=== PATIENT | female | born 1990 | race Caucasian/White ===

== ENCOUNTER 2017-05-28 08:52 | Emergency (ER) | payer MEDICAID, OTHER ==
[2017-05-28] MEDS ORDERED: LORazepam INJ* 2 MG/ML 1 ML VIAL IV PUSH ONE (09:09)
--- NOTE | 2017-05-28 09:42 | RAD ---
HISTORY: Chest discomfort COMPARISONS: None VIEWS:1: Single frontal portable view of the chest at 9:20 AM FINDINGS: LINES AND TUBES: None. CARDIOMEDIASTINAL SILHOUETTE: The cardiomediastinal silhouette is normal for portable technique. PLEURA: The costophrenic angles are sharp. No pleural abnormalities are noted. LUNG PARENCHYMA: The lungs are clear. ABDOMEN: The upper abdomen is clear. There is no subphrenic gas. BONES AND SOFT TISSUES: No bone or soft tissue abnormalities are noted. IMPRESSION: NO ACTIVE CARDIOPULMONARY DISEASE.
[2017-05-28 09:53] LABS: Hematocrit 43 % (35-47); Hemoglobin 14.4 g/dl (12.0-16.0); Mean Corpuscular HGB Conc 34 g/dl (31-36); Mean Corpuscular Hemoglobin 34 pg (27-31); Mean Corpuscular Volume 101 fL (80-97); Mean Platelet Volume 8 um3 (7.4-10.4); Red Blood Count 4.23 10^6/ul (4.0-5.4); Red Cell Distribution Width 12 % (10.5-15); White Blood Count 7.7 10^3/ul (3.5-10.8)
[2017-05-28 10:06] LABS: Albumin 4.3 g/dL (3.2-5.2); BUN/Creatinine Ratio 16.5 (8-20); Calcium 8.9 mg/dL (8.6-10.3); EGFR Non-African American 89.4 (>60); Globulin 2.6 g/dL (2-4); Potassium 3.5 mmol/L (3.5-5.0); Total Bilirubin 0.5 mg/dL (0.2-1.0); Total Protein 6.9 g/dL (6.4-8.9)
[2017-05-28 10:24] LABS: T4 3.98 mcg/mL (6.09-12.23)
[2017-05-28 10:25] LABS: TSH (Thyroid Stimulating Horm) 1.68 mcIU/mL (0.34-5.60)
[2017-05-28 10:34] VITALS: BP 124/71
[2017-05-28 11:10] LABS: Magnesium 1.7 mg/dL (1.9-2.7)
--- NOTE | 2017-05-28 11:20 | ED ---
HPI Chest Pain - HPI Summary HPI Summary: Patient presents to ED with CC of chest burning feeling related to some anxiety. She states she has a hx of anxiety for which she takes buspirone daily. Lately, she has been feeling increased anxiety despite the medication, and has felt a burning sensation x 2 days with some SOB. Denies any chest pain , radiation of pain, diaphoresis, difficulty swallowing, abdominal pain or recent illness. Denies any significant personal medical hx or family history specific to cardiac disease. She is otherwise healthy. She has been under increase stress x2 weeks, and feels it may be d/t her anxiety. She has no medication at home for any breakthrough anxiety. PCP is Dl Guerra. VS stable. Denies recent travel, OCP or smoking hx. - History of Current Complaint Chief Complaint: EDGeneral Time Seen by Provider: 05/28/17 09:01 Hx Obtained From: Patient Hx Last Menstrual Period: 06/11/16 Onset/Duration: Started Days Ago Timing: Intermittent Initial Severity: Mild Current Severity: Mild Pain Intensity: 0 Pain Scale Used: 0-10 Numeric Chest Pain Location: Mid Sternal Chest Pain Radiates: No Character: Burning Aggravating Factor(s): Nothing Alleviating Factor(s): Nothing Associated Signs and Symptoms: Positive: Shortness of Breath - Risk Factors Pulmonary Embolism Risk Factors: Negative - Allergy/Home Medications Allergies/Adverse Reactions: Allergies Allergy/AdvReac Type Severity Reaction Status Date / Time No Known Allergies Allergy Verified 05/28/17 09:12 PMH/Surg Hx/FS Hx/Imm Hx Previously Healthy: Yes Endocrine/Hematology History: Denies: Hx Diabetes, Hx Thyroid Disease Cardiovascular History: Denies: Hx Hypertension, Hx Pacemaker/ICD Respiratory History: Denies: Hx Asthma, Hx Chronic Obstructive Pulmonary Disease (COPD) GI History: Denies: Hx Ulcer History: Denies: Hx Renal Disease Sensory History: Denies: Hx Hearing Aid Psychiatric History: Denies: Hx Panic Disorder Infectious Disease History: No Infectious Disease History: Denies: Hx Hepatitis, Hx Human Immunodeficiency Virus (HIV), History Other Infectious Disease, Traveled Outside the [place] in Last 30 Days - Family History Known Family History: Positive: None - Social History Alcohol Use: Occasionally Substance Use Type: Reports: None Hx Tobacco Use: Yes Smoking Status (MU): Current Every Day Smoker Type: Cigarettes Amount Used/How Often: 1/2 PPD Review of Systems Constitutional: Negative Eyes: Negative Positive: Chest Pain Positive: Shortness Of Breath Gastrointestinal: Negative Positive: no symptoms reported, see HPI Musculoskeletal: Negative Neurological: Negative Positive: Anxious All Other Systems Reviewed And Are Negative: Yes Physical Exam Triage Information Reviewed: Yes Vital Signs On Initial Exam: Initial Vitals Temp Pulse Resp BP Pulse Ox 98.1 F 115 19 143/91 100 05/28/17 08:54 05/28/17 08:54 05/28/17 08:54 05/28/17 08:54 05/28/17 08:54 Vital Signs Reviewed: Yes Appearance: Positive: Well-Appearing, Well-Nourished Skin: Positive: Warm, Skin Color Reflects Adequate Perfusion Head/Face: Positive: Normal Head/Face Inspection Eyes: Positive: EOMI, RAJINDER, Conjunctiva Clear Neck: Positive: Supple, No Lymphadenopathy Respiratory/Lung Sounds: Positive: Clear to Auscultation, Breath Sounds Present Cardiovascular: Positive: Normal, RRR, Pulses are Symmetrical in both Upper and Lower Extremities Abdomen Description: Positive: Nontender Musculoskeletal: Positive: Normal, Strength/ROM Intact Neurological: Positive: Sensory/Motor Intact, Alert, Oriented to Person Place, Time Psychiatric: Positive: Anxious - Lisa Coma Scale Coma Scale Total: 15 Diagnostics - Vital Signs Vital Signs Temp Pulse Resp BP Pulse Ox 05/28/17 10:30 92 124/71 99 05/28/17 10:27 20 05/28/17 10:00 83 127/71 100 05/28/17 09:28 125/87 05/28/17 09:10 98.1 F 102 16 130/82 100 05/28/17 09:04 106 100 05/28/17 09:03 130/82 05/28/17 08:54 98.1 F 115 19 143/91 100 - Laboratory Lab Results: Lab Results 05/28/17 05/28/17 Range/Units 09:30 09:30 WBC 7.7 (3.5-10.8) 10^3/ul RBC 4.23 (4.0-5.4) 10^6/ul Hgb 14.4 (12.0-16.0) g/dl Hct 43 (35-47) % MCV 101 H (80-97) fL MCH 34 H (27-31) pg MCHC 34 (31-36) g/dl RDW 12 (10.5-15) % Plt Count 233 (150-450) 10^3/ul MPV 8 (7.4-10.4) um3 Neut % (Auto) 79.4 (38-83) % Lymph % (Auto) 10.6 L (25-47) % [place] % (Auto) 8.1 (1-9) % Eos % (Auto) 0.7 (0-6) % Baso % (Auto) 1.2 (0-2) % Absolute Neuts (auto) 6.1 (1.5-7.7) 10^3/ul Absolute Lymphs (auto) 0.8 L (1.0-4.8) 10^3/ul Absolute Monos (auto) 0.6 (0-0.8) 10^3/ul Absolute Eos (auto) 0.1 (0-0.6) 10^3/ul Absolute Basos (auto) 0.1 (0-0.2) 10^3/ul Absolute Nucleated RBC 0 10^3/ul Nucleated RBC % 0 Sodium 139 (133-145) mmol/L Potassium 3.5 (3.5-5.0) mmol/L Chloride 107 (101-111) mmol/L Carbon Dioxide 26 (22-32) mmol/L Anion Gap 6 (2-11) mmol/L BUN 13 (6-24) mg/dL Creatinine 0.79 (0.51-0.95) mg/dL Est GFR ( Amer) 115.0 (>60) Est GFR (Non-Af Amer) 89.4 (>60) BUN/Creatinine Ratio 16.5 (8-20) Glucose 110 H (70-100) mg/dL Calcium 8.9 (8.6-10.3) mg/dL Magnesium 1.7 L (1.9-2.7) mg/dL Total Bilirubin 0.50 (0.2-1.0) mg/dL AST 17 (13-39) U/L ALT 14 (7-52) U/L Alkaline Phosphatase 71 (34-104) U/L Total Creatine Kinase 45 (10-223) U/L CK-MB (CK-2) 1.1 (0.6-6.3) ng/mL Myoglobin 11.8 L (14.3-65.8) ng/mL Troponin I 0.00 (<0.04) ng/mL Total Protein 6.9 (6.4-8.9) g/dL Albumin 4.3 (3.2-5.2) g/dL Globulin 2.6 (2-4) g/dL Albumin/Globulin Ratio 1.7 (1-3) TSH 1.68 (0.34-5.60) mcIU/mL Thyroxine (T4) 3.98 L (6.09-12.23) mcg/mL Result Diagrams: 05/28/17 09:30 05/28/17 09:30 Lab Statement: Any lab studies that have been ordered have been reviewed, and results considered in the medical decision making process. Chest Pain Course/Dx - Course Course Of Treatment: Patient given cardiac workup. Trop, xray, ekg all WNL. Labs OK. HR decreased upon arrival to WNL. Ativan 1mg given for anxiety symptoms and symptoms improved. Patient is given anxiety PO rx for breakthrough anxiety. Discussed with patient who agrees she feels this is what has been causing her symptoms. Denies family history or personal hx of cardiac problems. Very low suspician for cardiac relation. She will follow up with PCP next week and determine medication changes at that time. return to ED for worsening symptoms. Return precautions given. Patient understands and agrees with plan. Ok for discharge. - Chest Pain Differential Diagnosis/HQI/PQRI: Angina, Chest Wall, Other: - anxiety - Diagnoses Provider Diagnoses: Acute anxiety Discharge - Discharge Plan Condition: Stable Disposition: HOME Prescriptions: Lorazepam [Ativan 1 MG TAB] 1 mg PO TID #15 tab MDD 3 Patient Education Materials: Lorazepam (By mouth), Anxiety (ED) Referrals: Justin Real MD [Primary Care Provider] - Additional Instructions: Take 1 tab up to three times daily only for breakthrough anxiety not well controlled by your daily medication. Follow up with Dl Guerra either this week or next week if possible. If any symptoms become worse, return to the ED.
== END 2017-05-28 10:53 | disposition home or self-care (01) ==
LOC: ED 08:52
DX: R06.02 Shortness of breath (principal); F17.210 Nicotine dependence, cigarettes, uncomplicated; R07.9 Chest pain, unspecified; F41.9 Anxiety disorder, unspecified
CPT/HCPCS: 36415; 71010; 80053; 82550; 82553; 83735; 83874; 84436; 84443; 84484; 85025; 93005; 96374; 99282; J2060

== ENCOUNTER 2017-11-05 08:54 | Emergency (ER) | payer OTHER ==
[2017-11-05 09:20] VITALS: BP 114/63
--- NOTE | 2017-11-08 01:03 | UC ---
Complaint Female HPI - HPI Summary HPI Summary: Pleasant 27 yo female present with c/o "bump" progressively worse over the last several days. Tried squeezing it to no avail, increased pain and swelling. Thinks she may have seen a "hole" at the bump. Denies other issues. On BCP. No fever /chills. No rash (except "bump"). No GI issues. No hx similar. Does shave, not recently. - History Of Current Complaint Chief Complaint: UCGU Stated Complaint: PERSONAL Time Seen by Provider: 11/05/17 09:58 Hx Obtained From: Patient, Family/Combat Systems Officer Hx Last Menstrual Period: 10/09/17 Pain Intensity: 0 Pain Scale Used: 0-10 Numeric - Allergies/Home Medications Allergies/Adverse Reactions: Allergies Allergy/AdvReac Type Severity Reaction Status Date / Time No Known Allergies Allergy Verified 11/05/17 09:20 Home Medications: Home Medications Omeprazole [Prilosec] 20 mg PO DAILY 11/05/17 [History Confirmed 11/05/17] busPIRone TAB* [Buspar TAB*] 10 mg PO DAILY 11/05/17 [History Confirmed 11/05/17 ] PMH/Surg Hx/FS Hx/Imm Hx Previously Healthy: Yes - Surgical History Surgical History: None - Family History Known Family History: Positive: None - Social History Alcohol Use: Weekly Substance Use Type: None Smoking Status (MU): Current Every Day Smoker Type: Cigarettes Amount Used/How Often: 1/2 PPD Household Exposure Type: Cigarettes - Immunization History Most Recent Influenza Vaccination: NOT UTD Review of Systems Constitutional: Negative Skin: Other - see hpi Eyes: Negative ENT: Negative Respiratory: Negative Cardiovascular: Negative Gastrointestinal: Negative Genitourinary: Other - see hpi Motor: Negative Neurovascular: Negative Musculoskeletal: Negative Neurological: Negative Psychological: Negative Is Patient Immunocompromised?: No All Other Systems Reviewed And Are Negative: Yes Physical Exam Triage Information Reviewed: Yes Appearance: Well-Appearing - conversing easily and appropriately. NAD. Nontoxic appearance., Well-Nourished Vital Signs: Initial Vital Signs Temp 97.7 F 11/05/17 09:11 Pulse 102 11/05/17 09:11 Resp 16 11/05/17 09:11 BP 114/63 11/05/17 09:11 Pulse Ox 100 11/05/17 09:11 Vital Signs Reviewed: Yes Eye Exam: Normal - grossly normal ENT Exam: Normal - grossly normal. No sores reported post oroph. Neck exam: Normal Neck: Positive: Supple Respiratory Exam: Normal - no tachypnea, no dyspnea Cardiovascular Exam: Normal Abdominal Exam: Normal Abdomen Description: Positive: Nontender, Soft Musculoskeletal Exam: Normal - gait steady moves x 4 exts Neurological Exam: Normal - grossly intact Psychological Exam: Normal Skin Exam: Other - L labial region with approx 4cm x 3.5cm x 3 cm redness, swelling. Tender. There is approx 0.75 cm diam opening with yellowish purulence expressed. Complaint Female Dx - Course Course Of Treatment: L labia, likely Bartholin's cyst with spontaneous drainage. Given drainage to exterior, at this point I/D is not indicated. However, if worse or new issues, despite good wound care and po abx, then I/D could be reconsidered. D/w pt exam findings, coa / tx plan, including recommendation for close f/u with pcp (RENALDO ok too). Questions as posed answered to the best of my ability. - Differential Dx/Diagnosis Provider Diagnoses: L labial abscss Discharge - Discharge Plan Condition: Stable Disposition: HOME Prescriptions: Amoxicillin/Clavulanate TAB* [Augmentin TAB 875*] 875 mg PO BID #20 tab Patient Education Materials: Abscess (ED) Forms: *Work Release Referrals: Dl Guerra SPORTS PHYSIOLOGIST [Primary Care Provider] - Additional Instructions: Please follow up with your doctor this week (Saturday) as scheduled. Seek medical attention for worse or new problems in the meantime. Avoid taking antibiotic within 2 hours of omeprazole.
== END 2017-11-05 10:33 | disposition home or self-care (01) ==
LOC: UCEAST 08:54
DX: N76.4 Abscess of vulva (principal); B95.0 Streptococcus, group A, as the cause of diseases classified elsewhere; F17.210 Nicotine dependence, cigarettes, uncomplicated
CPT/HCPCS: 87070; 87077; 99212; G0463

== ENCOUNTER 2017-11-07 22:53 | Emergency (ER) | payer OTHER ==
[2017-11-08] MEDS ORDERED: Ibuprofen TAB* 600 MG PO ONE (00:02)
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
[2017-11-08 01:09] VITALS: BP 124/85
== END 2017-11-08 01:08 | disposition home or self-care (01) ==
LOC: ED 22:53
DX: S00.93XA Contusion of unspecified part of head, initial encounter (principal); Y09 Assault by unspecified means; Y92.9 Unspecified place or not applicable; F17.210 Nicotine dependence, cigarettes, uncomplicated
CPT/HCPCS: 99282; A9270-GY

== ENCOUNTER 2017-12-10 11:58 | Emergency (ER) | payer OTHER ==
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
[2017-12-10 14:33] VITALS: BP 126/69
--- NOTE | 2017-12-10 14:43 | RAD ---
HISTORY: Pelvic pain, bloating COMPARISONS: CT dated December 17, 2003 TECHNIQUE: Multiple transverse and longitudinal ultrasound images were obtained of the pelvis using grayscale, color Doppler, and spectral Doppler imaging using the endovaginal transducer. FINDINGS: UTERUS: The uterus measures 7.4 x 3.3 x 4.3 cm. The uterus is normal in shape, size, contour, and echotexture. ENDOMETRIUM: The endometrial stripe is smooth. The endometrium measures 0.4 cm in thickness. An IUD is noted centrally within the endometrial cavity towards the fundus. CUL-DE-SAC: There is a small amount of simple fluid within the cul-de-sac. This may be physiologic in a reproductive age female. RIGHT OVARY: The right ovary measures 2.8 x 1.7 x 1.6 cm. Normal arterial and venous waveforms are identifiable within the ovary on spectral Doppler imaging. LEFT OVARY: The left ovary measures 3 x 1.7 x 2.5 cm. Normal arterial and venous waveforms are identifiable within the ovary on spectral Doppler imaging. BLADDER: The bladder is not well visualized. OTHER: None IMPRESSION: 1. AN IUD IS NOTED CENTRALLY WITHIN THE ENDOMETRIAL CAVITY TOWARDS THE FUNDUS. 2. THERE IS A SMALL AMOUNT OF SIMPLE FLUID WITHIN THE CUL-DE-SAC. THIS MAY BE PHYSIOLOGIC IN A REPRODUCTIVE AGE FEMALE..
[2017-12-10 19:36] LABS: ABS Basophils 0.2 10^3/ul (0-0.2); ABS Eosinophils 0.2 10^3/ul (0-0.6); ABS Lymphocytes 2.5 10^3/ul (1.0-4.8); ABS Nucleated RBC 0 10^3/ul; Eosinophil % 1.5 % (0-6); Hematocrit 43 % (35-47); Hemoglobin 14.5 g/dl (12.0-16.0); Lymphocyte % 22.9 % (25-47); Mean Corpuscular HGB Conc 34 g/dl (31-36); Mean Corpuscular Hemoglobin 34 pg (27-31); Mean Corpuscular Volume 101 fL (80-97); Mean Platelet Volume 8 um3 (7.4-10.4); Nucleated Red Blood Cells % 0; Platelet Count 284 10^3/ul (150-450); Red Blood Count 4.26 10^6/ul (4.0-5.4); Red Cell Distribution Width 12 % (10.5-15); White Blood Count 10.8 10^3/ul (3.5-10.8)
[2017-12-10 19:50] LABS: EGFR Non-African American 79.3 (>60)
--- NOTE | 2017-12-11 10:55 | UC ---
- Progress Note Progress Note: CBC, CMP reviewed no change to plan [facility] 12/11/2017
== END 2017-12-10 15:18 | disposition home or self-care (01) ==
LOC: UCEAST 11:58
DX: R10.84 Generalized abdominal pain (principal); R10.2 Pelvic and perineal pain; Z97.5 Presence of (intrauterine) contraceptive device; Z32.02 Encounter for pregnancy test, result negative; F17.210 Nicotine dependence, cigarettes, uncomplicated
CPT/HCPCS: 36415; 76830; 80053; 81003; 84702; 85025; 87086; 99211; G0463

== ENCOUNTER 2018-09-18 18:32 | Emergency (ER) | payer SELFPAY ==
[2018-09-18 18:39] VITALS: BP 148/93
--- NOTE | 2018-09-18 18:53 | UC ---
Elbow Pain - HPI Summary HPI Summary: 28 yo female presents with RIGHT elbow pain. She tells me that yesterday she was putting up bharat decorations and slipped on the ice. Came down on her right elbow. Has had pain since that time. Has been applying ice. Has some "shocks" of pain from elbow down ulnar aspect of forearm. - History of Current Complaint Chief Complaint: UCUpperExtremity Stated Complaint: ARM INJURY Time Seen by Provider: 09/18/18 18:41 Hx Obtained From: Patient Hx Last Menstrual Period: August 2018, has IUD Severity Initially: Moderate Severity Currently: Moderate Pain Intensity: 5 Pain Scale Used: 0-10 Numeric - Allergies/Home Medications Allergies/Adverse Reactions: Allergies Allergy/AdvReac Type Severity Reaction Status Date / Time No Known Allergies Allergy Verified 09/18/18 18:39 PMH/Surg Hx/FS Hx/Imm Hx Neurological History: Migraine Psychological History: Anxiety - Surgical History Surgical History: None - Family History Known Family History: Positive: Hypertension - Social History Occupation: Employed Full-time Lives: With Family Alcohol Use: Occasionally Substance Use Type: None Smoking Status (MU): Current Every Day Smoker Type: Cigarettes Amount Used/How Often: 1/2 PPD Household Exposure Type: Cigarettes - Immunization History Most Recent Influenza Vaccination: NOT UTD Review of Systems All Other Systems Reviewed And Are Negative: Yes Constitutional: Positive: Negative Skin: Positive: Negative Neurovascular: Positive: Negative Musculoskeletal: Positive: Other: - Right elbow pain Neurological: Positive: Negative Psychological: Positive: Negative Physical Exam - Summary Physical Exam Summary: GENERAL: NAD. WDWN. No pain distress. SKIN: No rashes, sores, lesions, or open wounds. CHEST: No accessory muscle use. Breathing comfortably and in no distress. CV: Pulses intact radial and ulnar. Cap refill <2seconds MSK: Moderate TTP at cubital tunnel. NTTP supratrochlear or radial head. FROM, but extension is painful. Farm Assistant strength intact. Mild edema. NEURO: Alert. Sensations intact hand and all fingers. PSYCH: Age appropriate behavior. Triage Information Reviewed: Yes Vital Signs: Initial Vital Signs Temp 98.9 F 09/18/18 18:36 Pulse 72 09/18/18 18:36 Resp 12 09/18/18 18:36 BP 148/93 09/18/18 18:36 Pulse Ox 100 09/18/18 18:36 Vital Signs Reviewed: Yes Elbow Pain Course/Dx - Course Course Of Treatment: XR: No radiologist reading after 1800, therefore wet read by myself is negative for fracture. Pt was placed in a sling and advised to RICE and take tylenol/ibuprofen for discomfort. F/u if symptoms persist. - Differential Dx/Diagnosis Provider Diagnosis: Elbow contusion Discharge - Sign-Out/Discharge Documenting (check all that apply): Patient Departure All imaging exams completed and their final reports reviewed: No - Discharge Plan Condition: Stable Disposition: HOME Patient Education Materials: Contusion in Adults (ED) Forms: *Work Release Referrals: Dl Guerra NP [Primary Care Provider] - Additional Instructions: If you develop a fever, shortness of breath, chest pain, new or worsening symptoms - please call your PCP or go to the ED. Your blood pressure was high at todays visit. Please see your primary provider within 4 weeks for recheck and re-evaluation. 1) Rest, Ice, and elevate your elbow/arm as much as possible 2) Use the sling for added support and pain relief 3) If your symptoms worsen - please be rechecked - Billing Disposition and Condition Condition: STABLE Disposition: Home
--- NOTE | 2018-09-19 10:37 | UC ---
- Progress Note Progress Note: XR: IMPRESSION: NO EVIDENCE FOR FRACTURE. No change in plan of care Course/Dx - Diagnoses Provider Diagnoses: Elbow contusion Discharge - Sign-Out/Discharge Documenting (check all that apply): Post-Discharge Follow Up All imaging exams completed and their final reports reviewed: Yes - Discharge Plan Condition: Stable Disposition: HOME Patient Education Materials: Contusion in Adults (ED) Forms: *Work Release Referrals: Dl Guerra NP [Primary Care Provider] - Additional Instructions: If you develop a fever, shortness of breath, chest pain, new or worsening symptoms - please call your PCP or go to the ED. Your blood pressure was high at todays visit. Please see your primary provider within 4 weeks for recheck and re-evaluation. 1) Rest, Ice, and elevate your elbow/arm as much as possible 2) Use the sling for added support and pain relief 3) If your symptoms worsen - please be rechecked - Billing Disposition and Condition Condition: STABLE Disposition: Home
== END 2018-09-18 19:10 | disposition home or self-care (01) ==
LOC: UCEAST 18:32
DX: S50.01XA Contusion of right elbow, initial encounter (principal); W00.0XXA Fall on same level due to ice and snow, initial encounter; Y92.9 Unspecified place or not applicable; F17.210 Nicotine dependence, cigarettes, uncomplicated
CPT/HCPCS: 99211; G0463

== ENCOUNTER 2019-07-16 08:12 | Emergency (ER) | payer OTHER ==
[2019-07-16 08:54] LABS: ABS Lymphocytes 0.4 10^3/ul (1.0-4.8); ABS Monocytes 0.8 10^3/ul (0-0.8); Eosinophil % 0.3 %; Hematocrit 44 % (35-47); Hemoglobin 15.1 g/dL (12.0-16.0); Lymphocyte % 6.8 %; Mean Corpuscular HGB Conc 34 g/dL (31-36); Mean Corpuscular Hemoglobin 36 pg (27-31); Mean Corpuscular Volume 104 fL (80-97); Mean Platelet Volume 7.5 fL (7.4-10.4); Platelet Count 257 10^3/uL (150-450); Red Blood Count 4.24 10^6 /uL (3.70-4.87); Red Cell Distribution Width 12 % (10-15); White Blood Count 6.3 10^3/uL (3.5-10.8)
--- OUTSIDE RECORDS SUMMARY | 2019-07-16 08:54 | XMS REPORT | Continuity of Care Document ---
:1990 External Reference #:[id number] Author Name Dl Guerra NP (transmitted by agent of provider Tiffany Feliciano) Address [address], [place] [address] Care Team Providers Name Role Phone Remberto Stout MD - Internal Care Team Information Criminal [employer]igator [employer] Medicine Ira Barrientos MD - Internal Care Team Information Criminal [employer]igator [employer] [phone] Medicine Problems Active Problems Provider Date Anxiety Dl Guerra NP Onset: 10/11/2016 Gastroesophageal reflux disease Dl Guerra NP Onset: 10/11/2016 Social History Type Date Description Comments Sex Unknown Tobacco Use Start: Unknown Light tobacco smoker (10 1/2ppd x 8 years or fewer cigarettes/day) Smoking Status Reviewed: 06/01/19 Light tobacco smoker (10 1/2ppd x 8 years or fewer cigarettes/day) ETOH Use Occasionally consumes alcohol Tobacco Use Start: Unknown Patient is a current smoker, smokes every day Recreational Drug Use Denies Drug Use Exercise Type/Frequency Exercises sporadically Allergies, Adverse Reactions, Alerts Description No Known Drug Allergies Medications Active Medications SIG Qnty Indications Ordering Date Provider Escitalopram Oxalate 1/2 tab once 30tabs F32.89 Dl Guerra NP 06/01/2019 10mg daily for 1 week Tablets then increase to 1 tab daily. Buspirone HCL take 2 & 1/2 150tabs F41.9 Dl Guerra NP 01/22/2017 10mg tablets by mouth Tablets two times a day Butalbital/Acetaminoph take one tablet 30tabs Dl Guerra NP 10/04/2016 en/Caffeine by mouth twice a 50-325-40mg day as needed Tablets for headache Calcium Magnesium 750 daily Unknown 300-300mg Tablets Acetaminophen Extra 1-2 tabs daily Unknown Strength as needed for 500mg Tablets pain Medications Administered in Office Medication SIG Qnty Indications Ordering Provider Date PPD Injection Dl Guerra NP 06/01/2019 Immunizations Description No Information Available Vital Signs Date Vital Result Comment 06/01/2019 1:19pm Height 62.75 inches 5'2.75" Weight 108.00 lb Heart Rate 129 /min BP Systolic 141 mmHg BP Diastolic 83 mmHg Body Temperature 98.6 F O2 % BldC Oximetry 95 % BMI (Body Mass Index) 19.3 kg/m2 11/07/2018 11:00am Weight 116.50 lb Heart Rate 101 /min BP Systolic 150 mmHg BP Diastolic 90 mmHg Body Temperature 97.6 F O2 % BldC Oximetry 93 % Results Description No Information Available Procedures Description No Information Available Medical Devices Description No Information Available Encounters Description No Information Available Assessments Date Code Description Provider 06/01/2019 Z00.00 Encounter for general adult medical examination Dl Guerra NP without abnormal findings 06/01/2019 F41.9 Anxiety disorder, unspecified Dl Guerra NP 06/01/2019 Z11.1 Encounter for screening for respiratory tuberculosis Dl Guerra NP 06/01/2019 F32.89 Other specified depressive episodes Dl Guerra NP Plan of Treatment Future Appointment(s):06/29/2019 4:20 pm - Dl Guerra NP at [facility]06/01/2019 - Dl Guerra NPZ00.00 Encounter for general adult medical examination without abnormal findingsComments:VACCINES:Flu shot every year in the fall.You indicated that your last tetanus vaccine was in 2010. You will need a booster in 2020 unless you sustain a significant injury at this time. SCREENING:Cholesterol and fasting blood glucose every few years.HIV/STI testing offered yearly.Monthly self breast exams recommended.Pap: I recommend scheduling for a pap at [facility].F41.9 Anxiety disorder, unspecifiedComments:Continue on current dose of buspirone.Z11.1 Encounter for screening for respiratory zyezovbxetzlD23.89 Other specified depressive episodesNew Medication:Escitalopram Oxalate 10 mg - 1/2 tab once daily for 1 week then increase to 1 tab daily.Follow up:4 weeks. Functional Status Description No Information Available Mental Status Description No Information Available Referrals Description No Information Available
[2019-07-16 09:24] LABS: Acetaminophen < 15 mcg/mL; Alcohol < 10 mg/dL (<10); Salicylate < 2.50 mg/dL (<30)
[2019-07-16 09:34] LABS: ALT 34 U/L (7-52); AST 47 U/L (13-39); Albumin 4.7 g/dL (3.2-5.2); Albumin/Globulin Ratio 1.7 (1-3); Alkaline Phosphatase 116 U/L (34-104); Anion Gap 13 mmol/L (2-11); Blood Urea Nitrogen 9 mg/dL (6-24); CO2 Carbon Dioxide 27 mmol/L (22-32); Calcium 9.8 mg/dL (8.6-10.3); Chloride 99 mmol/L (101-111); EGFR African American 112.2 (>60); EGFR Non-African American 92.7 (>60); Globulin 2.8 g/dL (2-4); Glucose 123 mg/dL (70-100); Potassium 3.8 mmol/L (3.5-5.0); Sodium 139 mmol/L (135-145); Total Protein 7.5 g/dL (6.4-8.9)
[2019-07-16 09:37] LABS: TSH (Thyroid Stimulating Horm) 2.68 mcIU/mL (0.34-5.60)
[2019-07-16] MEDS ORDERED: Lidocaine 2% VISCOUS* 15 ML UDC PO ONE (10:06)
[2019-07-16] MEDS ORDERED: Al Hydrox/Mg Hydrox/Simet LIQ* 30 ML UDC PO ONE (10:06)
--- NOTE | 2019-07-16 10:29 | ED ---
Psychiatric Complaint - HPI Summary HPI Summary: Pt is a 29 y/o F presenting to the ED for a psychiatric compliant. Pt is present with her mother. Pt reports that on 07/15/19 at approximately 21:00 she began to feel a non-radiating burning sensation in the midsternal chest area and the left side of the face. Pt feels as if she was having a panic attack and slept with an ice pack on her head. Pt states she has chest pressure as if an elephant is on her chest. Pt admits rhinorrhea, SOB, cough, chills, and fever at home. Pt reports similar symptoms in past, but pt states the burning sensation in the chest is new. Pt typically takes anxiety medication when she feels similar symptoms. Pt reports recent stress after changing jobs. Pt reports low appetite the last few days. Pt denies any erythema of eyes, sore throat, abdominal pain, N/V, dysuria, hematuria, edema, rash, or dizziness. Pt admits she drank 3 beers before this episode of CP and drinks alcohol daily. Pt has anxiety after drinking alcohol and states she feels shaky and in withdrawal when she does not drink alcohol. Pt has sought help for alcohol use in the past. Pt was previously seen at [facility], but stopped going. Pt has seen mental therapist and has a diagnosis of depression. Pt states she has taken Zoloft which has not helped. Pt admits a Hx of self-harm and SI, but does not have plan. Pt previously attempted alcohol OD and ibuprofen OD. Pt denies a PMHx of DM or HTN. Pt admits a FMHx of blood clots. Pt has no LNMP because she has an IUD. - History Of Current Complaint Chief Complaint: EDGeneral Time Seen by Provider: 07/16/19 08:25 Hx Obtained From: Patient Hx Last Menstrual Period: August 2018, has IUD Onset/Duration: Lasting Hours, Still Present Timing: Hours Severity Initially: Moderate Severity Currently: Moderate Aggravating Factor(s): Recent Stress, Alcohol Use Alleviating Factor(s): Nothing Associated Signs And Symptoms: Positive: Appetite Change - Low Related History: Positive For: Prior Psychiatric Issues Has Suicidal: Reports: Thoughts. Denies: With A Plan - Allergies/Home Medications Allergies/Adverse Reactions: Allergies Allergy/AdvReac Type Severity Reaction Status Date / Time No Known Allergies Allergy Verified 07/16/19 08:32 PMH/Surg Hx/FS Hx/Imm Hx Previously Healthy: Yes Endocrine/Hematology History: Denies: Hx Diabetes, Hx Thyroid Disease Cardiovascular History: Denies: Hx Hypertension, Hx Pacemaker/ICD Respiratory History: Denies: Hx Asthma, Hx Chronic Obstructive Pulmonary Disease (COPD) GI History: Denies: Hx Ulcer History: Denies: Hx Renal Disease Sensory History: Denies: Hx Hearing Aid Psychiatric History: Denies: Hx Panic Disorder Infectious Disease History: No Infectious Disease History: Denies: Hx Hepatitis, Hx Human Immunodeficiency Virus (HIV), History Other Infectious Disease, Traveled Outside the [place] in Last 30 Days - Family History Known Family History: Positive: Hypertension - Social History Alcohol Use: Occasionally Hx Substance Use: No Substance Use Type: Reports: None Hx Tobacco Use: Yes Smoking Status (MU): Current Every Day Smoker Type: Cigarettes Amount Used/How Often: 1/2 PPD Review of Systems Positive: Fever, Chills, Other - Positive low appetite Negative: Erythema Positive: Other - Positive rhinorrhea. Negative: Sore Throat Positive: Chest Pain Positive: Shortness Of Breath, Cough Negative: Abdominal Pain, Vomiting, Nausea Negative: dysuria, hematuria Positive: Myalgia - Left side of face. Negative: Edema Negative: Rash Neurological: Other - Negative dizziness Positive: Other - SI and self-harm, resolved All Other Systems Reviewed And Are Negative: Yes Physical Exam - Summary Physical Exam Summary: Constitutional: Well-developed, Well-nourished, Alert. (-) Distressed Skin: Warm, Dry HENT: Normocephalic; Atraumatic Eyes: Conjunctiva normal Neck: Musculoskeletal ROM normal neck. (-) JVD, (-) Stridor, (-) Tracheal deviation Cardio: Rhythm regular, rate normal, Heart sounds normal; Intact distal pulses; The pedal pulses are 2+ and symmetric. Radial pulses are 2+ and symmetric. (-) Murmur. No reproducible pain on exam. Pulmonary/Chest wall: Effort normal. (-) Respiratory distress, (-) Wheezes, (-) Rales Abd: Soft, (-) tenderness, (-) Distension, (-) Guarding, (-) Rebound Musculoskeletal: (-) Edema Lymph: (-) Cervical adenopathy Neuro: Alert, Oriented x3 Psych: Mood and affect Normal. Tearful. Triage Information Reviewed: Yes Vital Signs On Initial Exam: Initial Vitals Temp Pulse Resp BP Pulse Ox 98.5 F 88 16 146/81 100 07/16/19 08:22 07/16/19 08:22 07/16/19 08:22 07/16/19 08:22 07/16/19 08:22 Vital Signs Reviewed: Yes Procedures - Sedation Patient Received Moderate/Deep Sedation with Procedure: No Diagnostics - Vital Signs Vital Signs Temp Pulse Resp BP Pulse Ox 07/16/19 08:22 98.5 F 88 16 146/81 100 - Laboratory Lab Results: Lab Results 07/16/19 07/16/19 07/16/19 Range/Units 08:32 08:32 08:34 WBC 6.3 (3.5-10.8) 10^3/uL RBC 4.24 (3.70-4.87) 10^6 /uL Hgb 15.1 (12.0-16.0) g/dL Hct 44 (35-47) % MCV 104 H (80-97) fL MCH 36 H (27-31) pg MCHC 34 (31-36) g/dL RDW 12 (10-15) % Plt Count 257 (150-450) 10^3/uL MPV 7.5 (7.4-10.4) fL Neut % (Auto) 79.7 % Lymph % (Auto) 6.8 % Sawyer % (Auto) 12.7 % Eos % (Auto) 0.3 % Baso % (Auto) 0.5 % Absolute Neuts (auto) 5.0 (1.5-7.7) 10^3/ul Absolute Lymphs (auto) 0.4 L (1.0-4.8) 10^3/ul Absolute Monos (auto) 0.8 (0-0.8) 10^3/ul Absolute Eos (auto) 0.0 (0-0.6) 10^3/ul Absolute Basos (auto) 0.0 (0-0.2) 10^3/ul Absolute Nucleated RBC 0.0 10^3/ul Nucleated RBC % 0.0 D-Dimer, Quantitative < 200 (Less Than 230) ng/mL Sodium 139 (135-145) mmol/L Potassium 3.8 (3.5-5.0) mmol/L Chloride 99 L (101-111) mmol/L Carbon Dioxide 27 (22-32) mmol/L Anion Gap 13 H (2-11) mmol/L BUN 9 (6-24) mg/dL Creatinine 0.75 (0.51-0.95) mg/dL Est GFR ( Amer) 112.2 (>60) Est GFR (Non-Af Amer) 92.7 (>60) BUN/Creatinine Ratio 12.0 (8-20) Glucose 123 H (70-100) mg/dL Calcium 9.8 (8.6-10.3) mg/dL Total Bilirubin 0.80 (0.2-1.0) mg/dL AST 47 H (13-39) U/L ALT 34 (7-52) U/L Alkaline Phosphatase 116 H (34-104) U/L Troponin I 0.00 (<0.04) ng/mL Total Protein 7.5 (6.4-8.9) g/dL Albumin 4.7 (3.2-5.2) g/dL Globulin 2.8 (2-4) g/dL Albumin/Globulin Ratio 1.7 (1-3) TSH 2.68 (0.34-5.60) mcIU/mL Salicylates < 2.50 (<30) mg/dL Acetaminophen < 15 mcg/mL Serum Alcohol < 10 (<10) mg/dL Result Diagrams: 19 08:32 07/16/19 08:32 Lab Statement: Any lab studies that have been ordered have been reviewed, and results considered in the medical decision making process. - Radiology Chest x-ray Radiology Interpretation Completed By: Radiologist Summary of Radiographic Findings: Chest x-ray IMPRESSION: NO ACTIVE CARDIOPULMONARY DISEASE. Reviewed by ED physician. - EKG 08:16 Cardiac Rate: NL - 85 BPM EKG Rhythm: Sinus Rhythm ST Segment: Normal Ectopy: None Summary of EKG Findings: EKG at 08:16 shows 85 BPM with normal sinus rhythm, no STEMI. Reviewed and interpreted by ED physician. Course/Dx - Course Course Of Treatment: Pt is a 29 y/o F presenting to the ED for a psychiatric compliant. Pt is present with her mother. Pt reports that on 07/15/19 at approximately 21:00 she began to feel a non-radiating burning sensation in the midsternal chest area and the left side of the face. Pt feels as if she was having a panic attack and slept with an ice pack on her head. Pt states she has chest pressure as if an elephant is on her chest. Pt admits rhinorrhea, SOB, cough, chills, and fever at home. Pt reports similar symptoms in past, but pt states the burning sensation in the chest is new. Pt typically takes anxiety medication when she feels similar symptoms. Pt reports recent stress after changing jobs. Pt reports low appetite the last few days. Pt denies any erythema of eyes, sore throat, abdominal pain, N/V, dysuria, hematuria, edema, rash, or dizziness. Pt admits she drank 3 beers before this episode of CP and drinks alcohol daily. Pt has anxiety after drinking alcohol and states she feels shaky and in withdrawal when she does not drink alcohol. Pt has sought help for alcohol use in the past. Pt was previously seen at [facility], but stopped going. Pt has seen mental therapist and has a diagnosis of depression. Pt states she has taken Zoloft which has not helped. Pt admits a Hx of self-harm and SI, but does not have plan. Pt previously attempted alcohol OD and ibuprofen OD. Pt denies a PMHx of DM or HTN. Pt admits a FMHx of blood clots. Pt has no LNMP because she has an IUD. On exam, pt was tearful with no reproducible pain. Chest x-ray IMPRESSION: NO ACTIVE CARDIOPULMONARY DISEASE. EKG at 08:16 shows 85 BPM with normal sinus rhythm, no STEMI. Laboratory abnormal findings: MCV 104, MCH 36, absolute lymphs 0.4, chloride 99, anion gap 13, glucose 123, AST 47, and alkaline phosphatase 116. In the ED course, pt was given al hydrox/Mg simethicone 30 ml PO, lidocaine 2% 15 ml PO, and lorazepam 1 mg PO. At 14:08, ged teacher reports that pts case was reviewed by Dr. Sorensen. Pt will be discharged home with a diagnosis of substance induced mood disorder. - Differential Dx/Clinical Impression Provider Diagnosis: Substance induced mood disorder - Physician Notifications Discussed Care Of Patient With: Ronald Sorensen Time Discussed With Above Provider: 14:08 - At 14:08, MH ged teacher reports that pts case was reviewed by Dr. Sorensen. Pt will be discharged home with a diagnosis of substance induced mood disorder. Discharge ED - Sign-Out/Discharge Documenting (check all that apply): Patient Departure - Discharge - Discharge Plan Condition: Stable Disposition: HOME Prescriptions: hydrOXYzine HCL TAB* [Atarax TAB 50 MG *] 50 mg PO TID PRN #30 tab PRN Reason: Agitation/Anxiety Omeprazole 20 mg PO DAILY #14 tab Patient Education Materials: Mood Disorders (ED), Depression (ED), Abuse of Alcohol (ED), Anxiety (ED), Suicide Prevention (ED) Forms: *Work Release Referrals: EBONY Villalobos [Other] (please follow up as soon as possible) [facility] [Outside] (Please follow up with [facility] and AA meetings as soon as possible) Dl Guerra, JANIS [Primary Care Provider] - Additional Instructions: Return to the ED for any new or worsening symptoms. Follow up with PCP in 2-3 days. - Attestation Statements Document Initiated by Scribe: Yes Documenting Scribe: Barbara Gaxiola Provider For Whom Scribe is Documenting (Include Credential): Elder Brandt MD Scribe Attestation: Barbara Hernandez, scribed for Elder Brandt MD on 08/03/19 at 1023. Status of Scribe Document: Ready
[2019-07-16] MEDS ORDERED: LORazepam TAB(*) 1 MG PO ONE (14:15)
[2019-07-16 14:41] VITALS: BP 142/96
== END 2019-07-16 14:35 | disposition home or self-care (01) ==
LOC: ED 08:12
DX: F19.94 Other psychoactive substance use, unspecified with psychoactive substance-induced mood disorder (principal); F17.210 Nicotine dependence, cigarettes, uncomplicated; F32.9 Major depressive disorder, single episode, unspecified; Z79.899 Other long term (current) drug therapy
CPT/HCPCS: 36415; 71045; 80053; 80320; 80329; 84443; 84484; 85025; 85379; 93005; 99285; A9270-GY; G0480

== ENCOUNTER 2019-08-17 21:06 | Observation (INO) | payer OTHER ==
--- OUTSIDE RECORDS SUMMARY | 2019-08-17 21:29 | XMS REPORT | Continuity of Care Document ---
:1990 External Reference #:[id number] Author Name Dl Guerra NP (transmitted by agent of provider Gita Pinon) Address [address], [place] [address] Care Team Providers Name Role Phone Remberto Stout MD - Internal Care Team Information [employer] [phone] Medicine Ira Barrientos MD - Internal Care Team Information [employer] [facility] Medicine Problems Active Problems Provider Date Anxiety Dl Guerra NP Onset: 10/11/2016 Gastroesophageal reflux disease Dl Guerra NP Onset: 10/11/2016 Social History Type Date Description Comments Sex Unknown Tobacco Use Start: Unknown Light tobacco smoker (10 1/2ppd x 8 years or fewer cigarettes/day) Smoking Status Reviewed: 07/17/19 Light tobacco smoker (10 1/2ppd x 8 years or fewer cigarettes/day) ETOH Use Occasionally consumes alcohol Tobacco Use Start: Unknown Patient is a current smoker, smokes every day Recreational Drug Use Denies Drug Use Exercise Type/Frequency Exercises sporadically Allergies, Adverse Reactions, Alerts Description No Known Drug Allergies Medications Active Medications SIG Qnty Indications Ordering Date Provider Blood Pressure Monitor check bp twice 1units R03.0 Dl Guerra NP 2018 Auto Inflate weekly at home Misc Escitalopram Oxalate 1 tab daily. 30tabs F32.89 Dl Guerra NP 06/01/2019 10mg Tablets Buspirone HCL take 2 & 1/2 150tabs F41.9 Dl Guerra NP 01/22/2017 10mg tablets by mouth Tablets two times a day Butalbital/Acetaminoph take one tablet 30tabs Dl Guerra NP 10/04/2016 en/Caffeine by mouth twice a 50-325-40mg day as needed Tablets for headache Calcium Magnesium 750 daily Unknown 300-300mg Tablets Acetaminophen Extra 1-2 tabs daily Unknown Strength as needed for 500mg Tablets pain Omeprazole 1 by mouth once K21.9 Unknown 20mg Capsules a day DR Figueroazijean HCL 1 tab by mouth Unknown 50mg at bedtime as Tablets needed insomnia and anxiety Medications Administered in Office Medication SIG Qnty Indications Ordering Provider Date PPD Injection Dl Guerra NP 06/01/2019 Immunizations Description No Information Available Vital Signs Date Vital Result Comment 07/17/2019 4:30pm Height 62.75 inches 5'2.75" Weight 114.38 lb Heart Rate 94 /min BP Systolic 147 mmHg BP Diastolic 97 mmHg BP Systolic Recheck 134 mmHg BP Diastolic Recheck 94 mmHg Body Temperature 98.8 F O2 % BldC Oximetry 97 % BMI (Body Mass Index) 20.4 kg/m2 06/01/2019 1:19pm Height 62.75 inches 5'2.75" Weight 108.00 lb Heart Rate 129 /min BP Systolic 141 mmHg BP Diastolic 83 mmHg Body Temperature 98.6 F O2 % BldC Oximetry 95 % BMI (Body Mass Index) 19.3 kg/m2 Results Test Date Facility Test Result H/L Range Note Laboratory test [facility] D Dimer < 200 Normal Less Than 1 finding [address] Quantitative ng/mL [address] [place] [address] [phone] CBC Auto Diff [facility] White Blood Count 6.3 Normal 3.5-10.[address] 10^3/[place] [address] [phone] Red Blood Count 4.24 10^6/uL Normal 3.70-4.87 Hemoglobin 15.1 g/dL Normal 12.0-16.0 Hematocrit 44 % Normal 35-47 Mean Corpuscular Volume 104 fL High 80-97 Mean Corpuscular Hemoglobin 36 pg High 27-31 Mean Corpuscular HGB Conc 34 g/dL Normal 31-36 Red Cell Distribution Width 12 % Normal 10-15 Platelet Count 257 10^3/uL Normal 150-450 Mean Platelet Volume 7.5 fL Normal 7.4-10.4 Abs Neutrophils 5.0 10^3/uL Normal 1.5-7.7 Abs Lymphocytes 0.4 10^3/uL Low 1.0-4.8 Abs Monocytes 0.8 10^3/uL Normal 0-0.8 Abs Eosinophils 0.0 10^3/uL Normal 0-0.6 Abs Basophils 0.0 10^3/uL Normal 0-0.2 Abs Nucleated RBC 0.0 10^3/uL Granulocyte % 79.7 % Lymphocyte % 6.8 % Monocyte % 12.7 % Eosinophil % 0.3 % Basophil % 0.5 % Nucleated Red Blood Cells % 0.0 Laboratory test 07/16/2019 [facility] Troponin-I (TnI) 0.00 ng/ mL <0.04 2 finding [address] [place] [address] [phone] Acetaminophen < 15 g/mL 3 Alcohol < 10 mg/dL Normal <10 Salicylate < 2.50 mg/dL <30 Comp Metabolic 07/16/2019 [facility] Sodium 139 mmol/L Normal 135-145 Panel [address] [place] [address] [phone] Potassium 3.8 mmol/L Normal 3.5-5.0 Chloride 99 mmol/L Low 101-111 Co2 Carbon Dioxide 27 mmol/L Normal 22-32 Anion Gap 13 mmol/L High 2-11 Glucose 123 mg/dL High 70-100 Blood Urea Nitrogen 9 mg/dL Normal 6-24 Creatinine 0.75 mg/dL Normal 0.51-0.95 BUN/Creatinine Ratio 12.0 Normal 8-20 Calcium 9.8 mg/dL Normal 8.6-10.3 Total Protein 7.5 g/dL Normal 6.4-8.9 Albumin 4.7 g/dL Normal 3.2-5.2 Globulin 2.8 g/dL Normal 2-4 Albumin/Globulin Ratio 1.7 Normal 1-3 Total Bilirubin 0.80 mg/dL Normal 0.2-1.0 Alkaline Phosphatase 116 U/L High 34-104 Alt 34 U/L Normal 7-52 Ast 47 U/L High 13-39 Egfr Non- 92.7 >60 Egfr 112.2 >60 4 Laboratory 07/16/2019 [facility] TSH (Thyroid 2.68 Normal 0.34 -5.[address] Horm) mcIU/[place] [address] [phone] 1 Please note: The following may produce a false positive D Dimer test: - Rheumatoid factor greater than 60 IU/ml - Plasma hemoglobin greater than 0.05 gm/dl - Bilirubin greater than 50 mg/dl - Lipids greater than 1000 mg/dl - FDP greater than 20 ug/ml 2 Troponin-I testing on Plasma Separator Tubes (PST) has a known false positive rate of 0.20-0.40%. All positive troponins reflex immediately to secondary confirmatory testing. Using the [employer] Access Immunoassay systems, the 99th percentile upper reference limit was demonstrated to be < 0.03 ng/mL. 3 Therapeutic concentration: <50 ug/mL Toxic concentration: >120 ug/mL 4 Because ethnic data is not always readily available, this report includes an eGFR for both -Americans and non- Americans. The National Kidney Disease Education Program (NKDEP) does not endorse the use of the MDRD equation for patients that are not between the ages of 18 and 70, are , have extremes of body size, muscle mass, or nutritional status, or are non- or non-. According to the National Kidney Foundation, irrespective of diagnosis, the stage of the disease is based on the level of kidney function: Stage Description GFR(mL/min/1.73 m(2)) 1 Kidney damage with normal or decreased GFR 90 2 Kidney damage with mild decrease in GFR 60-89 3 Moderate decrease in GFR 30-59 4 Severe decrease in GFR 15-29 5 Kidney failure <15 (or dialysis) Procedures Description No Information Available Medical Devices Description No Information Available Encounters Type Date Location Provider Dx Diagnosis Office Visit 06/01/2019 [facility] Dl Guerra NP Z00.00 Encntr for general 1:00p Medicine - [facility] adult medical exam w/o abnormal findings F41.9 Anxiety disorder, unspecified Z11.1 Encounter for screening for respiratory tuberculosis F32.89 Other specified depressive episodes Assessments Date Code Description Provider 07/17/2019 F41.9 Anxiety disorder, unspecified Dl Guerra NP 07/17/2019 R03.0 Elevated blood-pressure reading, without diagnosis Dl Guerra NP of hypertension 06/03/2019 Z11.1 Encounter for screening for respiratory tuberculosis Nurse Visit A 06/01/2019 Z00.00 Encounter for general adult medical examination Dl Guerra NP without abnormal findings 06/01/2019 F41.9 Anxiety disorder, unspecified Dl Guerra NP 06/01/2019 Z11.1 Encounter for screening for respiratory tuberculosis Dl Guerra NP 06/01/2019 F32.89 Other specified depressive episodes Dl Guerra NP Plan of Treatment Future Appointment(s):08/24/2019 4:00 pm - Dl Guerra NP at [facility]07/17/2019 - Dl Guerra NPF41.9 Anxiety disorder, unspecifiedComments:Continue on current dose of Lexapro. If you feel that needs to increase you can start taking 15mg.R03.0 Elevated blood-pressure reading, without diagnosis of hypertensionNew Medication:Blood Pressure Monitor Auto Inflate - check bp twice weekly at homeComments:Your blood pressure is elevated today. I recommend that you try to reduce sodium and caffeine intake, and try to increase exercise. Check your blood pressure twice weekly for the next couple of weeks and record to bring to your next visit. If this remains elevated it may become necessary to start you on a medication.Follow up:4 weeks Functional Status Description No Information Available Mental Status Description No Information Available Referrals Description No Information Available
[2019-08-17 22:22] LABS: ABS Basophils 0.1 10^3/ul (0-0.2); ABS Eosinophils 0.2 10^3/ul (0-0.6); ABS Lymphocytes 1.8 10^3/ul (1.0-4.8); ABS Monocytes 0.8 10^3/ul (0-0.8); ABS Neutrophils 3.1 10^3/ul (1.5-7.7); Eosinophil % 2.6 %; Hematocrit 43 % (35-47); Hemoglobin 14.6 g/dL (12.0-16.0); Lymphocyte % 30.6 %; Mean Corpuscular HGB Conc 34 g/dL (31-36); Mean Corpuscular Hemoglobin 35 pg (27-31); Mean Corpuscular Volume 103 fL (80-97); Mean Platelet Volume 7.3 fL (7.4-10.4); Nucleated Red Blood Cells % 0.1; Platelet Count 210 10^3/uL (150-450); Red Blood Count 4.17 10^6 /uL (3.70-4.87); Red Cell Distribution Width 12 % (10-15)
[2019-08-17 22:38] LABS: ALT 51 U/L (7-52); AST 66 U/L (13-39); Albumin 4.7 g/dL (3.2-5.2); Albumin/Globulin Ratio 1.6 (1-3); Alkaline Phosphatase 102 U/L (34-104); Anion Gap 11 mmol/L (2-11); BUN/Creatinine Ratio 9.6 (8-20); Blood Urea Nitrogen 7 mg/dL (6-24); CO2 Carbon Dioxide 29 mmol/L (22-32); Calcium 9.5 mg/dL (8.6-10.3); Chloride 101 mmol/L (101-111); EGFR African American 115.7 (>60); EGFR Non-African American 95.6 (>60); Glucose 90 mg/dL (70-100); Potassium 3.5 mmol/L (3.5-5.0); Sodium 141 mmol/L (135-145); Total Protein 7.7 g/dL (6.4-8.9)
[2019-08-17 22:43] LABS: Acetaminophen < 15 mcg/mL; Salicylate < 2.50 mg/dL (<30)
[2019-08-17 22:45] LABS: HCG Pregnancy < 0.60 mIU/mL
[2019-08-17 22:51] LABS: Alcohol 451 mg/dL (<10)
[2019-08-17 22:59] LABS: TSH (Thyroid Stimulating Horm) 0.96 mcIU/mL (0.34-5.60)
[2019-08-17] MEDS ORDERED: NS 0.9% 1000 ML** 1,000 ML IV ONE (22:59)
[2019-08-17] MEDS ORDERED: Ondansetron INJ* 2 MG/ML VIAL IV ONE (22:59)
[2019-08-17] MEDS ORDERED: Pantoprazole IV* 40 MG IV ONE (22:59)
--- NOTE | 2019-08-17 23:17 | ED ---
Substance Abuse/Use - HPI Summary HPI Summary: The patient is a 29 y/o F presenting to [facility] accompanied by her grandmother with a chief complaint of alcohol intoxication since she starting drinking at 1130 today. She reports that she has recently been depressed and stressed about her relationship with her fianc, so she had four beers and a fifth of vodka ( 750ml) today before arriving to "take away the pain on the inside." She states that she drinks daily, usually about 6 beers. She is not in any pain now. LNMP: now. PMHx: anxiety, migraines, ovarian cyst removal. Current every day smoker, daily EtOH, no substance use. Medications reviewed. Allergies noted. - History Of Current Complaint Chief Complaint: EDSubstanceAbuse Stated Complaint: ETOH PER GRANDMOTHER Time Seen by Provider: 08/17/19 22:59 Hx Obtained From: Patient Hx Last Menstrual Period: August 2019 Onset/Duration of Drug/ETOH Abuse: Hours Ingestion History: Type/Name Of Drug - beer, vodka, Amount Ingested - 6 beers, 750ml vodka, Approximate Time Of Ingestion - onset at 1130 today Overdose Characteristics: Oral Timing Of Abuse: Daily Severity Initially: Mild Severity Currently: Moderate Character: Depressed, Other - stressed Aggravating Factor(s): Recent Stress Alleviating Factor(s): Nothing Associated Signs And Symptoms: Intentional Ingestion, Other: - Negative: vomiting - Allergies/Home Medications Allergies/Adverse Reactions: Allergies Allergy/AdvReac Type Severity Reaction Status Date / Time No Known Allergies Allergy Verified 08/17/19 21:08 Home Medications: Home Medications Escitalopram * [Lexapro 10 mg (NF)] 1 tab PO DAILY 08/17/19 [History Confirmed 08/17/19] PMH/Surg Hx/FS Hx/Imm Hx Endocrine/Hematology History: Denies: Hx Diabetes, Hx Thyroid Disease Cardiovascular History: Denies: Hx Hypertension, Hx Pacemaker/ICD Respiratory History: Denies: Hx Asthma, Hx Chronic Obstructive Pulmonary Disease (COPD) GI History: Denies: Hx Ulcer History: Denies: Hx Renal Disease Sensory History: Denies: Hx Hearing Aid Psychiatric History: Reports: Hx Anxiety Denies: Hx Eating Disorder, Hx Panic Disorder - Surgical History Surgical History: Yes Surgery Procedure, Year, and Place: ovarian cyst removal Infectious Disease History: No Infectious Disease History: Denies: Hx Hepatitis, Hx Human Immunodeficiency Virus (HIV), History Other Infectious Disease, Traveled Outside the [place] in Last 30 Days - Family History Known Family History: Positive: Hypertension, Other - anxiety, depression, alcohol abuse - Social History Alcohol Use: Daily Alcohol Amount: 6 beers Hx Substance Use: No Substance Use Type: Reports: None Hx Tobacco Use: Yes Smoking Status (MU): Current Every Day Smoker Type: Cigarettes Amount Used/How Often: 1/2 PPD Review of Systems - ROS Summary Review of Systems Summary: Home Medications Medication Instructions Recorded Confirmed Type Butalb/Acetamin/Caff TAB* 1 tab PO Q6HR PRN 06/26/16 07/16/19 History [Fioricet TAB*] busPIRone TAB* [Buspar TAB*] 10 mg PO DAILY 11/05/17 07/16/19 History Omeprazole 20 mg PO DAILY #14 tab 07/16/19 Rx hydrOXYzine HCL TAB* [Atarax TAB 50 mg PO TID PRN #30 tab 07/16/19 Rx 50 MG *] Escitalopram * [Lexapro 10 mg (NF)] 1 tab PO DAILY 08/17/19 08/17/19 History Negative: Vomiting Positive: Depressed, Other - stressed, alcohol intoxication All Other Systems Reviewed And Are Negative: Yes Physical Exam - Summary Physical Exam Summary: General: Well-developed, Well-nourished female. No acute distress. Obviously intoxicated, slurring words, slow to respond. HEENT: Normocephalic, Atraumatic. Eyes: Conjuctiva normal, PERRL. Ears: TMs within normal limits. Nares: (-) discharge, (-) erythema. Oropharynx: Clear, mucous membranes moist, (-) exudates. Neck: Soft, FROM, (-) lymphadenopathy, (-) thyromegaly, (-) JVD. Cardiovascular: Normal sinus rhythm, (-) murmur. Lungs: Clear to auscultation bilaterally (-) wheezes, (-) rales, (-) rhonchi. Abdomen: Soft, non-tender, non-distended, (-) organomegaly, normal bowel sounds. Back: (-) CVA tenderness Extremities: No edema. Skin: Warm, dry, (-) rash. Neuro: Alert and oriented x3, no focal deficits. Psychiatric: Mood normal, flat affect. Triage Information Reviewed: Yes Vital Signs On Initial Exam: Initial Vitals Temp Pulse Resp BP Pulse Ox 98.5 F 102 16 152/99 99 08/17/19 21:07 08/17/19 21:07 08/17/19 21:07 08/17/19 21:07 08/17/19 21:07 Vital Signs Reviewed: Yes Procedures - Sedation Patient Received Moderate/Deep Sedation with Procedure: No Diagnostics - Vital Signs Vital Signs Temp Pulse Resp BP Pulse Ox 08/17/19 21:07 98.5 F 102 16 152/99 99 - Laboratory Lab Results: Lab Results 08/17/19 08/17/19 08/17/19 Range/Units 22:12 22:12 22:12 WBC 6.0 (3.5-10.8) 10^3/uL RBC 4.17 (3.70-4.87) 10^6 /uL Hgb 14.6 (12.0-16.0) g/dL Hct 43 (35-47) % MCV 103 H (80-97) fL MCH 35 H (27-31) pg MCHC 34 (31-36) g/dL RDW 12 (10-15) % Plt Count 210 (150-450) 10^3/uL MPV 7.3 L (7.4-10.4) fL Neut % (Auto) 51.5 % Lymph % (Auto) 30.6 % [place] % (Auto) 13.1 % Eos % (Auto) 2.6 % Baso % (Auto) 2.2 % Absolute Neuts (auto) 3.1 (1.5-7.7) 10^3/ul Absolute Lymphs (auto) 1.8 (1.0-4.8) 10^3/ul Absolute Monos (auto) 0.8 (0-0.8) 10^3/ul Absolute Eos (auto) 0.2 (0-0.6) 10^3/ul Absolute Basos (auto) 0.1 (0-0.2) 10^3/ul Absolute Nucleated RBC 0.0 10^3/ul Nucleated RBC % 0.1 Sodium 141 (135-145) mmol/L Potassium 3.5 (3.5-5.0) mmol/L Chloride 101 (101-111) mmol/L Carbon Dioxide 29 (22-32) mmol/L Anion Gap 11 (2-11) mmol/L BUN 7 (6-24) mg/dL Creatinine 0.73 (0.51-0.95) mg/dL Est GFR ( Amer) 115.7 (>60) Est GFR (Non-Af Amer) 95.6 (>60) BUN/Creatinine Ratio 9.6 (8-20) Glucose 90 (70-100) mg/dL Lactic Acid 1.5 (0.5-2.0) mmol/L Calcium 9.5 (8.6-10.3) mg/dL Total Bilirubin 0.30 (0.2-1.0) mg/dL AST 66 H (13-39) U/L ALT 51 (7-52) U/L Alkaline Phosphatase 102 (34-104) U/L Total Protein 7.7 (6.4-8.9) g/dL Albumin 4.7 (3.2-5.2) g/dL Globulin 3.0 (2-4) g/dL Albumin/Globulin Ratio 1.6 (1-3) TSH 0.96 (0.34-5.60) mcIU/mL Beta HCG, Quant < 0.60 mIU/mL Salicylates < 2.50 (<30) mg/dL Acetaminophen < 15 mcg/mL Serum Alcohol 451 H* (<10) mg/dL Result Diagrams: 08/17/19 22:12 08/17/19 22:12 Lab Statement: Any lab studies that have been ordered have been reviewed, and results considered in the medical decision making process. - EKG 2153 Cardiac Rate: Tachycardia - 101 BPM EKG Rhythm: Sinus Tachycardia Summary of EKG Findings: EKG at 2153 reveals sinus tachycardia with a rate of 101 BPM. Prolonged QTc interval of 481. This EKG was reviewed and interpreted by Dr. Segal. 0042 Cardiac Rate: NL - 74 BPM EKG Rhythm: Sinus Rhythm Summary of EKG Findings: EKG at 0042 reveals normal sinus rhythm with rate of 74 BPM, no acute changes, no ischemic changes. This EKG was reviewed and interpreted by Dr. Segal. 0425 Cardiac Rate: NL - 71 BPM EKG Rhythm: Sinus Rhythm Summary of EKG Findings: EKG at 0425 reveals normal sinus rhythm with rate of 71 BPM, no acute changes, no ischemic changes. This EKG was reviewed and interpreted by Dr. Segal. Re-Evaluation - Re-Evaluation First Eval Re-Evaluation Time: 00:00 Change: Unchanged Comment: Pt states she has taken more of her SSRI medications than prescribed today. Poison control will be contacted. Course/Dx - Course Course Of Treatment: 29-year-old female with lethargy brought in by family. Patient admits to significant alcohol ingestion today. She initially denies taking any extra medication. However later in the visit she does admit to taking more of her SSRIs than she is supposed to. She states she had stopped taking them previously and took a bunch today. Unknown quantity. Please control contacted repeat EKG done. Patient with significant alcohol intoxication. Referred to hospitalist for 24-hour observation. - Diagnoses Provider Diagnoses: Tobacco use, Alcohol abuse - Physician Notifications Discussed Care Of Patient With: Poison Control Time Discussed With Above Provider: 12:40 Instructed by Provider To: Other - Poison Control states that the patient requires 24-hour observation and a repeat EKG to look for prolonged QTc. They also recommend an ABG. At 0045, Dr. Marcial, hospitalist, accepts the patient for admission to ICU. Discharge ED - Sign-Out/Discharge Documenting (check all that apply): Patient Departure - Patient accepted to ICU by Dr. Marcial. - Discharge Plan Condition: Stable Disposition: ADMITTED TO [facility] Referrals: Dl Guerra PRICING ASSOCIATE [Primary Care Provider] - - Billing Disposition and Condition Condition: STABLE Disposition: Admitted to [facility] - Attestation Statements Document Initiated by Milvia: Yes Documenting Scribe: Francheska Fu Provider For Whom Milvia is Documenting (Include Credential): Dr. Loida Segal MD Scribe Attestation: Francheska Hernandez scribed for Dr. Loida Segal MD on 08/18/19 at 0531. Scribe Documentation Reviewed: Yes Provider Attestation: The documentation as recorded by the Francheska sotelo accurately reflects the service I personally performed and the decisions made by me, Dr. Loida Segal MD Status of Scribe Document: Viewed
[2019-08-18] MEDS ORDERED: NS 0.9% 1000 ML** 1,000 ML IV ONE (00:04)
[2019-08-18 05:22] LABS: Urine Appearance Cloudy; Urine Bacteria 1+ (Absent); Urine Bilirubin Negative (Negative); Urine Blood 1+ (Negative); Urine Color Yellow; Urine Glucose Negative (Negative); Urine Ketones Negative (Negative); Urine Nitrite Negative (Negative); Urine Protein Negative (Negative); Urine Red Blood Cell Trace(0-2/hpf) (Absent); Urine Squamous Epithelial Cell Present (Absent); Urine Urobilinogen Negative (Negative); Urine White Blood Cell Trace(0-5/hpf) (Absent)
[2019-08-18 05:34] LABS: Urine Benzodiazepine Screen Presumptive Positive (None Detect); Urine Opiates Screen None Detected (None Detect)
[2019-08-18] MEDS ORDERED: Thiamine INJ* 100 MG/ML 2 ML VIAL IM ONE (05:37)
[2019-08-18] MEDS ORDERED: Butalb/Acetamin/Caff TAB* 1 TAB PO PRN (05:48)
[2019-08-18] MEDS ORDERED: LORazepam TAB(*) 1 MG PO SCH (06:00)
[2019-08-18] MEDS: hydrOXYzine HCL TAB* 50 MG PO PRN ×2 (06:50→16:37)
[2019-08-18] MEDS: Multivitamins/Minerals TAB PO SCH (08:56)
[2019-08-18] MEDS: Pantoprazole TAB * 40 MG TAB PO SCH (08:56)
[2019-08-18] MEDS: Folic Acid TAB* 1 MG PO SCH (08:56)
[2019-08-18] MEDS: Thiamine TAB* 100 MG TAB PO SCH (08:56)
[2019-08-18] MEDS: Ibuprofen TAB* 600 MG PO PRN ×2 (08:56→23:04)
[2019-08-18] MEDS: Lactated Ringers 1000 ML Bag* 1,000 ML IV SCH ×2 (08:58→16:37)
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
[2019-08-18 10:16] LABS: ABS Eosinophils 0.1 10^3/ul (0-0.6); ABS Lymphocytes 1.2 10^3/ul (1.0-4.8); ABS Monocytes 0.6 10^3/ul (0-0.8); ABS Neutrophils 5.1 10^3/ul (1.5-7.7); Eosinophil % 1.2 %; Hematocrit 35 % (35-47); Hemoglobin 11.7 g/dL (12.0-16.0); Lymphocyte % 16.6 %; Mean Corpuscular HGB Conc 34 g/dL (31-36); Mean Corpuscular Hemoglobin 35 pg (27-31); Mean Corpuscular Volume 103 fL (80-97); Mean Platelet Volume 7.3 fL (7.4-10.4); Platelet Count 165 10^3/uL (150-450); Red Blood Count 3.35 10^6 /uL (3.70-4.87); Red Cell Distribution Width 12 % (10-15)
[2019-08-18 10:33] LABS: BUN/Creatinine Ratio 9.6 (8-20); Calcium 7.7 mg/dL (8.6-10.3); EGFR African American 115.7 (>60); EGFR Non-African American 95.6 (>60); Potassium 3.6 mmol/L (3.5-5.0)
[2019-08-18 13:52] LABS: Magnesium 1.5 mg/dL (1.9-2.7)
[2019-08-18] MEDS ORDERED: Magnesium Sulfate 2 GM IV* 2 GM/50 ML BAG IVPB ONE ×2 (14:15→19:09)
[2019-08-18] MEDS ORDERED: Potassium Chlor TAB* 20 MEQ TAB.ER PO ONE (14:20)
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
[2019-08-18] MEDS: diazePAM INJ* 5 MG/ML 2ML SYRINGE IV PRN ×2 (18:29→22:50)
[2019-08-19] MEDS: Lactated Ringers 1000 ML Bag* 1,000 ML IV SCH ×2 (00:53→08:13)
--- NOTE | 2019-08-19 06:48 | PN ---
Subjective Date of Service: 08/19/19 Interval History: HD 3 on 08/19 No acute overnight events- got 2 doses of diazepam 2.5 mg yesterday; last in 22: 50 VS stable QTc <450 complains of tremor and palpitation has nausea but no vomiting or abdominal pain not scoring enough in WAM Objective Active Medications: Acetaminophen/Butalbital/Caffeine (Fioricet Tab*) 1 tab PO Q6HR PRN PRN Reason: HEADACHE Diazepam (Valium Syringe*) 0 mg IV Q4H PRN; Protocol PRN Reason: ANXIETY Last Admin: 08/18/19 22:50 Dose: 2.5 mg Folic Acid (Folvite Tab*) 1 mg PO DAILY [facility] Last Admin: 08/18/19 08:56 Dose: 1 mg Hydroxyzine HCl (Atarax Tab*) 50 mg PO TID PRN PRN Reason: AGITATION/ANXIETY Last Admin: 08/18/19 16:37 Dose: 50 mg Lactated Ringer's (Lactated Ringers 1000 Ml Bag*) 1,000 mls @ 150 mls/hr IV PER RATE [facility] Last Admin: 08/19/19 00:53 Dose: 150 mls/hr Ibuprofen (Motrin Tab*) 600 mg PO Q6H PRN PRN Reason: PAIN - MILD Last Admin: 08/18/19 23:04 Dose: 600 mg Multivitamins/Minerals (Theragran/Minerals Tab*) 1 tab PO DAILY [facility] Last Admin: 08/18/19 08:56 Dose: 1 tab Pantoprazole Sodium (Protonix Tab*) 40 mg PO DAILY [facility] Last Admin: 08/18/19 08:56 Dose: 40 mg Thiamine HCl (Vitamin B-1 Tab*) 100 mg PO DAILY [facility] Last Admin: 08/18/19 08:56 Dose: 100 mg Vital Signs - 8 hr 08/18/19 08/18/19 08/19/19 22:50 23:07 00:30 Temperature 97.4 F Pulse Rate 66 Respiratory 20 18 18 Rate Blood Pressure (mmHg) O2 Sat by Pulse 97 Oximetry 08/19/19 08/19/19 08/19/19 00:40 02:08 02:09 Temperature Pulse Rate Respiratory Rate Blood Pressure 143/86 114/78 123/75 (mmHg) O2 Sat by Pulse Oximetry 08/19/19 08/19/19 08/19/19 02:22 02:40 04:29 Temperature 97.9 F Pulse Rate 61 Respiratory 18 Rate Blood Pressure 128/72 131/61 (mmHg) O2 Sat by Pulse 98 Oximetry Oxygen Devices in Use Now: None Exam: Patient lying on a bed with no acute distress HEENT: Normocephalic and atraumatic Lungs: clear Heart: S1/S2 heard with no murmur ABdomen: Soft, nodistended and nontender Extremities: fine trmor on both hands Neuro: alert, conscious and oriented Result Diagrams: 08/19/19 06:46 08/19/19 06:46 Additional Lab and Data: Lab Results 08/17/19 08/17/19 08/17/19 Range/Units 22:12 22:12 22:12 WBC 6.0 (3.5-10.8) 10^3/uL RBC 4.17 (3.70-4.87) 10^6 /uL Hgb 14.6 (12.0-16.0) g/dL Hct 43 (35-47) % MCV 103 H (80-97) fL MCH 35 H (27-31) pg MCHC 34 (31-36) g/dL RDW 12 (10-15) % Plt Count 210 (150-450) 10^3/uL MPV 7.3 L (7.4-10.4) fL Neut % (Auto) 51.5 % Lymph % (Auto) 30.6 % [place] % (Auto) 13.1 % Eos % (Auto) 2.6 % Baso % (Auto) 2.2 % Absolute Neuts (auto) 3.1 (1.5-7.7) 10^3/ul Absolute Lymphs (auto) 1.8 (1.0-4.8) 10^3/ul Absolute Monos (auto) 0.8 (0-0.8) 10^3/ul Absolute Eos (auto) 0.2 (0-0.6) 10^3/ul Absolute Basos (auto) 0.1 (0-0.2) 10^3/ul Absolute Nucleated RBC 0.0 10^3/ul Nucleated RBC % 0.1 Sodium 141 (135-145) mmol/L Potassium 3.5 (3.5-5.0) mmol/L Chloride 101 (101-111) mmol/L Carbon Dioxide 29 (22-32) mmol/L Anion Gap 11 (2-11) mmol/L BUN 7 (6-24) mg/dL Creatinine 0.73 (0.51-0.95) mg/dL Est GFR ( Amer) 115.7 (>60) Est GFR (Non-Af Amer) 95.6 (>60) BUN/Creatinine Ratio 9.6 (8-20) Glucose 90 (70-100) mg/dL Lactic Acid 1.5 (0.5-2.0) mmol/L Calcium 9.5 (8.6-10.3) mg/dL Total Bilirubin 0.30 (0.2-1.0) mg/dL AST 66 H (13-39) U/L ALT 51 (7-52) U/L Alkaline Phosphatase 102 (34-104) U/L Total Protein 7.7 (6.4-8.9) g/dL Albumin 4.7 (3.2-5.2) g/dL Globulin 3.0 (2-4) g/dL Albumin/Globulin Ratio 1.6 (1-3) TSH 0.96 (0.34-5.60) mcIU/mL Beta HCG, Quant < 0.60 mIU/mL Salicylates < 2.50 (<30) mg/dL Acetaminophen < 15 mcg/mL Serum Alcohol 451 H* (<10) mg/dL Assess/Plan/Problems-Billing Assessment: 29 y/o F with h/o depression and anxiety presented with intentional ingestion of lexapro and alcohol intoxication. Urine positive for cocaine and benzo. - Patient Problems (1) Suicidal behavior Current Visit: Yes Status: Acute Code(s): R46.89 - OTHER SYMPTOMS AND SIGNS INVOLVING APPEARANCE AND BEHAVIOR SNOMED Code(s): 759599706 Comment: -ingested around 15 pills of lexapro -was recently having issues with her fiance and recently moved to dad's house -because of stress was drinking 4-6 beers/day -no active suicidal ideation at present -QT improving -mag normal (2) Alcohol intoxication Current Visit: Yes Status: Acute Comment: -usually drinks 2-3 beers/day but for 1 month has been drinking 4-6 beers/day -her blood alcohol level was found to have 451 -admits drinking half fifth of vodka -currently having palpitation and tremor but no agitation, nausea, abd pain or hallucination -will keep her on wam protocol- got 2 doses of diazepam yesterday -not scoring enough today to get meds -can be dc home with outpatient rehab appt (3) Substance use disorder Current Visit: Yes Status: Acute Code(s): F19.90 - OTHER PSYCHOACTIVE SUBSTANCE USE, UNSPECIFIED, UNCOMPLICATED SNOMED Code(s): 121827911 Comment: -urine positive for cocaine and benzo -open for outpatient substance abuse rehabilitation (4) Depression Current Visit: Yes Status: Acute Code(s): F32.9 - MAJOR DEPRESSIVE DISORDER , SINGLE EPISODE, UNSPECIFIED SNOMED Code(s): 49078633 Comment: -has history of depression and anxiety -on lexapro and buspar at home -psych consultation doen -recommends holdng meds- stopped lexapro and buspar -had recently started counselling in [facility] -after dc pt has to f/u in [facility] (5) DVT prophylaxis Current Visit: Yes Status: Acute Code(s): Z29.9 - ENCOUNTER FOR PROPHYLACTIC MEASURES, UNSPECIFIED SNOMED Code(s): 756355430 Comment: low risk emcourage ambulation (6) Full code status Current Visit: Yes Status: Acute Code(s): Z78.9 - OTHER SPECIFIED HEALTH STATUS SNOMED Code(s): 663439382 Status and Disposition: Inpatient; psych following Attending: Remberto Stout Attestation Documenting Resident: Elsie Gonzalez Supervising Physician: Remberto Stout Attestation: This service has been performed in part by a resident under the direction of a teaching physician.I, Remberto Stout, performed the service, or was physically present during the critical, or fisher portions of the service, furnished by the resident. I participated in the management of the patient.
[2019-08-19 07:16] LABS: ABS Basophils 0.1 10^3/ul (0-0.2); ABS Eosinophils 0.1 10^3/ul (0-0.6); ABS Lymphocytes 1.3 10^3/ul (1.0-4.8); ABS Monocytes 0.9 10^3/ul (0-0.8); ABS Neutrophils 3.3 10^3/ul (1.5-7.7); Eosinophil % 1.7 %; Hematocrit 36 % (35-47); Hemoglobin 12.1 g/dL (12.0-16.0); Lymphocyte % 22.9 %; Mean Corpuscular HGB Conc 34 g/dL (31-36); Mean Corpuscular Hemoglobin 35 pg (27-31); Mean Corpuscular Volume 103 fL (80-97); Mean Platelet Volume 7.6 fL (7.4-10.4); Nucleated Red Blood Cells % 0.1; Platelet Count 179 10^3/uL (150-450); Red Blood Count 3.45 10^6 /uL (3.70-4.87); Red Cell Distribution Width 12 % (10-15); White Blood Count 5.7 10^3/uL (3.5-10.8)
[2019-08-19 07:35] LABS: Albumin 3.7 g/dL (3.2-5.2); Albumin/Globulin Ratio 1.7 (1-3); BUN/Creatinine Ratio 12.7 (8-20); EGFR African American 137.2 (>60); EGFR Non-African American 113.4 (>60); Globulin 2.2 g/dL (2-4); Potassium 4.1 mmol/L (3.5-5.0); Total Bilirubin 0.7 mg/dL (0.2-1.0); Total Protein 5.9 g/dL (6.4-8.9)
[2019-08-19] MEDS: Ibuprofen TAB* 600 MG PO PRN (08:13)
[2019-08-19] MEDS: Folic Acid TAB* 1 MG PO SCH (08:13)
[2019-08-19] MEDS: Multivitamins/Minerals TAB PO SCH (08:13)
[2019-08-19] MEDS: Pantoprazole TAB * 40 MG TAB PO SCH (08:13)
[2019-08-19] MEDS: Thiamine TAB* 100 MG TAB PO SCH (08:13)
[2019-08-19] MEDS ORDERED: chlordiazePOXIDE CAP* 25 MG PO ONE (13:23)
[2019-08-19 14:37] VITALS: BP 129/84
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
== END 2019-08-19 15:00 | disposition home or self-care (01) ==
LOC: ED 21:06 → MEDTELE 08-18 05:30 → INTOOBSV 08-18 05:30
PROVIDERS: ADMIT Internal Medicine; ATTEND Internal Medicine
DX: T43.222A Poisoning by selective serotonin reuptake inhibitors, intentional self-harm, initial encounter (principal); Y92.9 Unspecified place or not applicable; F10.129 Alcohol abuse with intoxication, unspecified; F19.10 Other psychoactive substance abuse, uncomplicated; Z79.899 Other long term (current) drug therapy; F41.9 Anxiety disorder, unspecified; F17.210 Nicotine dependence, cigarettes, uncomplicated; R46.89 Other symptoms and signs involving appearance and behavior; F32.9 Major depressive disorder, single episode, unspecified; R94.31 Abnormal electrocardiogram [ECG] [EKG]
CPT/HCPCS: 36415; 80048; 80053; 80307; 80320; 80329; 81003; 81015; 83605; 83735; 84443; 84702; 85025; 87086; 87088; 93005; 96361; 96372; 96374; 96375; 96376; 99284; A9270-GY; G0378; G0480; J2405; J3360; J3411; J3475

== ENCOUNTER 2019-11-02 21:36 | Emergency (ER) | payer MEDICAID, OTHER ==
[2019-11-02] MEDS: Naloxone Nasal Spray* 4 MG/0.1 ML NASAL.SPR INTRANASAL ONE ×2 (21:38→21:41)
[2019-11-02] MEDS ORDERED: Naloxone* 0.4 MG/ML 1 ML VIAL IV PUSH ONE (21:47)
--- NOTE | 2019-11-02 21:54 | ED ---
Substance Abuse/Use - HPI Summary HPI Summary: Pt is a 29 y/o F presenting to the ED unresponsive from an overdose. LEVEL 5 CAVEAT: Pts full hx and physical is unobtainable d/t unresponsiveness. She was being brought in by her boyfriend and friend when she was found in the waiting room in a wheelchair apnic and cyanotic. Pt received nasal narcan at 2138 and IV narcan at 2141. Awake at 2143. After waking up, pt states she does not usually use recreational drugs and that she has never done IV drugs. She snorted something a friend gave to her tonight , which she presumes had fentanyl in it. - History Of Current Complaint Chief Complaint: EDOverdose Stated Complaint: OVERDOSE PER PTS BOYFRIEND Time Seen by Provider: 11/02/19 21:36 Hx Obtained From: Patient Hx Last Menstrual Period: August 2019 Onset/Duration of Drug/ETOH Abuse: Hours Overdose Characteristics: Inhalation - nasal Severity Initially: Severe Severity Currently: Severe Character: Other - asleep, not breathing Aggravating Factor(s): Nothing Alleviating Factor(s): Nothing Associated Signs And Symptoms: Shortness Of Breath - Allergies/Home Medications Allergies/Adverse Reactions: Allergies Allergy/AdvReac Type Severity Reaction Status Date / Time No Known Allergies Allergy Verified 08/17/19 21:08 Home Medications: Home Medications Butalbital/Aspirin/Caffeine [Tdgbhd-Fmdfcir-Ugrxg 50-325-40] 1 tab PO Q6HR PRN 11/02/19 [History Confirmed 11/02/19] Omeprazole CAP (NF) [Prilosec CAP* 20 MG] 20 mg PO DAILY 11/02/19 [History Confirmed 11/02/19] busPIRone TAB* [Buspar TAB*] 25 mg PO BID 11/02/19 [History Confirmed 11/02/19] PMH/Surg Hx/FS Hx/Imm Hx Previously Healthy: No Endocrine/Hematology History: Denies: Hx Diabetes, Hx Thyroid Disease Cardiovascular History: Denies: Hx Hypertension, Hx Pacemaker/ICD Respiratory History: Denies: Hx Asthma, Hx Chronic Obstructive Pulmonary Disease (COPD) GI History: Denies: Hx Ulcer History: Denies: Hx Renal Disease Sensory History: Reports: Hx Contacts or Glasses Denies: Hx Hearing Aid Opthamlomology History: Reports: Hx Contacts or Glasses Psychiatric History: Reports: Hx Anxiety, Hx Post Traumatic Stress Disorder, Hx Community Mental Health Tx, Hx Suicide Attempt, Hx Substance Abuse Denies: Hx Attention Deficit Hyperactivity Disorder, Hx Eating Disorder, Hx Panic Disorder, Hx Inpatient Treatment, Hx Schizophrenia, Hx Bipolar Disorder, Hx of Violent Episodes Against Others, Other Psychiatric Issues/Disorders - Surgical History Surgery Procedure, Year, and Place: ovarian cyst removal Infectious Disease History: Unable to Obtain/Confirm Infectious Disease History: Denies: Hx Hepatitis, Hx Human Immunodeficiency Virus (HIV), History Other Infectious Disease, Traveled Outside the [place] in Last 30 Days - Family History Known Family History: Positive: Hypertension, Other - anxiety, depression, alcohol abuse - Social History Alcohol Use: Daily Alcohol Amount: 6 beers Hx Substance Use: No Substance Use Type: Reports: None Hx Tobacco Use: Yes Smoking Status (MU): Current Every Day Smoker Type: Cigarettes Amount Used/How Often: 1/2 PPD Review of Systems - ROS Summary Review of Systems Summary: LEVEL 5 CAVEAT: Pts full hx and physical is unobtainable d/t unresponsiveness. Positive: Shortness Of Breath All Other Systems Reviewed And Are Negative: No Physical Exam - Summary Physical Exam Summary: Exam done after pt regained consciousness/received IV narcan. Appearance: Well-appearing, Well-nourished, lying in bed comfortably Skin: Warm, dry, no obvious rash Eyes: sclera anicteric, no conjunctival pallor ENT: mucous membranes moist, pharynx appears normal Neck: Supple, nontender Respiratory: Clear to auscultation, no signs of respiratory distress Cardiovascular: Normal S1, S2. No murmurs. Normal distal pulses in tibial and radial bilaterally. Abdomen: Soft, nontender, normal active bowel sounds present Musculoskeletal: Normal, Strength/ROM Intact Neurological: A&Ox3, awake and alert, mentation is normal, speech is fluent and appropriate Psychiatric: affect is normal, does not appear anxious or depressed Triage Information Reviewed: Yes Vital Signs On Initial Exam: Initial Vitals Temp Pulse Resp BP Pulse Ox 0 F 0 0 0/0 0 11/02/19 21:40 11/02/19 21:40 11/02/19 21:40 11/02/19 21:40 11/02/19 21:40 Vital Signs Reviewed: Yes Completion Of Physical Exam Limited Due To: Level 5 Procedures - Sedation Patient Received Moderate/Deep Sedation with Procedure: No Diagnostics - Vital Signs Vital Signs Temp Pulse Resp BP Pulse Ox 11/02/19 21:40 0 F 0 0 0/0 0 - Laboratory Lab Statement: Any lab studies that have been ordered have been reviewed, and results considered in the medical decision making process. Course/Dx - Course Course Of Treatment: 29 y/o F found by me in waiting room in a wheelchair brought in by her boyfriend apnic and cyanotic. I immediately wheeled her to the resuscitation room in the ED. LEVEL 5 CAVEAT: Full hx unobtainable d/t overdose. Pt received nasal narcan at 2137 and IV narcan at 2140. Awake at 2142. After waking up, pt states she does not usually use recreational drugs and that she has never done IV drugs. She snorted something a friend gave to her tonight, which she presumes had fentanyl in it. Pt's physical exam after waking up from being given Narcan is nml. Pt monitored while in the ED. She is stable for d/c. D/c dx opioid overdose. - Diagnoses Provider Diagnoses: Opioid overdose Discharge ED - Sign-Out/Discharge Documenting (check all that apply): Patient Departure - Discharge Plan Condition: Improved Disposition: HOME Prescriptions: Naloxone HCl [Evzio] 2 mg IM ONCE PRN #2 auto.injct PRN Reason: overdose of opioid Patient Education Materials: Opioid Safety (ED) Referrals: [facility] [Outside] Dl Guerra NP [Primary Care Provider] - Additional Instructions: Opioids are very dangerous, and addiction is a very complicated issue. What is not complicated, though, is safety if you choose to use opioids. Make sure to use with others who are not using, and have narcan available if you accidentally do overdose. It can be lifesaving! - Billing Disposition and Condition Condition: IMPROVED Disposition: Home - Attestation Statements Document Initiated by Scribe: Yes Documenting Scribe: Diana Lawson Provider For Whom Milvia is Documenting (Include Credential): Beck Zapata MD. Scribe Attestation: Diana Hernandez scribed for Beck Zapata MD. on 11/04/19 at 0533. Scribe Documentation Reviewed: Yes Provider Attestation: The documentation as recorded by the scribeDiana accurately reflects the service I personally performed and the decisions made by me, Beck Zapata MD. Status of Scribe Document: Viewed
[2019-11-03 00:28] VITALS: BP 126/86
== END 2019-11-03 00:29 | disposition home or self-care (01) ==
LOC: ED 21:36
DX: T40.2X1A Poisoning by other opioids, accidental (unintentional), initial encounter (principal); R06.02 Shortness of breath; Y92.9 Unspecified place or not applicable; F17.210 Nicotine dependence, cigarettes, uncomplicated; Z79.899 Other long term (current) drug therapy; F41.9 Anxiety disorder, unspecified; F43.10 Post-traumatic stress disorder, unspecified
CPT/HCPCS: 96374; 99285

== ENCOUNTER 2019-12-08 22:09 | Observation (INO) | payer OTHER ==
[2019-12-08] MEDS ORDERED: NS 0.9% 1000 ML** 1,000 ML IV ONE (22:35)
--- NOTE | 2019-12-08 22:36 | ED ---
Substance Abuse/Use - HPI Summary HPI Summary: Patient brought by her stepmother for chronic EtOH abuse, possible crack cocaine use, erratic behavior, aggression towards parents. Patient herself complains of palpitations, epigastric pain, persistent nausea and vomiting with by mouth intake 4 days. No pain in between meals. History of ulcers. Patient does admit to persistent EtOH consumption "a couple of beers a day" over the past week, but admits to drinking a quarter bottle of vodka today. Occasional fentanyl and heroin IV drug use. Patient denies crack cocaine use. Patient denies SI, HI, fever, cough, sore throat, CP, SOB, diarrhea, change in urine, change in BM, vaginal symptoms. Medical history is anxiety, depression, HTN. Prior history of ulcers. Positive smoker. - History Of Current Complaint Chief Complaint: EDSubstanceAbuse Stated Complaint: ETOH Time Seen by Provider: 12/08/19 22:24 Hx Obtained From: Patient Hx Last Menstrual Period: August 2019 Onset/Duration of Drug/ETOH Abuse: Days Overdose Characteristics: Oral, IV Timing Of Abuse: Daily Severity Initially: Moderate Severity Currently: Moderate Aggravating Factor(s): Nothing Alleviating Factor(s): Nothing Associated Signs And Symptoms: Palpitations, Nausea, Vomiting - Allergies/Home Medications Allergies/Adverse Reactions: Allergies Allergy/AdvReac Type Severity Reaction Status Date / Time No Known Allergies Allergy Verified 08/17/19 21:08 Home Medications: Home Medications Butalbital/Aspirin/Caffeine [Mizoob-Oxjfjtf-Datfh 50-325-40] 1 tab PO Q6HR PRN 11/02/19 [History Confirmed 11/02/19] Naloxone HCl [Evzio] 2 mg IM ONCE PRN #2 auto.injct 11/02/19 [Rx] Omeprazole CAP (NF) [Prilosec CAP* 20 MG] 20 mg PO DAILY 11/02/19 [History Confirmed 11/02/19] busPIRone TAB* [Buspar TAB*] 25 mg PO BID 11/02/19 [History Confirmed 11/02/19] PMH/Surg Hx/FS Hx/Imm Hx Endocrine/Hematology History: Denies: Hx Diabetes, Hx Thyroid Disease Cardiovascular History: Denies: Hx Hypertension, Hx Pacemaker/ICD Respiratory History: Denies: Hx Asthma, Hx Chronic Obstructive Pulmonary Disease (COPD) GI History: Denies: Hx Ulcer History: Denies: Hx Renal Disease Sensory History: Reports: Hx Contacts or Glasses Denies: Hx Hearing Aid Opthamlomology History: Reports: Hx Contacts or Glasses EENT History: Denies: Hx Deafness Psychiatric History: Reports: Hx Anxiety, Hx Post Traumatic Stress Disorder, Hx Community Mental Health Tx, Hx Suicide Attempt, Hx Substance Abuse Denies: Hx Attention Deficit Hyperactivity Disorder, Hx Eating Disorder, Hx Panic Disorder, Hx Inpatient Treatment, Hx Schizophrenia, Hx Bipolar Disorder, Hx of Violent Episodes Against Others, Other Psychiatric Issues/Disorders - Surgical History Surgery Procedure, Year, and Place: ovarian cyst removal Infectious Disease History: No Infectious Disease History: Denies: Hx Hepatitis, Hx Human Immunodeficiency Virus (HIV), History Other Infectious Disease, Traveled Outside the [place] in Last 30 Days - Family History Known Family History: Positive: Hypertension, Other - anxiety, depression, alcohol abuse - Social History Alcohol Use: Daily Alcohol Amount: 6 beers Hx Substance Use: No Substance Use Type: Reports: None, Heroin, Synthetic Drugs Substance Use Comment - Amount & Last Used: Fentanyl Hx Tobacco Use: Yes Smoking Status (MU): Current Every Day Smoker Type: Cigarettes Amount Used/How Often: 1/2 PPD Review of Systems Constitutional: Negative Eyes: Negative ENT: Negative Cardiovascular: Negative Respiratory: Negative Positive: Abdominal Pain, Vomiting, Nausea Genitourinary: Negative Musculoskeletal: Negative Skin: Negative Neurological/Mental Status: Negative Psychological: Normal All Other Systems Reviewed And Are Negative: Yes Physical Exam - Summary Physical Exam Summary: Abdomen mildly tender diffusely. No evidence of tremors, diaphoresis, agitation , hallucinations. Triage Information Reviewed: Yes Vital Signs On Initial Exam: Initial Vitals Temp Pulse Resp BP Pulse Ox 96.9 F 112 16 124/94 100 12/08/19 22:12 12/08/19 22:12 12/08/19 22:12 12/08/19 22:12 12/08/19 22:12 Vital Signs Reviewed: Yes Appearance: Positive: Well-Appearing Skin: Positive: Warm Head/Face: Positive: Normal Head/Face Inspection Eyes: Positive: Normal Neck: Positive: Supple Respiratory/Lung Sounds: Positive: Clear to Auscultation Cardiovascular: Positive: Normal Abdomen Description: Positive: Other: Musculoskeletal: Positive: Normal Neurological: Positive: Normal Psychiatric: Positive: Normal AVPU Assessment: Alert - Lisa Coma Scale Best Eye Response: 4 - Spontaneous Best Motor Response: 6 - Obeys Commands Best Verbal Response: 5 - Oriented Coma Scale Total: 15 Procedures - Sedation Patient Received Moderate/Deep Sedation with Procedure: No Diagnostics - Vital Signs Vital Signs Temp Pulse Resp BP Pulse Ox 12/08/19 22:12 96.9 F 112 16 124/94 100 - Laboratory Result Diagrams: 12/09/19 03:17 12/09/19 17:06 Lab Statement: Any lab studies that have been ordered have been reviewed, and results considered in the medical decision making process. Course/Dx - Course Course Of Treatment: Patient brought by her stepmother for chronic EtOH abuse, possible crack cocaine use, erratic behavior, aggression towards parents. Patient herself complains of palpitations, epigastric pain, persistent nausea and vomiting with by mouth intake 4 days. No pain in between meals. History of ulcers. Patient does admit to persistent EtOH consumption "a couple of beers a day" over the past week, but admits to drinking a quarter bottle of vodka today. Occasional fentanyl and heroin IV drug use. Patient denies crack cocaine use. Patient denies SI, HI, fever, cough, sore throat, CP, SOB, diarrhea, change in urine, change in BM, vaginal symptoms. Medical history is anxiety, depression, HTN. Prior history of ulcers. Positive smoker. Vital signs within normal limits. WBC 15.8. Potassium 2.3. Lactic 3.5. CO2 45. Bili 1.1. AST 64. ALT 55. Alkaline phosphatase 136. Labs otherwise within normal limits. GI symptoms improved with GI cocktail. Admitted to hospitalist. - Diagnoses Provider Diagnoses: ETOH abuse, Alcoholic gastritis, Alcoholic ketoacidosis Discharge ED - Sign-Out/Discharge Documenting (check all that apply): Patient Departure - Discharge Plan Condition: Stable Disposition: ADMITTED TO [facility] - Billing Disposition and Condition Condition: STABLE Disposition: Admitted to [facility]
[2019-12-08] MEDS ORDERED: Lidocaine 2% VISCOUS* 15 ML UDC PO ONE (23:10)
[2019-12-08] MEDS ORDERED: Ondansetron INJ* 2 MG/ML VIAL IV ONE (23:10)
[2019-12-08] MEDS ORDERED: Al Hydrox/Mg Hydrox/Simet LIQ* 30 ML UDC PO ONE (23:11)
[2019-12-08 23:53] LABS: ALT 55 U/L (7-52); AST 64 U/L (13-39); Albumin 4.6 g/dL (3.2-5.2); Albumin/Globulin Ratio 1.4 (1-3); Alkaline Phosphatase 136 U/L (34-104); BUN/Creatinine Ratio 8.5 (8-20); Blood Urea Nitrogen 7 mg/dL (6-24); Calcium 10.1 mg/dL (8.6-10.3); Chloride 62 mmol/L (101-111); EGFR African American 101.2 (>60); EGFR Non-African American 83.6 (>60); Globulin 3.2 g/dL (2-4); Glucose 91 mg/dL (70-100); Potassium 2.8 mmol/L (3.5-5.0); Sodium 123 mmol/L (135-145); Total Protein 7.8 g/dL (6.4-8.9)
[2019-12-08] MEDS ORDERED: Potassium Chlor TAB* 20 MEQ TAB.ER PO ONE (23:54)
[2019-12-09 00:05] LABS: ABS Lymphocytes 1.4 10^3/ul (1.0-4.8); ABS Monocytes 1.2 10^3/ul (0-0.8); ABS Neutrophils 13.2 10^3/ul (1.5-7.7); Hematocrit 47 % (35-47); Hemoglobin 16.6 g/dL (12.0-16.0); Lymphocyte % 8.6 %; Mean Corpuscular HGB Conc 36 g/dL (31-36); Mean Corpuscular Hemoglobin 36 pg (27-31); Mean Corpuscular Volume 100 fL (80-97); Mean Platelet Volume 8.1 fL (7.4-10.4); Nucleated Red Blood Cells % 0.1; Platelet Count 252 10^3/uL (150-450); Red Blood Count 4.65 10^6 /uL (3.70-4.87); Red Cell Distribution Width 12 % (10-15); White Blood Count 15.8 10^3/uL (3.5-10.8)
[2019-12-09] MEDS ORDERED: NS 0.9% 1000 ML** 1,000 ML IV ONE ×2 (00:11→07:25)
[2019-12-09 00:22] LABS: CO2 Carbon Dioxide 46 mmol/L (22-32)
[2019-12-09 00:33] LABS: Amylase 11 U/L (29-103)
[2019-12-09 00:48] LABS: Alcohol 305 mg/dL (<10)
[2019-12-09 01:02] LABS: TSH (Thyroid Stimulating Horm) 0.56 mcIU/mL (0.34-5.60)
[2019-12-09 01:27] LABS: Urine Appearance Cloudy; Urine Bilirubin Negative (Negative); Urine Blood Negative (Negative); Urine Color Yellow; Urine Glucose Negative (Negative); Urine Ketones Negative (Negative); Urine Nitrite Negative (Negative); Urine Protein Negative (Negative); Urine Specific Gravity 1.002 (1.010-1.030); Urine Urobilinogen Negative (Negative)
[2019-12-09 01:31] LABS: Urine Bacteria Absent (Absent); Urine Red Blood Cell Absent (Absent); Urine Squamous Epithelial Cell Present (Absent); Urine White Blood Cell Absent (Absent)
[2019-12-09 01:46] LABS: Urine Benzodiazepine Screen None Detected (None Detect); Urine Opiates Screen Presumptive Positive (None Detect)
[2019-12-09] MEDS ORDERED: Pantoprazole IV* 40 MG IV ONE (02:01)
[2019-12-09] MEDS ORDERED: NS 0.9% 1000 ML** 1,500 ML IV ONE (02:29)
[2019-12-09] MEDS ORDERED: Vancomycin(*) 1,000 MG in NS 0.9% 250 ML* 250 ML IVPB ONE ×2 (02:29→02:50)
[2019-12-09] MEDS ORDERED: NS 0.9% 250 ML* 250 ML ONE (02:42)
[2019-12-09] MEDS ORDERED: Acetaminophen TAB* 325 MG PO PRN (02:48)
[2019-12-09] MEDS ORDERED: Thiamine INJ* 100 MG/ML 2 ML VIAL IM ONE (02:48)
[2019-12-09] MEDS ORDERED: PROCHLORPERAZINE INJ 5 MG/ML 2 ML VIAL IV PRN (02:49)
[2019-12-09 03:27] LABS: ABS Lymphocytes 1.1 10^3/ul (1.0-4.8); ABS Monocytes 0.9 10^3/ul (0-0.8); ABS Neutrophils 10.2 10^3/ul (1.5-7.7); Eosinophil % 0.1 %; Hematocrit 44 % (35-47); Hemoglobin 15.5 g/dL (12.0-16.0); Lymphocyte % 9.1 %; Mean Corpuscular HGB Conc 35 g/dL (31-36); Mean Corpuscular Hemoglobin 35 pg (27-31); Mean Corpuscular Volume 100 fL (80-97); Platelet Count 221 10^3/uL (150-450); Red Blood Count 4.39 10^6 /uL (3.70-4.87); Red Cell Distribution Width 13 % (10-15); White Blood Count 12.3 10^3/uL (3.5-10.8)
[2019-12-09 03:43] LABS: Albumin 4.2 g/dL (3.2-5.2); Albumin/Globulin Ratio 1.3 (1-3); BUN/Creatinine Ratio 6.3 (8-20); Calcium 8.8 mg/dL (8.6-10.3); EGFR African American 104.1 (>60); Globulin 3.2 g/dL (2-4); Total Protein 7.4 g/dL (6.4-8.9)
[2019-12-09 03:52] LABS: Potassium 2.3 mmol/L (3.5-5.0)
[2019-12-09] MEDS ORDERED: Cefepime 1 GM in Dextrose(*) 1 GM/50 ML BAG IV SCH (04:00)
--- NOTE | 2019-12-09 04:08 | PN ---
Sepsis Event Evaluation Date of Evaluation: 12/09/19 Time of Evaluation: 03:57 Current Stage of Sepsis: Severe Sepsis Vital Signs - Last 12 Hours: Vital Signs - 12 hr Temp Pulse Resp BP Pulse Ox 12/09/19 03:32 90 21 104/66 98 12/09/19 03:00 85 13 99 12/09/19 02:32 99 23 109/65 95 12/09/19 02:02 21 122/70 12/09/19 02:00 96 48 96 12/09/19 01:33 100 18 121/64 94 12/09/19 01:02 90 17 136/81 93 12/09/19 01:00 98 23 90 12/09/19 00:32 95 17 126/72 96 12/09/19 00:02 89 20 119/73 90 12/09/19 00:00 30 12/08/19 23:33 96 14 120/72 96 12/08/19 23:18 91 12 96 12/08/19 23:03 102 16 126/73 99 12/08/19 23:00 105 24 100 12/08/19 22:33 93 141/84 98 12/08/19 22:32 90 96 12/08/19 22:12 96.9 F 112 16 124/94 100 Lactic Acid: 12/08/19 12/09/19 23:25 03:17 Lactic Acid 3.5 H* 2.0 - Cardiopulmonary Exam Capillary Refill: Immediate Respiratory: Symmetrical Chest Expansion and Respiratory Effort, Clear to Auscultation Cardiovascular: NL Sounds; No Murmurs; No JVD, RRR - Peripheral Pulse Exam Radial Pulses: Bilateral Normal - Skin Exam Skin Exam: Normal Turgor - [place] Coma Scale Best Eye Response: 4 - Spontaneous Best Motor Response: 6 - Obeys Commands Best Verbal Response: 5 - Oriented Coma Scale Total: 15 Assess/Plan/Problems-Billing Assessment: Ms Crain is a 29yo F with PMH of PSA, presented with epigastric pain, N/V, likely secondary to alcoholic gastritis. No obvious source of infection at this time. Suspect her metabolic alkalosis is secondary to her recurrent vomiting. Will continue to monitor.
[2019-12-09] MEDS: Ibuprofen TAB* 600 MG PO PRN ×2 (04:58→15:08)
[2019-12-09] MEDS ORDERED: hydrOXYzine HCL TAB* 25 MG PO ONE ×2 (05:09→20:31)
[2019-12-09] MEDS: LORazepam TAB(*) 1 MG PO SCH ×4 (05:23→21:15)
[2019-12-09] MEDS: KCL 10 MEQ/50 ML IVPREMIX* 10 MEQ/50 ML BAG IV SCH ×4 (05:24→16:11)
--- NOTE | 2019-12-09 05:30 | HP ---
CC: Dl Guerra NP HISTORY AND PHYSICAL: DATE OF ADMISSION: 12/09/19 TIME OF EVALUATION: 2:20 a.m. PRIMARY CARE PROVIDER: Dl Guerra NP CHIEF COMPLAINT: "My belly hurts." HISTORY OF PRESENT ILLNESS: Ms. Crain is a 29-year-old female with a past medical history of polysu bstance abuse, anxiety, migraines, admission to [facility] in August 2019 for intentional Lexapro overdose who presented to the emergency room with complaints of abdominal pain, nausea, vomiting, and palpita tions. The patient states that last week she thought she had a "GI bug." She states her boyfriend was barby bray abdominal pain, nausea, and vomiting and she developed the same symptoms. She thinks she had a fev er, although not measured associated with some chills and loose stools. Over the weekend, she though t she was "getting over it" but today, she started to have the same symptoms of epigastric pain assoc iated with nausea and recurrent vomiting to the point that she could not "keep anything down," reason why she presented to the emergency room for further evaluation. She denies chest pain, but states that she could "feel her heart beat strong," although it was not fa st. In the emergency room, the patient was still symptomatic and for that reason, the hospitalist service was consulted for admission. The patient denies urinary complaints, diarrhea. She thinks that her last drink was on 12/08/19. Sh glendy also injected heroin on that same day. She states that she used a site on her left arm and denied injecting in any other places. She did not notice any edema, erythema, abscess, or other lesions on her skin. PAST MEDICAL HISTORY: 1. Polysubstance abuse. 2. Anxiety. 3. Migraines. 4. Admission to [facility] in August 2019 for an intentional Lexapro overdose. MEDICATION LIST: The patient states that she was taking BuSpar as outpatient, but she has not seen h er primary care provider after her discharge from [facility], so we will need to confirm her medication list in the morning. ALLERGIES: No known drug allergies. FAMILY HISTORY: Father is 51, has a history of depression. Mother is 68, has history of depression and high blood pressure. SOCIAL HISTORY: The patient is a smoker a pack a day for 10 years. She states that she drinks daily , but it may vary. She states that yesterday she had 3 beers, couple shots of vodka and 2 Twisted Te as. She states that she usually drinks less than that, but drinks daily. She also described smoking marijuana as well as cocaine and heroin. She states that in the past she injected fentanyl and the day prior to admission, she injected heroin. She states that she may use drugs every week, but episo mary of IV injection are usually once a month. The patient works at [employer]. Surrogate decision maker is Hudson Jaime, phone number [phone]. REVIEW OF SYSTEMS: A 14-point review of systems was performed and all the pertinent negatives and po sitive findings are in the HPI. PHYSICAL EXAMINATION GENERAL: The patient is a young lady with disheveled appearance, lying on the ED stretcher, in no ac josh distress. VITAL SIGNS: Temperature 96.9, heart rate is 88, respiratory rate is 21, oxygen saturation 96% on ro om air, blood pressure is 122/70. HEENT: Pupils are equal. Moist mucous membranes. CHEST: Breath sounds bilaterally with no added sounds. CVS: Normal S1, S2. Regular rate and rhythm. ABDOMEN: Soft with mild epigastric tenderness. No guarding. No rebound. Bowel sounds are present. EXTREMITIES: The patient has many puncture mahajan on her left antecubital fossa, but some of those we re done in the hospital. I do not see any signs of phlebitis or purulence. NEURO: She is alert and oriented x3. Able to move all 4 extremities. Face is symmetric. Speech is clear. SKIN: There are multiple tattoos, but no rash. DIAGNOSTIC STUDIES/LAB DATA: The patient had a CBC that showed WBC of 15.8, hemoglobin 16.6, hemato crit of 47, MCV 100, MCH 36, platelets of 252 with 83% neutrophils. Chemistry showed a sodium 123, p otassium was 2.8, chloride of 62, bicarb of 46, BUN of 7, creatinine of 0.82, glucose of 91. Lactic acid is 3.5. Calcium is 10.1. Magnesium is 2. LFTs showed total bilirubin of 1.1, AST of 64, ALT of 55, alk phos of 136. Amylase is 11, lipase is 10. TSH 0.56. CRP is 6.6. Urinalysis showed trace LE. U-tox was positive for opiates and serum alcohol level was 305. EKG done on 12/08/19 at 10:18 p.m. showed sinus rhythm at 93 beats per minute with no acute ischemic changes when compared to her prior EKG from August 2019 other than she continues to have QT prolong ation with a QTc of 590. ASSESSMENT AND PLAN: Ms. Crain is a 29-year-old female with a past medical history of polysubstance abuse, anxiety, migraines who presented to the emergency room with complaints of epigastric pain, na usea, vomiting, found to be dehydrated. 1. Systemic inflammatory response syndrome. The patient meets SIRS criteria with tachycardia and ilan kocytosis. It has been clear to me if this is just a stress reaction or if this is associated with a ny infection. She did have GI symptoms last week, but her symptoms this time appear to be more relat ed to alcoholic gastritis associated with her excessive alcohol intake. She does endorse IV drug use, but I do not see any signs of soft tissue infection and with her CRP of 6.6, it is unlikely that she has an infection. In any case, as the patient has a lactic acid of 3.5, this could represent severe sepsis of an undeclared source, so for now, the patient will have blood cultures, serial lactic acid levels, and I will start empirically on vancomycin with cefepime. If her cultures are negative, the antibiotics can be discontinued shortly. 2. Alcoholic gastritis/dehydration. I believe her major issue is her excessive alcohol intake causin g recurrent nausea and vomiting and severe dehydration with electrolyte imbalances. We will continue IV hydration. Repeat electrolytes as necessary. The patient will receive PPI and symptomatic treatme nt. 3. Alcohol abuse. The patient's alcohol level is 305 and she will be started on WA protocol. 4. Polysubstance abuse. The patient states that her opiate use is sporadic. In any case, we will co ntinue to monitor and she may benefit if interested in going to outpatient rehab on discharge. 5. QT prolongation. The patient is not sure what medication she is taking at this time. She did hav e complaints of palpitations and she does have electrolyte imbalances. She will be monitored on tele metry. We will repeat her electrolytes and repeat serial EKGs to monitor her QT interval. 6. Tobacco use. The patient received education about tobacco cessation and she will have nicotine pa tch available. 7. DVT prophylaxis: The patient has a score of 0 on the DVT Prophylaxis Assessment Guide and she wi ll have SCDs while in bed. 8. Code status is full. TIME SPENT: Approximately 60 minutes was spent with the patient interview, medical records review, p hysical examination to complete this admission, more than half of this time was spent [id number] wi th the patient and coordination of care. [id number]/[facility] #: [id number]
[2019-12-09] MEDS: Thiamine TAB* 100 MG TAB PO SCH (08:02)
[2019-12-09] MEDS: Multivitamins/Minerals TAB PO SCH (08:02)
[2019-12-09] MEDS: Pantoprazole TAB * 40 MG TAB PO SCH (08:02)
[2019-12-09] MEDS: Folic Acid TAB* 1 MG PO SCH (08:02)
[2019-12-09] MEDS: Nicotine PATCH 21 MG/24 HR* PATCH TRANSDERM SCH (08:03)
[2019-12-09] MEDS: Cefepime 1 GM in Dextrose(*) 1 GM/50 ML BAG IV SCH ×2 (08:07→20:21)
--- NOTE | 2019-12-09 09:53 | PN ---
Subjective Date of Service: 12/09/19 Interval History: Patient had no nausea or vomiting since coming in last night. No fever or chills. She bad two episodes of diarrhea yesterday, also had cough for 1 week. She didn't really eat since last Sat as she can't keep food down. She was very sleepy this morning and she dozed off multiple times during the conversation. Father showed up this morning, he was concerned about her daughter's condition, as it has been the third time in the past 1 month she had similar things happening. Patient doesn't want providers to share information with her father at this moment. Objective Active Medications: Acetaminophen (Tylenol Tab*) 650 mg PO Q4H PRN PRN Reason: MILD PAIN or TEMP > 100.4 Last Admin: 12/09/19 03:35 Dose: 650 mg Folic Acid (Folvite Tab*) 1 mg PO DAILY [facility] Last Admin: 12/09/19 08:02 Dose: 1 mg Cefepime HCl (Maxipime 1 Gm In Dextrose Duplex (*)) 1 gm in 50 mls @ 100 mls/ hr IV Q12H [facility] Last Admin: 12/09/19 08:07 Dose: 100 mls/hr Ibuprofen (Motrin Tab*) 600 mg PO Q6H PRN PRN Reason: PAIN - MODERATE Last Admin: 12/09/19 04:58 Dose: 600 mg Lorazepam (Ativan Tab(*)) 0 - 6 mg PO .PER [facility] PROTOCOL [facility]; Protocol Last Admin: 12/09/19 05:23 Dose: 2 mg Multivitamins/Minerals (Theragran/Minerals Tab*) 1 tab PO DAILY [facility] Last Admin: 12/09/19 08:02 Dose: 1 tab Nicotine (Nicotine Patch 21 Mg/24 Hr*) 1 patch TRANSDERM DAILY@0800 [facility] Last Admin: 12/09/19 08:03 Dose: 1 patch Ondansetron HCl (Zofran Inj*) 4 mg IV Q6H PRN PRN Reason: NAUSEA Pantoprazole Sodium (Protonix Tab*) 40 mg PO DAILY [facility] Last Admin: 12/09/19 08:02 Dose: 40 mg Pharmacy Profile Note (Nicotine Patch Removal Note*) 1 note FOLLOW UP 2100 [facility] Thiamine HCl (Vitamin B-1 Tab*) 100 mg PO DAILY [facility] Last Admin: 12/09/19 08:02 Dose: 100 mg Vital Signs - 8 hr 12/09/19 12/09/19 12/09/19 02:00 02:02 02:32 Temperature Pulse Rate 96 99 Respiratory 48 21 23 Rate Blood Pressure 122/70 109/65 (mmHg) O2 Sat by Pulse 96 95 Oximetry 12/09/19 12/09/19 12/09/19 03:00 03:32 04:21 Temperature 98.2 F Pulse Rate 85 90 92 Respiratory 13 21 16 Rate Blood Pressure 104/66 104/52 (mmHg) O2 Sat by Pulse 99 98 95 Oximetry 12/09/19 12/09/19 12/09/19 04:40 05:23 07:51 Temperature 98.2 F Pulse Rate 82 Respiratory 16 16 18 Rate Blood Pressure 110/54 (mmHg) O2 Sat by Pulse 100 Oximetry Oxygen Devices in Use Now: None Exam: Patient is sitting on the bed with no acute distress, sleepy looking. HEENT: Normocephalic and atraumatic Lungs: clear with no added sounds Heart: S1/S2 heard with no murmur Abdomen: soft, nontender and nondistended Extremities: No swelling. Left arm medial cephalic vein injection asher seen, no erythema. Anal: right buttock 6cm area of erythema with central Neuro: Alert, oriented x 5, cooperative. Result Diagrams: 12/09/19 03:17 12/09/19 17:06 Assess/Plan/Problems-Billing Assessment: Ms Crain is a 29yo F with PMH of polysubstance abuse, anxiety, migraine, presented with nausea and vomiting for 1 week duration in the setting of alcohol , iv heroin abuse. She was found to have electrolytes disturbances including hyponatremia, hypokalemia, hypocholeremia; also she was found to have leukocytosis which could be related to folliculitis in her buttock, but we need to rule out systemic infection with her iv drug use. - Patient Problems (1) Nausea & vomiting Current Visit: Yes Status: Acute Code(s): R11.2 - NAUSEA WITH VOMITING, UNSPECIFIED SNOMED Code(s): 22283053 Comment: - nausea &vomiting in the setting of polysubstance use as well as recent viral gastroenteritis - no more nausea or vomiting since admission - could be due to alcoholic gastritis - iv fluid, replace electrolytes as seen below (2) Electrolyte disturbance Current Visit: Yes Status: Acute Code(s): E87.8 - OTH DISORDERS OF ELECTROLYTE AND FLUID BALANCE, NEC SNOMED Code(s): 439651473 Comment: - replace K today with IV KCL, monitor BMP and ECG closely - iv fluid (3) SIRS (systemic inflammatory response syndrome) Current Visit: Yes Status: Acute Code(s): R65.10 - SIRS OF NON-INFECTIOUS ORIGIN W/O ACUTE ORGAN DYSFUNCTION SNOMED Code(s): 823848265 Comment: - meets SIRS criteria on admission with leukocytosis and tachycardia - likely due to foliculitis or cellulitis in her buttock - US today showing no abscess, only edema seen - will continue iv cefepime and vancomycin for now in view of her iv drug use history, though no signs of systemic infection at this moment. (4) Alcohol intoxication Current Visit: No Status: Acute Comment: - WA protocol - currently score 0, will monitor closely - trasaminitis likely due to alcohol hepatitis (5) Depression Current Visit: No Status: Acute Code(s): F32.9 - MAJOR DEPRESSIVE DISORDER, SINGLE EPISODE, UNSPECIFIED SNOMED Code(s): 75883465 Comment: -has history of depression and anxiety -on buspar at home - no suicidal ideation - follow up with [facility] after discharge (6) Substance use disorder Current Visit: No Status: Acute Code(s): F19.90 - OTHER PSYCHOACTIVE SUBSTANCE USE, UNSPECIFIED, UNCOMPLICATED SNOMED Code(s): 258193711 Comment: -urine positive for opioid and alcohol -[facility] followup outpt (7) DVT prophylaxis Current Visit: No Status: Acute Code(s): Z29.9 - ENCOUNTER FOR PROPHYLACTIC MEASURES, UNSPECIFIED SNOMED Code(s): 450994447 Comment: low risk emcourage ambulation Status and Disposition: Inpatient Medicine. [facility] follow up after discharge Attestation Documenting Resident: Amaya Taylor Supervising Physician: Remberto Stout Attending/Supervising Physician Comment: Agree with plan as outlined in Dr. Taylor's note from today unless indicated. N/V - suspect viral originally in setting of others with same symptoms possibily exacerbated by withdrawal in setting of inability to tolerate same quantities of etoH Sepsis - no source identified except small buttocks cellulitis. Suspect wbc reactive to virus or stress of withdrawal. Continue abx and await negative cultures Electrolytes - NS, potassium, trend QTC prolongation- hold prolonging meds. repeat EKG in AM Attestation: This service has been performed in part by a resident under the direction of a teaching physician.I, Remberto Stout, performed the service, or was physically present during the critical, or fisher portions of the service, furnished by the resident. I participated in the management of the patient.
[2019-12-09] MEDS ORDERED: KCL 10 MEQ/50 ML IVPREMIX* 10 MEQ/50 ML BAG ONE ×2 (11:33→14:55)
[2019-12-09 11:53] LABS: BUN/Creatinine Ratio 7.6 (8-20); Calcium 7.9 mg/dL (8.6-10.3); EGFR Non-African American 107.4 (>60); Potassium 2.8 mmol/L (3.5-5.0)
[2019-12-09] MEDS ORDERED: NS 0.9% 1000 ML** 1,000 ML IV SCH (13:30)
[2019-12-09 13:48] LABS: Magnesium 1.7 mg/dL (1.9-2.7)
[2019-12-09] MEDS ORDERED: KCL 20 MEQ/100 ML IVPREMIX* 20 MEQ/100 ML BAG IV SCH (14:00)
[2019-12-09] MEDS: Ondansetron INJ* 2 MG/ML VIAL IV PRN ×2 (15:36→23:06)
[2019-12-09] MEDS: Magnesium Oxide TAB* 400 MG PO SCH (15:52)
[2019-12-09 17:30] LABS: BUN/Creatinine Ratio 10.3 (8-20); Calcium 8.1 mg/dL (8.6-10.3); EGFR African American 125.6 (>60); EGFR Non-African American 103.8 (>60); Potassium 2.9 mmol/L (3.5-5.0)
[2019-12-09] MEDS: KCL 20 MEQ/100 ML IVPREMIX* 20 MEQ/100 ML BAG IV SCH ×2 (17:57→20:20)
[2019-12-09] MEDS ORDERED: Nicotine Patch Removal NOTE FOLLOW UP SCH (21:00)
[2019-12-09 21:31] LABS: Influenza A Molecular Negative (Negative); Influenza B Molecular Negative (Negative)
[2019-12-10] MEDS: LORazepam TAB(*) 1 MG PO SCH ×5 (01:41→14:30)
[2019-12-10 05:33] LABS: ABS Basophils 0.1 10^3/ul (0-0.2); ABS Eosinophils 0.1 10^3/ul (0-0.6); ABS Lymphocytes 1.4 10^3/ul (1.0-4.8); ABS Neutrophils 12.9 10^3/ul (1.5-7.7); Eosinophil % 0.4 %; Hematocrit 32 % (35-47); Hemoglobin 10.6 g/dL (12.0-16.0); Lymphocyte % 8.8 %; Mean Corpuscular HGB Conc 33 g/dL (31-36); Mean Corpuscular Hemoglobin 35 pg (27-31); Mean Corpuscular Volume 105 fL (80-97); Mean Platelet Volume 8.4 fL (7.4-10.4); Platelet Count 170 10^3/uL (150-450); Red Blood Count 3.03 10^6 /uL (3.70-4.87); Red Cell Distribution Width 13 % (10-15); White Blood Count 15.4 10^3/uL (3.5-10.8)
[2019-12-10 06:00] LABS: Urine Appearance Clear; Urine Bilirubin Negative (Negative); Urine Blood Negative (Negative); Urine Color Straw; Urine Glucose Negative (Negative); Urine Ketones Negative (Negative); Urine Nitrite Negative (Negative); Urine Protein Negative (Negative); Urine Specific Gravity 1.004 (1.010-1.030); Urine Urobilinogen Negative (Negative)
[2019-12-10 06:35] LABS: Calcium 7.3 mg/dL (8.6-10.3)
[2019-12-10 06:40] LABS: BUN/Creatinine Ratio 10.7 (8-20); EGFR African American 112.2 (>60); EGFR Non-African American 92.7 (>60)
[2019-12-10] MEDS ORDERED: Potassium Chlor TAB* 20 MEQ TAB.ER PO SCH ×2 (09:00)
[2019-12-10 09:08] LABS: Magnesium 1.5 mg/dL (1.9-2.7)
[2019-12-10] MEDS: Folic Acid TAB* 1 MG PO SCH (09:54)
[2019-12-10] MEDS: Thiamine TAB* 100 MG TAB PO SCH (09:54)
[2019-12-10] MEDS: Pantoprazole TAB * 40 MG TAB PO SCH (09:54)
[2019-12-10] MEDS: Magnesium Oxide TAB* 400 MG PO SCH (09:54)
[2019-12-10] MEDS: Multivitamins/Minerals TAB PO SCH (09:54)
[2019-12-10] MEDS: Nicotine PATCH 21 MG/24 HR* PATCH TRANSDERM SCH (09:56)
[2019-12-10] MEDS: KCL 10 MEQ/50 ML IVPREMIX* 10 MEQ/50 ML BAG IV SCH (09:57)
[2019-12-10] MEDS ORDERED: Potassium Chlor TAB* 20 MEQ TAB.ER PO ONE (09:59)
[2019-12-10] MEDS ORDERED: Magnesium Sulfate IV* 3 GM in NS 0.9% 100 ML* 100 ML IVPB ONE (09:59)
[2019-12-10] MEDS ORDERED: cefTRIAXone(*) 1 GM in NS 0.9% 50 ML* 50 ML IVPB SCH ×2 (10:00→17:00)
[2019-12-10] MEDS ORDERED: Lactated Ringers 1000 ML Bag* 1,000 ML IV ONE (10:01)
[2019-12-10] MEDS: Mupirocin 2% OINT* TUBE TOPICAL SCH ×2 (12:55→14:37)
[2019-12-10] MEDS: Ibuprofen TAB* 600 MG PO PRN (14:30)
[2019-12-10] MEDS: Ondansetron INJ* 2 MG/ML VIAL IV PRN (14:32)
[2019-12-10] MEDS: Cefepime 1 GM in Dextrose(*) 1 GM/50 ML BAG IV SCH (14:36)
[2019-12-10 16:14] VITALS: BP 134/83
--- NOTE | 2019-12-11 00:35 | DS ---
CC: Dl Guerra NP * DISCHARGE/LEAVING AGAINST MEDICAL ADVICE SUMMARY: DATE OF ADMISSION: 12/08/19 DATE OF DISCHARGE: 12/10/19 PRIMARY CARE PHYSICIAN: Dl Guerra NP. DISPOSITION: Home with her father. CONDITION: Stable yet not ready for discharge. PRIMARY DIAGNOSES: 1. Sepsis secondary to unidentified source. 2. Escherichia coli urinary tract infection. 3. Multiple electrolyte derangements including hypokalemia, hypomagnesemia, and hyponatremia. 4. Prolonged QTc. 5. Alcohol withdrawal. SECONDARY DIAGNOSES: 1. Polysubstance abuse including opiates, which includes IV administration, crack cocaine, and marijuana. 2. Alcohol abuse, continued. DIAGNOSTIC STUDIES/LAB DATA: Microbiology: Urine culture is positive for E. coli. Blood cultures are negative at one day. Imaging: Soft tissue ultrasound of a soft tissue infection identified on her left buttocks is notable for markedly edematous dermal and subcutaneous tissue planes. No loculated abscess collection is evident. No foreign body or suggestion of soft tissue cracked buttocks. She also had prolonged QTc. QTc on the day of discharge 472, improved from 607. Pertinent labs: Potassium on presentation metered at 2.3 was 3.0 prior to repletion on the day of discharge. Lactic acid peaked at 3.5, bicarbonate 46 on presentation, 28 at discharge. White blood cell count 15.8 on presentation, 15.4 at the time of leaving. Urine is positive for opiates as well. Serum alcohol 305. Negative influenza A and B. HISTORY OF PRESENT ILLNESS AND HOSPITAL COURSE: This is a 29-year-old female with past medical history as outlined in the history of present illness on the day of admission including polysubstance use including IV drug administration and active alcohol abuse, presented to the hospital after several days of nausea and vomiting and inability to tolerate food or water; however, continued alcohol consumption as well as continued substance use in the form of IV heroin , was found with aforementioned abnormalities in her laboratory studies as well as sepsis from unknown source. She was started on ceftriaxone and vigorously rehydrated, and her electrolytes were repleted with normal saline administration and her bicarbonate corrected. Sodium corrected and her potassium was improving with repletion. Her lactic acid normalized. She had no fevers during the course of the hospital stay. She did require Ativan for withdrawal. However, there was some concern about drug diversion in the hospital with her boyfriend coming and then she was noted by Nursing to be markedly altered, confused, wandering around the hallway. No inclination that she intended to leave the hospital. On the day of discharge, however, eloped to outside. She was retrieved by security and brought back. Her IV was removed. Capacity evaluation was conducted by this author. She was fully oriented, understood the risks inherent to leaving including worsening infection , cardiac arrhythmias and/or arrest, loss of consciousness, severe morbidity and /or mortality from untreated conditions. While she has received Ativan in the setting of her alcohol withdrawal, she was not perceived to be altered from any medications that would inhibit her from taking her own informed decision. She was able to recount the risks to leaving including alternatives to her choice and her understanding of the current conditions, for which she was still hospitalized. She was sent home with medications which reflected her home medications in addition to continued Augmentin, potassium repletion, multivitamin, and prescription for Narcan to be used in case of an overdose. She was informed to return to the hospital should she have recurrent or worsening symptoms including continued nausea, vomiting, inability to tolerate food or water, fevers, chills, night sweats, inability to tolerate medication, bleeding from any source, chest pain, shortness of breath, loss of consciousness. MEDICATIONS AT DISCHARGE: 1. BuSpar 25 mg twice daily. 2. Omeprazole 20 mg daily. 3. Fioricet 1 tablet every 6 hours as needed for migraine. 4. Potassium chloride 20 mEq twice daily for the next 15 days. 5. Narcan as needed for overdose. 6. Bactroban topically 3 times a day. 7. Multivitamin daily. 8. Augmentin 875 mg for 5 additional days. Medications were sent to the pharmacy of her choice. TIME SPENT: Greater than 60 minutes was spent on the discharge. Her father was present at the time of the patient's departure and further conversation. [id number]/[facility] #: [id number] MTDD
== END 2019-12-10 17:25 | disposition left against medical advice (07) | DRG 872 ==
LOC: ED 22:09 → UNDOADMOB 12-09 02:27 → MEDTELE 12-09 02:27 → INTOOBSV 12-10 11:00 → OBSVTOIN 12-10 11:00 → UNDODISOB 12-10 17:25
PROVIDERS: ADMIT Internal Medicine; ATTEND Internal Medicine
DX: A41.9 Sepsis, unspecified organism (principal); N39.0 Urinary tract infection, site not specified; E78.1 Pure hyperglyceridemia; F10.239 Alcohol dependence with withdrawal, unspecified; B96.20 Unspecified Escherichia coli [E. coli] as the cause of diseases classified elsewhere; E87.6 Hypokalemia; E83.42 Hypomagnesemia; K29.20 Alcoholic gastritis without bleeding; R65.20 Severe sepsis without septic shock; R94.31 Abnormal electrocardiogram [ECG] [EKG]; F10.129 Alcohol abuse with intoxication, unspecified; Y90.8 Blood alcohol level of 240 mg/100 ml or more; F11.10 Opioid abuse, uncomplicated; F14.10 Cocaine abuse, uncomplicated; F17.210 Nicotine dependence, cigarettes, uncomplicated; L73.9 Follicular disorder, unspecified; F41.9 Anxiety disorder, unspecified; F12.10 Cannabis abuse, uncomplicated; G43.909 Migraine, unspecified, not intractable, without status migrainosus; Z79.899 Other long term (current) drug therapy; Z81.8 Family history of other mental and behavioral disorders; Z82.49 Family history of ischemic heart disease and other diseases of the circulatory system
CPT/HCPCS: 36415; 71046; 80048; 80053; 80307; 80320; 81003; 81015; 82150; 83605; 83690; 83735; 84443; 84484; 85025; 86140; 87040; 87077; 87086; 87186; 93005; 96372; 96374; 96375; 99284; A9270-GY; G0378; G0480; J0692; J0696; J0780; J2405; J3370; J3411; J3475; J3480

== ENCOUNTER 2020-01-08 05:40 | Emergency (ER) | payer MEDICAID ==
[2020-01-08] MEDS ORDERED: LORazepam TAB(*) 1 MG PO ONE (05:57)
--- NOTE | 2020-01-08 06:00 | ED ---
Neurological HPI - HPI Summary HPI Summary: 29 year old female presents to the ED with a chief complaint of one seizure- like episode minutes [employer]. Patient was conscious throughout the episode, which lasted approximately a minute. She woke up from her sleep in the middle of the night because she felt SOB/tremors and was on her way to take a shower when the episode occurred. She describes feeling very anxious and breathing heavily. Patient states that all of her muscles suddenly tensed up and she fell to the floor. After the episode, patient experienced myalgia, numbness, and paresthesia. Patient's SO immediately brought her to [facility] after the incident. No history of epilepsy or similar symptoms. - History of Current Complaint Chief Complaint: EDSeizure Stated Complaint: SEIZURE PER PT Time Seen by Provider: 01/08/20 05:53 Hx Obtained From: Patient Hx Last Menstrual Period: August 2019 Onset/Duration: Sudden Onset, Started minutes ago Timing: Intermittent Episodes Lasting: - 1 episode 1 minute Onset Severity: Severe Current Severity: Mild Seizure Severity: Mild Neurological Deficit Location: Generalized Pain Intensity: 0 Pain Scale Used: 0-10 Numeric Character: Paresthesia, Other: - All muscles in her body tensed up Syncope Location: All Extremities Aggravating: Unknown Alleviating: Unknown Associated Signs and Symptoms: Positive: Pain, Numbness, Shortness of Breath, Nothing - paresthesia, myalgia TPA Considered: No - Additional Pertinent History Primary Care Physician: SARY - Allergy/Home Medications Allergies/Adverse Reactions: Allergies Allergy/AdvReac Type Severity Reaction Status Date / Time No Known Allergies Allergy Verified 01/09/20 18:08 Home Medications: Home Medications Butalbital/Aspirin/Caffeine [Oeqxjs-Ncuiaiv-Tqsqv 50-325-40] 1 tab PO Q6HR PRN 11/02/19 [History Confirmed 01/09/20] busPIRone TAB* [Buspar TAB*] 25 mg PO BID 11/02/19 [History Confirmed 01/09/20] Multivitamins/Minerals TAB* [Theragran/minerals TAB*] 1 tab PO DAILY #30 tab [Rx Confirmed 01/09/20] Potassium Chlor TAB* [Potassium Chlor TAB 20 MEQ*] 20 meq PO BID #60 tab.er [Rx Confirmed 01/09/20] Amoxicillin/Clavulanate TAB* [Augmentin TAB 875*] 875 mg PO BID #20 tab [Rx] Ibuprofen 600 mg PO ONCE PRN 01/09/20 [History Confirmed 01/09/20] Tobramycin 0.3% OPHTH.DAFNE* 1 drop RIGHT EYE Q4H #1 btl 01/09/20 [Rx] PMH/Surg Hx/FS Hx/Imm Hx Endocrine/Hematology History: Denies: Hx Diabetes, Hx Thyroid Disease Cardiovascular History: Denies: Hx Hypertension, Hx Pacemaker/ICD Respiratory History: Denies: Hx Asthma, Hx Chronic Obstructive Pulmonary Disease (COPD) GI History: Denies: Hx Ulcer History: Denies: Hx Renal Disease Sensory History: Reports: Hx Contacts or Glasses Denies: Hx Deafness, Hx Hearing Aid Opthamlomology History: Reports: Hx Contacts or Glasses Psychiatric History: Reports: Hx Anxiety, Hx Depression, Hx Post Traumatic Stress Disorder, Hx Community [facility] Tx, Hx Suicide Attempt, Hx Substance Abuse Denies: Hx Attention Deficit Hyperactivity Disorder, Hx Eating Disorder, Hx Panic Disorder, Hx Inpatient Treatment, Hx Schizophrenia, Hx Bipolar Disorder, Hx of Violent Episodes Against Others, Other Psychiatric Issues/Disorders - Surgical History Surgery Procedure, Year, and Place: ovarian cyst removal Infectious Disease History: No Infectious Disease History: Denies: Hx Hepatitis, Hx Human Immunodeficiency Virus (HIV), History Other Infectious Disease, Traveled Outside the [place] in Last 30 Days - Family History Known Family History: Positive: Hypertension, Other - anxiety, depression, alcohol abuse - Social History Alcohol Use: Daily Alcohol Amount: 6 beers Hx Substance Use: No Substance Use Type: Reports: None, Heroin, Synthetic Drugs Substance Use Comment - Amount & Last Used: Fentanyl Hx Tobacco Use: Yes Smoking Status (MU): Current Every Day Smoker Type: Cigarettes Amount Used/How Often: 1/2 PPD Review of Systems Positive: Shortness Of Breath Positive: Myalgia Neurological/Mental Status: Other - all muscles tensed Positive: Paresthesia, Numbness All Other Systems Reviewed And Are Negative: Yes Physical Exam - Summary Physical Exam Summary: Appearance: Well-appearing, Well-nourished, lying in bed comfortably Skin: Warm, dry, no obvious rash Eyes: sclera anicteric, no conjunctival pallor HENT: mucous membranes moist, pharynx appears normal Neck: Supple, nontender Respiratory: Clear to auscultation, no signs of respiratory distress Cardiovascular: Normal S1, S2. No murmurs. Normal distal pulses in tibial and radial bilaterally. Abdomen: Soft, nontender, normal active bowel sounds present Musculoskeletal: Normal, Strength/ROM Intact Neurological: A&Ox3, awake and alert, mentation is normal, speech is fluent and appropriate Psychiatric: affect is normal, does not appear anxious or depressed Triage Information Reviewed: Yes Vital Signs On Initial Exam: Initial Vitals Temp Pulse Resp BP Pulse Ox 98.0 F 102 18 127/90 98 01/08/20 05:43 01/08/20 05:43 01/08/20 05:43 01/08/20 05:43 01/08/20 05:43 Vital Signs Reviewed: Yes Procedures - Sedation Patient Received Moderate/Deep Sedation with Procedure: No Diagnostics - Vital Signs Vital Signs Temp Pulse Resp BP Pulse Ox 01/08/20 05:43 98.0 F 102 18 127/90 98 - Laboratory Lab Statement: Any lab studies that have been ordered have been reviewed, and results considered in the medical decision making process. Course/Dx - Course Course Of Treatment: Pt presents with history typical for anxiety/panic attack followed by hyperventilation and carpopedal spasm. She did not lose consciousness throughout this and there is no h/o tonic/clonic activity, post ictal change in sensorium, nor any other finding typical of epileptic seizure. Pt will be medicated with ativan and I anticipate discharge. She does not require any further diagnostics at this time. - Diagnoses Provider Diagnoses: Carpopedal spasm Discharge ED - Sign-Out/Discharge Documenting (check all that apply): Patient Departure - discharge home - Discharge Plan Condition: Stable Disposition: HOME Patient Education Materials: Hyperventilation (ED), Carpopedal Spasm (ED), Panic Attack (ED) Referrals: Dl Guerra, MOSAIC TILER [Primary Care Provider] - 1 Week - Billing Disposition and Condition Condition: STABLE Disposition: Home - Attestation Statements Document Initiated by Scribe: Yes Documenting Scribe: Paul Garza Provider For Whom Milvia is Documenting (Include Credential): Dr. Beck Zapata Scribe Attestation: Paul Hernandez, scribed for Dr. Beck Zapata on 01/11/20 at [id number]. Scribe Documentation Reviewed: Yes Provider Attestation: The documentation as recorded by the scribe, Paul Garza accurately reflects the service I personally performed and the decisions made by me, Dr. Beck Zapata Status of Milvia Document: Viewed
[2020-01-08] MEDS ORDERED: Ibuprofen TAB* 400 MG PO ONE (06:07)
--- OUTSIDE RECORDS SUMMARY | 2020-01-08 06:34 | XMS REPORT | Continuity of Care Document ---
:1990 External Reference #:[id number] Author Name Greta Newman M.D. (transmitted by agent of provider Gay Carver) Address [address] [place] [address] Care Team Providers Name Role Phone Remberto Stout MD - Internal Care Team Information Analytical Scientist [phone] Medicine Ira Barrientos MD - Internal Care Team Information Analytical Scientist [phone] Medicine Problems Active Problems Provider Date Anxiety [...] mouth Tablets two times a day Butalbital/Acetaminoph Take One Tablet 30tabs Dl Guerra NP 10/04/2016 en/Caffeine By Mouth Twice A 50-325-40mg Day as Needed Tablets For Headache Calcium Magnesium 750 daily Unknown 300-300mg Tablets [...] (Body Mass Index) 19.3 kg/m2 Results Test Acquired Facility Test Result H/L Range Note Date Laboratory test 12/08/2019 [facility] Lactic 3.5 mmol/L Critical 0.5-2.0 [address] [place] [address] [phone] CBC Auto Diff 12/08/2019 [facility] White 15.8 High 3.5-10.[address] Blood 10^3/[place] [address] Count [phone] Red Blood Count 4.65 10^6/uL Normal 3.70-4.87 Hemoglobin 16.6 g/dL High 12.0-16.0 Hematocrit 47 % Normal 35-47 Mean Corpuscular Volume 100 fL High 80-97 Mean Corpuscular Hemoglobin 36 pg High 27-31 Mean Corpuscular HGB Conc 36 g/dL Normal 31-36 Red Cell Distribution Width 12 % Normal 10-15 Platelet Count 252 10^3/uL Normal 150-450 Mean Platelet Volume 8.1 fL Normal 7.4-10.4 Abs Neutrophils 13.2 10^3/uL High 1.5-7.7 Abs Lymphocytes 1.4 10^3/uL Normal 1.0-4.8 Abs Monocytes 1.2 10^3/uL High 0-0.8 Abs Eosinophils 0.0 10^3/uL Normal 0-0.6 Abs Basophils 0.0 10^3/uL Normal 0-0.2 Abs Nucleated RBC 0.0 10^3/uL Granulocyte % 83.7 % Lymphocyte % 8.6 % Monocyte % 7.6 % Eosinophil % 0.0 % Basophil % 0.1 % Nucleated Red Blood Cells % 0.1 Laboratory test 12/08/2019 [facility] Troponin-I 0.00 ng/mL < 0.[address] (TnI) [place] [address] [phone] Comp Metabolic 12/08/2019 [facility] Sodium 123 mmol/L Low 135 -[address] [place] [address] [phone] Potassium 2.8 mmol/L Low 3.5-5.0 Chloride 62 mmol/L Low 101-111 Glucose 91 mg/dL Normal 70-100 Blood Urea Nitrogen 7 mg/dL Normal 6-24 Creatinine 0.82 mg/dL Normal 0.51-0.95 BUN/Creatinine Ratio 8.5 Normal 8-20 Calcium 10.1 mg/dL Normal 8.6-10.3 Total Protein 7.8 g/dL Normal 6.4-8.9 Albumin 4.6 g/dL Normal 3.2-5.2 Globulin 3.2 g/dL Normal 2-4 Albumin/Globulin Ratio 1.4 Normal 1-3 Total Bilirubin 1.10 mg/dL High 0.2-1.0 Alkaline Phosphatase 136 U/L High 34-104 Alt 55 U/L High 7-52 Ast 64 U/L High 13-39 Egfr Non- 83.6 >60 Egfr 101.2 >60 3 Co2 Carbon Dioxide 46 mmol/L Critical high 22-32 4 Laboratory test 12/08/2019 [facility] Magnesium 2.0 mg/dL Normal 1.9-2.[address] [place] [address] [phone] C Reactive Protein 6.60 mg/L Normal <8.01 Amylase 11 U/L Low 29-103 Lipase 10 U/L Low 11.0-82.0 Alcohol 305 mg/dL High <10 TSH (Thyroid Stim Horm) 0.56 mcIU/mL Normal 0.34-5.60 Urine Drug 12/08/2019 [facility] Urine None Detected None Detect SCR ED & [address] [place] [address] Screen [phone] Urine Barbiturates Screen None Detected None Detect Urine Benzodiazepine Screen None Detected None Detect Urine Cannabinoids Screen None Detected None Detect Urine Cocaine Screen None Detected None Detect Urine Opiates Screen Presumptive Posi <SEE NOTE> Abnormal None Detect 5 Urine Phencyclidine Screen None Detected None Detect 6 Urinalysis Profile 12/08/2019 [facility] Urine Color Yellow [address] [place], [place] [id number] [phone] Urine Appearance Cloudy Urine Specific Paguate 1.002 Low 1.010-1.030 Urine pH 8.0 Normal 5-9 Urine Urobilinogen Negative Negative Urine Ketones Negative Negative Urine Protein Negative Negative Urine Leukocytes Trace Abnormal Negative Urine Blood Negative Negative Urine Nitrite Negative Negative Urine Bilirubin Negative Negative Urine Glucose Negative Negative Urine White Blood Cell Absent Absent Urine Red Blood Cell Absent Absent Urine Bacteria Absent Absent Urine Squamous Epithelial Cell Present Abnormal Absent Urine Culture And 12/08/2019 [facility] Urine Culture SEE RESULT [address] [place] [address] [phone] Urine Culture And 08/17/2019 [facility] Urine Culture SEE RESULT [address] [place] [address] [phone] Urine Culture And 08/17/2019 [facility] Urine Culture SEE RESULT [address] [place] [address] [phone] Urine Drug SCR ED 08/17/2019 [facility] Urine None None & [facility] [address] [place] [address] Screen [phone] Urine Barbiturates Screen None Detected None Detect Urine Benzodiazepine Screen Presumptive Posi <SEE NOTE> Abnormal None Detect 10 Urine Cannabinoids Screen None Detected None Detect Urine Cocaine Screen Presumptive Posi <SEE NOTE> Abnormal None Detect 11 Urine Opiates Screen None Detected None Detect Urine Phencyclidine Screen None Detected None Detect 12 Urinalysis Profile 08/17/2019 [facility] Urine Color Yellow [address] [place] [address] [phone] Urine Appearance Cloudy Urine Specific Paguate 1.010 Normal 1.010-1.030 Urine pH 6.0 Normal 5-9 Urine Urobilinogen Negative Negative Urine Ketones Negative Negative Urine Protein Negative Negative Urine Leukocytes Negative Negative Urine Blood 1+ Abnormal Negative Urine Nitrite Negative Negative Urine Bilirubin Negative Negative Urine Glucose Negative Negative Urine White Blood Cell Trace(0-5/hpf) Absent Urine Red Blood Cell Trace(0-2/hpf) Absent Urine Bacteria 1+ Abnormal Absent Urine Squamous Epithelial Cell Present Abnormal Absent Urine Hyaline Casts Present Abnormal Absent Laboratory test 08/17/2019 [facility] Acetaminophen < 15 g/mL 13 finding [address] [place] [address] [phone] Salicylate < 2.50 mg/dL <30 HCG < 0.60 mIU/mL 14 Alcohol 451 mg/dL Critical high <10 15 TSH (Thyroid Stim Horm) 0.96 mcIU/mL Normal 0.34-5.60 Comp Metabolic 08/17/2019 [facility] Sodium 141 mmol/L Normal 135-145 Panel [address] [place] [address] [phone] Potassium 3.5 mmol/L Normal 3.5-5.0 Chloride 101 mmol/L Normal 101-111 Co2 Carbon Dioxide 29 mmol/L Normal 22-32 Anion Gap 11 mmol/L Normal 2-11 Glucose 90 mg/dL Normal 70-100 Blood Urea Nitrogen 7 mg/dL Normal 6-24 Creatinine 0.73 mg/dL Normal 0.51-0.95 BUN/Creatinine Ratio 9.6 Normal 8-20 Calcium 9.5 mg/dL Normal 8.6-10.3 Total Protein 7.7 g/dL Normal 6.4-8.9 Albumin 4.7 g/dL Normal 3.2-5.2 Globulin 3.0 g/dL Normal 2-4 Albumin/Globulin Ratio 1.6 Normal 1-3 Total Bilirubin 0.30 mg/dL Normal 0.2-1.0 Alkaline Phosphatase 102 U/L Normal 34-104 Alt 51 U/L Normal 7-52 Ast 66 U/L High 13-39 Egfr Non- 95.6 >60 Egfr 115.7 >60 16 Laboratory test 08/17/2019 [facility] Lactic Acid 1.5 mmol/L Normal 0.5-2.0 17 finding [address] [place], [place] [id number] [phone] CBC Auto Diff 08/17/2019 [facility] White Blood 6.0 Normal 3.5 -10.[address] Count 10^3/uL [place], [place] [address] [phone] Red Blood Count 4.17 10^6/uL Normal 3.70-4.87 Hemoglobin 14.6 g/dL Normal 12.0-16.0 Hematocrit 43 % Normal 35-47 Mean Corpuscular Volume 103 fL High 80-97 Mean Corpuscular Hemoglobin 35 pg High 27-31 Mean Corpuscular HGB Conc 34 g/dL Normal 31-36 Red Cell Distribution Width 12 % Normal 10-15 Platelet Count 210 10^3/uL Normal 150-450 Mean Platelet Volume 7.3 fL Low 7.4-10.4 Abs Neutrophils 3.1 10^3/uL Normal 1.5-7.7 Abs Lymphocytes 1.8 10^3/uL Normal 1.0-4.8 Abs Monocytes 0.8 10^3/uL Normal 0-0.8 Abs Eosinophils 0.2 10^3/uL Normal 0-0.6 Abs Basophils 0.1 10^3/uL Normal 0-0.2 Abs Nucleated RBC 0.0 10^3/uL Granulocyte % 51.5 % Lymphocyte % 30.6 % Monocyte % 13.1 % Eosinophil % 2.6 % Basophil % 2.2 % Nucleated Red Blood Cells % 0.1 Laboratory 07/16/2019 [facility] D Dimer < 200 Normal Less 18 test finding [address] Quantitative ng/mL Than [place], [place] [phone] CBC Auto Diff 07/16/2019 [facility] White Blood 6.3 Normal 3.5 -10. [address] Count 10^3/uL 8 [place] [address] [phone] Red Blood Count 4.24 10^6/uL Normal 3.70-4.87 [...] Blood Cells % 0.0 Laboratory test 07/16/2019 [facility] Troponin-I (TnI) 0.00 ng/ mL <0.04 19 finding [address] [place] [address] [phone] Acetaminophen < 15 g/mL 20 Alcohol < 10 mg/dL Normal <10 Salicylate < 2.50 mg/dL <30 Comp Metabolic 07/16/2019 [facility] Sodium 139 mmol/L Normal 135-145 Panel [address] [place] [address] [phone] Potassium 3.8 mmol/L Normal 3.5-5.0 Chloride 99 [...] Egfr Non- 92.7 >60 Egfr 112.2 >60 21 Laboratory 07/16/2019 [facility] TSH (Thyroid 2.68 Normal 0.34 -5.60 test finding [address] Stim Horm) mcIU/[place] [address] [phone] 1 Critical Result LACT:3.5 Called to [id number] at: 23:52:08 by:[id number] Read back by:[id number] [facility] Severe Sepsis and Septic Shock Management Bundle Measure requires all lactic acids initially measuring >2.0 mmol/L be repeated. 2 Troponin-I testing on Plasma Separator Tubes (PST) has a known false positive rate of 0.20-0.40%. All positive troponins reflex immediately to secondary confirmatory testing. Using the [employer] 800 Access Immunoassay systems, the 99th percentile upper reference limit was demonstrated to be < 0.03 ng/mL. 3 Because ethnic data is not always readily [...] 15-29 5 Kidney failure <15 (or dialysis) 4 Critical Result CO2:46 Called to [id number] at: 00:20:33 by:[id number] Read back by:[id number] 5 Presumptive Positive Presumptive positive results are unconfirmed. 6 The urine specimen was tested at the listed cutoffs: Drug class test level (ng/mL) Amphetamines 500 Barbiturates 200 Benzodiazepine metabolites 200 Cocaine metabolites 150 Cannabinoids 50 Opiates 300 Pcp 25 Specimen was received without chain of custody. Results should be used for medical purposes only. 7 SEE RESULT BELOW Name: REN CRAIN : [address]: Remberto Stout MD Acct: [id number] Unit: [id number] AGE: 29 Location: [facility] 439-01 Re12/10/19 Dis: 12/10/19 SEX: F Status: DIS IN SPEC: [id number] JAREN: 12/09/19-[address]: Sean RUELAS REQ: [id number] RECD: 12/09/19 STATUS: LUZMA CLEANING DR: Dl Guerra DEVELOPMENT TECHNICIAN _ SOURCE: URINE SPDESC: ORDERED: Urine Culture Procedure Result Reported Site Urine Culture Final 12/11/19- 0925 ML Organism 1 ESCHERICHIA COLI Marshall Count >100,000 (Many) CFU/ML 1. ESCHERICHIA COLI M.I.C. RX --------- ------ Ampicillin >=32 R Cefazolin <=4 S Cefepime <=1 S Ceftriaxone <=1 S Ciprofloxacin <=0.25 S Gentamicin <=1 S Levofloxacin <=0.12 S Meropenem <=0.25 S Nitrofurantoin <=16 S Tetracycline <=1 S Pipercillin/Tazobactam <=4 S Trimethoprim/Sulfamethoxazole <=20 S Amoxicillin/Clavulanic Acid 8 S Aztreonam <=1 S Contact the Microbiology Department for any additional antibiotic reporting. * ML - Main Lab . END OF REPORT DEPARTMENT OF PATHOLOGY, [address] [place] [address] Christian Matthews M.D. Director [facility] # [id number] 8 SEE RESULT BELOW Name: REN CRAIN : [address]: Remberto Stout MD Acct: [id number] Unit: [id number] AGE: 29 Location: [place] [address] Re08/18/19 Dis: 08/19/19 SEX: F Status: DIS Jeniffer SPEC: [id number] JAREN: 08/18/[address] [facility] [address]: Loida Segal MD REQ: [id number] RECD: 08/18/19 STATUS:LUZMA CLEANING DR: [facility] Dl Guerra DEVELOPMENT TECHNICIAN _ SOURCE: URINE SPDESC: ORDERED: Urine Culture Procedure Result Reported Site Urine Culture Final 09/02/19- 1221 ML Organism 1 LYNNETTE VAGINALIS-PRESUMPTIVE Marshall Count >100,000 (Many) CFU/ML Gardnerella vaginalis can play a role in extravaginal infections to include the urinary tract. Treatment of choice for local infections is metronidazole. (Manual of Clinical Microbiology, p.508; Ja[employer] Color [place] and Textbook of Diagnostic Microbiology, p. 836) * ML - Main Lab . END OF REPORT DEPARTMENT OF PATHOLOGY, [address] [place] [address] Christian Matthews M.D. Director [facility] # [id number] 9 SEE RESULT BELOW Name: ELSAREN SHETTY MARSHALL : [address]: Remberto Stout MD Acct: [id number] Unit: [id number] AGE: 29 Location: [place] [address] Re08/18/19 Dis: 08/19/19 SEX: F Status: DIS Jeniffer SPEC: [id number] JAREN: 08/18/[address]: Loida Segal MD REQ: [id number] RECD: 08/18/19 STATUS:LUZMA CLEANING DR: [facility] Dl Guerra DEVELOPMENT TECHNICIAN _ SOURCE: URINE SPDESC: ORDERED: Urine Culture Procedure Result Reported Site Urine Culture Final 08/25/19- 1702 ML Organism 1 LYNNETTE VAGINALIS-PRESUMPTIVE Marshall Count >100,000 (Many) CFU/ML Gardnerella vaginalis can play a role in extravaginal infections to include the urinary tract. Treatment of choice for local infections is metronidazole. (Manual of Clinical Microbiology, p.508; Ja[employer] Color [place] and Textbook of Diagnostic Microbiology, p. 471) * ML - Main Lab . END OF REPORT DEPARTMENT OF PATHOLOGY, [address] [place] [address] Christian Matthews M.D. Director [facility] # [id number] 10 Presumptive Positive Presumptive positive results are unconfirmed. 11 Presumptive Positive Presumptive positive results are unconfirmed. 12 The urine specimen was tested at the listed cutoffs: Drug class test level (ng/mL) Amphetamines 500 Barbiturates 200 Benzodiazepine metabolites 200 Cocaine metabolites 150 Cannabinoids 50 Opiates 300 Pcp 25 Specimen was received without chain of custody. Results should be used for medical purposes only. 13 Therapeutic concentration: <50 ug/mL Toxic concentration: >120 ug/mL 14 <5.0 Negative 5.0 - 25.0 Indeterminate (Repeat testing recommended after 72 hours) >25.0 Positive Perimenopausal women can display HCG levels of up to 20 mIU/mL 15 Critical Result ETOH:450.9 Called to [id number] at: 22:50:19 by:[id number] Read back by:[email or web address] 16 Because ethnic data is not always readily [...] 15-29 5 Kidney failure <15 (or dialysis) 17 [facility] Severe Sepsis and Septic Shock Management Bundle Measure requires all lactic acids initially measuring >2.0 mmol/L be repeated. 18 Please note: The following may produce a false positive D Dimer test: - Rheumatoid factor greater than 60 IU/ml - Plasma hemoglobin greater than 0.05 gm/dl - Bilirubin greater than 50 mg/dl - Lipids greater than 1000 mg/dl - FDP greater than 20 ug/ml 19 Troponin-I testing on Plasma Separator Tubes (PST) has a known false positive rate of 0.20-0.40%. All positive troponins reflex immediately to secondary confirmatory testing. Using the [employer] 800 Access Immunoassay systems, the 99th percentile upper reference limit was demonstrated to be < 0.03 ng/mL. 20 Therapeutic concentration: <50 ug/mL Toxic concentration: >120 ug/mL 21 Because ethnic data is not always readily [...] 5 Kidney failure <15 (or dialysis) Procedures Date Code Description Status 08/18/2019 70364 EKG, Interpretation Only Completed Medical Devices Description No Information Available Encounters Type Date Location Provider Dx Diagnosis Office Visit 12/09/2019 [facility] Greta Newman, K29.20 Alcoholic 9:58a fani Varghese M.D. gastritis without Hospitalists bleeding R65.10 Sirs of non-infectious origin w/o acute organ dysfunction F10.188 Alcohol abuse with other alcohol-induced disorder Office Visit 08/19/2019 [facility] Remberto T43.222A Poisn by slctv 9:05a fani Varghese M.D. serotonin Hospitalists reuptake inhibtr, self-harm, init F10.239 Alcohol dependence with withdrawal, unspecified Office Visit 08/18/2019 [facility] Ashley Arboleda T43.222A Poisn by slctv 9:05a fani Varghese M.D. serotonin Hospitalists reuptake inhibtr, self-harm, init F10.188 Alcohol abuse with other alcohol-induced disorder Office Visit 07/17/2019 4:20p [facility] Dl Guerra, F41.9 [facility] DEVELOPMENT TECHNICIAN unspecified R03.0 Elevated blood-pressure reading, w/o diagnosis of htn Assessments Date Code Description Provider 12/09/2019 K29.20 Alcoholic gastritis without bleeding Greta Newman M.D. 12/09/2019 R65.10 Systemic inflammatory response syndrome Greta Newman M.D. (Sirs) of non-infectious origin without acute organ dysfunction 12/09/2019 F10.188 Alcohol abuse with other alcohol-induced Greta Newman M.D. disorder 08/19/2019 T43.222A Poisoning by selective serotonin reuptake Remberto Stout M.D. inhibitors, intentional self-harm, initial encounter 08/19/2019 F10.239 Alcohol dependence with withdrawal, Remberto Stout M.D. unspecified 08/18/2019 Z13.6 Encounter for screening for cardiovascular Nicky Garcia M.D. disorders 08/18/2019 T43.222A Poisoning by selective serotonin reuptake Ashley Arboleda M.D. inhibitors, intentional self-harm, initial encounter 08/18/2019 F10.188 Alcohol abuse with other alcohol-induced Ashley Arboleda M.D. disorder 07/17/2019 F41.9 Anxiety disorder, unspecified Dl Guerra NP 07/17/2019 R03.0 Elevated blood-pressure reading, without Dl Guerra NP diagnosis of hypertension Plan of Treatment 07/17/2019 - Dl Guerra NPF41.9 Anxiety disorder, unspecifiedComments:Continue [...]
[2020-01-08 07:27] VITALS: BP 127/80
== END 2020-01-08 07:25 | disposition home or self-care (01) ==
LOC: ED 05:40
DX: R29.0 Tetany (principal); F41.9 Anxiety disorder, unspecified; R20.2 Paresthesia of skin; R06.02 Shortness of breath; F17.210 Nicotine dependence, cigarettes, uncomplicated
CPT/HCPCS: 99282; A9270-GY

== ENCOUNTER 2020-01-09 17:55 | Emergency (ER) | payer MEDICAID ==
--- NOTE | 2020-01-09 18:37 | UC ---
Eye Complaint HPI - HPI Summary HPI Summary: 29-year-old woman comes in with a chief complaint of right I irritation and drainage. Started 2 days ago. She does have a frontal headache and some sinus pressure. She does get yellow crusting of the eye. She cleans the area off it does decrease the irritation. No known fevers. Does have a mild cough no shortness of breath. Patient is a smoker. Patient reports her cough is chronic. No known exposure to Covid 19. - History of Current Complaint Chief Complaint: UCEye Stated Complaint: EYE ISSUE Time Seen by Provider: 01/09/20 18:16 Hx Last Menstrual Period: IUD in place Pain Intensity: 6 - Allergies/Home Medications Allergies/Adverse Reactions: Allergies Allergy/AdvReac Type Severity Reaction Status Date / Time No Known Allergies Allergy Verified 01/09/20 18:08 Home Medications: Home Medications Butalbital/Aspirin/Caffeine [Jnzerr-Zrvwxsr-Erzlx 50-325-40] 1 tab PO Q6HR PRN 11/02/19 [History Confirmed 01/09/20] busPIRone TAB* [Buspar TAB*] 25 mg PO BID 11/02/19 [History Confirmed 01/09/20] Multivitamins/Minerals TAB* [Theragran/minerals TAB*] 1 tab PO DAILY #30 tab [Rx Confirmed 01/09/20] Potassium Chlor TAB* [Potassium Chlor TAB 20 MEQ*] 20 meq PO BID #60 tab.er [Rx Confirmed 01/09/20] Amoxicillin/Clavulanate TAB* [Augmentin TAB 875*] 875 mg PO BID #20 tab [Rx] Ibuprofen 600 mg PO ONCE PRN 01/09/20 [History Confirmed 01/09/20] Tobramycin 0.3% OPHTH.DAFNE* 1 drop RIGHT EYE Q4H #1 btl 01/09/20 [Rx] PMH/Surg Hx/FS Hx/Imm Hx Previously Healthy: Yes - Surgical History Surgical History: Yes Surgery Procedure, Year, and Place: ovarian cyst removal - Family History Known Family History: Positive: Hypertension, Other - anxiety, depression, alcohol abuse - Social History Alcohol Use: Occasionally Alcohol Amount: 6 beers Substance Use Type: None Substance Use Comment - Amount & Last Used: Fentanyl Smoking Status (MU): Light Every Day Tobacco Smoker Type: Cigarettes Amount Used/How Often: 1/2 PPD Household Exposure Type: Cigarettes - Immunization History Most Recent Influenza Vaccination: NOT UTD Most Recent Pneumonia Vaccination: never Review of Systems All Other Systems Reviewed And Are Negative: Yes Constitutional: Positive: Other - SEE HPI Skin: Positive: Negative Eyes: Positive: Drainage - RT, Eye Redness - RT ENT: Positive: Nasal Discharge, Sinus Congestion, Sinus Pain/Tenderness Respiratory: Positive: Cough - SEE HPI Cardiovascular: Positive: Negative Motor: Positive: Negative Neurovascular: Positive: Negative Musculoskeletal: Positive: Negative Neurological/Mental Status: Positive: Headache - FRONTAL Psychological: Positive: Negative Is Patient Immunocompromised?: No Physical Exam Triage Information Reviewed: Yes Appearance: Well-Appearing, No Pain Distress, Well-Nourished Vital Signs Reviewed: Yes Eyes: Positive: Conjunctiva Inflamed - RT, Discharge - RT, Other: - PERRLA EOMI. There is some erythema in the upper and lower eyelids on the right side. ENT: Positive: Pharynx normal, Nasal congestion, Nasal drainage Neck: Positive: Supple Respiratory: Positive: No respiratory distress Musculoskeletal: Positive: Strength Intact, ROM Intact Neurological: Positive: Alert, Muscle Tone Normal Psychological: Positive: Age Appropriate Behavior Skin: Positive: Other - There is some erythema of the upper and lower eyelids on the right Eye Complaint Course/Dx - Course Course Of Treatment: Discussed viral versus bacterial infections. Patient prefers to be an antibiotic this time. Eyelids on the right are erythematous at this time the probability of a cellulitis is low. Patient is to get reevaluated if not improving or worse. - Differential Dx/Diagnosis Provider Diagnosis: Conjunctivitis, right eye, Sinusitis Discharge ED - Sign-Out/Discharge Documenting (check all that apply): Patient Departure All imaging exams completed and their final reports reviewed: No Studies - Discharge Plan Condition: Stable Disposition: HOME Prescriptions: Amoxicillin/Clavulanate TAB* [Augmentin TAB 875*] 875 mg PO BID #20 tab Tobramycin 0.3% OPHTH.DAFNE* 1 drop RIGHT EYE Q4H #1 btl Patient Education Materials: Sinusitis (ED), Conjunctivitis (ED) Referrals: Dl Guerra, ROLL SETTER [Primary Care Provider] - Additional Instructions: FOLLOW UP WITH YOUR DOCTOR IF NOT COMPLETELY IMPROVED. GET REEVALUATED IF NOT IMPROVED OR WORSE OR ANY QUESTIONS OR CONCERNS. - Billing Disposition and Condition Condition: STABLE Disposition: Home
[2020-01-09 18:39] VITALS: BP 132/87
== END 2020-01-09 18:44 | disposition home or self-care (01) ==
LOC: UCEAST 17:55
DX: H10.31 Unspecified acute conjunctivitis, right eye (principal); J32.9 Chronic sinusitis, unspecified; F17.210 Nicotine dependence, cigarettes, uncomplicated
CPT/HCPCS: 99212; G0463

== ENCOUNTER 2020-03-27 22:55 | Inpatient (IN) ==
[2020-03-28 00:23] LABS: BUN/Creatinine Ratio 11.1 (8-20); Blood Urea Nitrogen 9 mg/dL (6-24); CO2 Carbon Dioxide 39 mmol/L (22-32); Calcium 9.2 mg/dL (8.6-10.3); Chloride 83 mmol/L (101-111); EGFR African American 102.6 (>60); EGFR Non-African American 84.8 (>60); Glucose 71 mg/dL (70-100); Magnesium 1.6 mg/dL (1.9-2.7); Sodium 133 mmol/L (135-145)
[2020-03-28 00:28] LABS: Anion Gap 11 mmol/L (2-11); Potassium 2.6 mmol/L (3.5-5.0)
[2020-03-28 00:38] LABS: ABS Lymphocytes 2.6 10^3/ul (1.0-4.8); ABS Monocytes 0.5 10^3/ul (0-0.8); Eosinophil % 0.4 %; Hematocrit 44 % (35-47); Lymphocyte % 25.1 %; Mean Corpuscular HGB Conc 34 g/dL (31-36); Mean Corpuscular Hemoglobin 32 pg (27-31); Mean Corpuscular Volume 93 fL (80-97); Mean Platelet Volume 8.2 fL (7.4-10.4); Platelet Count 335 10^3/uL (150-450); Red Blood Count 4.68 10^6 /uL (3.70-4.87); Red Cell Distribution Width 15 % (10-15); White Blood Count 10.2 10^3/uL (3.5-10.8)
[2020-03-28] MEDS ORDERED: KCL 20 MEQ/100 ML IVPREMIX 20 MEQ/100 ML BAG IV ONE (00:44)
[2020-03-28] MEDS ORDERED: Magnesium Sulfate 2 gm BAG 2 GM/50 ML BAG IVPB ONE (00:44)
[2020-03-28 00:48] LABS: Alcohol, S < 10 mg/dL (<10)
[2020-03-28 00:50] LABS: Albumin 3.5 g/dL (3.2-5.2); Alkaline Phosphatase 329 U/L (34-104); C Reactive Protein 39.56 mg/L (<8.01); Globulin 3.4 g/dL (2-4); Total Protein 6.9 g/dL (6.4-8.9)
[2020-03-28 00:53] LABS: Troponin I 0.02 ng/mL (<0.03)
[2020-03-28 00:56] LABS: HCG Pregnancy < 0.60 mIU/mL
[2020-03-28 01:12] LABS: ALT 1565 U/L (7-52); AST 5406 U/L (13-39)
[2020-03-28 01:35] LABS: Activated Partial Thrombo Time 34.7 seconds (26.0-38.0); INR 1.55 (0.82-1.09)
[2020-03-28] MEDS ORDERED: Iohexol 300 (CONTRAST) 10 ML SDV IV ONE (01:44)
[2020-03-28 02:12] LABS: Acetaminophen < 15 mcg/mL; Salicylate < 2.50 mg/dL (<30)
[2020-03-28 02:31] LABS: Creatine Kinase 46 U/L (10-223); Phosphorus 2.7 mg/dL (2.5-5.0)
[2020-03-28 03:03] LABS: Hepatitis B Surface Antigen Nonreactive (Nonreactive)
[2020-03-28 03:08] LABS: Hepatitis A Ab IgM Negative (Negative)
[2020-03-28 03:09] LABS: Hepatitis B Core IgM Nonreactive (Nonreactive)
[2020-03-28] MEDS ORDERED: Ondansetron 4 mg VIAL 2 MG/ML 2 ml VIAL IV PRN (03:09)
[2020-03-28] MEDS ORDERED: Al Hydrox/Mg Hydrox/Simet LIQ 30 ML UDC PO PRN (03:09)
[2020-03-28] MEDS ORDERED: Potassium Chlor 20 meq TAB.ER PO ONE (03:09)
[2020-03-28 03:21] LABS: Hepatitis C Antibody Negative (Negative)
[2020-03-28 03:39] LABS: Hematocrit 41 % (35-47); Hemoglobin 14.2 g/dL (12.0-16.0); Mean Corpuscular HGB Conc 34 g/dL (31-36); Mean Corpuscular Hemoglobin 32 pg (27-31); Mean Corpuscular Volume 92 fL (80-97); Mean Platelet Volume 8.2 fL (7.4-10.4); Platelet Count 326 10^3/uL (150-450); Red Blood Count 4.48 10^6 /uL (3.70-4.87); Red Cell Distribution Width 15 % (10-15); White Blood Count 11.9 10^3/uL (3.5-10.8)
[2020-03-28 03:40] LABS: Prealbumin 13 mg/dL (18-38)
[2020-03-28] MEDS ORDERED: NS 0.9% 500 ml BAG 500 ML IV ONE (03:41)
[2020-03-28 03:43] LABS: INR 1.7 (0.82-1.09)
[2020-03-28 03:53] LABS: LDH 4190 U/L (140-271)
[2020-03-28 03:58] LABS: ABS Basophils 0.1 10^3/ul (0-0.2); ABS Eosinophils 0.1 10^3/ul (0-0.6); ABS Lymphocytes 4.7 10^3/ul (1.0-4.8); ABS Monocytes 0.8 10^3/ul (0-0.8); ABS Neutrophils 6.1 10^3/ul (1.5-7.7); Eosinophil % 0.6 %; Nucleated Red Blood Cells % 0.1
[2020-03-28 04:38] LABS: Albumin 2.7 g/dL (3.2-5.2); Albumin/Globulin Ratio 1.1 (1-3); BUN/Creatinine Ratio 10.8 (8-20); Calcium 7.3 mg/dL (8.6-10.3); EGFR African American 132.3 (>60); EGFR Non-African American 109.3 (>60); Globulin 2.5 g/dL (2-4); Potassium 2.9 mmol/L (3.5-5.0); Total Bilirubin 1.5 mg/dL (0.2-1.0); Total Protein 5.2 g/dL (6.4-8.9)
[2020-03-28 08:10] LABS: Urine Benzodiazepine Screen None Detected (None Detect); Urine Cannabinoids Screen None Detected (None Detect); Urine Opiates Screen None Detected (None Detect)
[2020-03-28 08:28] LABS: Urine Appearance Clear; Urine Color Yellow; Urine Ketones Negative (Negative); Urine Protein Negative (Negative); Urine Specific Gravity 1.005 (1.010-1.030); Urine Urobilinogen Negative (Negative)
[2020-03-28 08:29] LABS: Urine Bilirubin Negative (Negative); Urine Blood Negative (Negative); Urine Glucose Negative (Negative); Urine Nitrite Negative (Negative)
[2020-03-28] MEDS ORDERED: Prochlorperazine 5 mg/ml 2 ml VIAL (10 mg) IV ONE (09:25)
[2020-03-28] MEDS: Potassium Chlor 20 meq TAB.ER PO SCH ×3 (09:47→20:17)
[2020-03-28] MEDS: Mupirocin 2% OINT TUBE TOPICAL SCH ×2 (09:47→20:18)
[2020-03-28] MEDS ORDERED: Buprenorp/Nalox 4-1 MG FILM SL FILM ONE ×2 (13:30→14:30)
[2020-03-28] MEDS: Buprenorp/Nalox 8-2 MG FILM SL FILM SCH (20:18)
[2020-03-29] MEDS: Mupirocin 2% OINT TUBE TOPICAL SCH (07:35)
[2020-03-29] MEDS: Buprenorp/Nalox 8-2 MG FILM SL FILM SCH (07:35)
[2020-03-29] MEDS: Potassium Chlor 20 meq TAB.ER PO SCH (07:35)
[2020-03-29 08:12] LABS: Hematocrit 42 % (35-47); Hemoglobin 14.1 g/dL (12.0-16.0); Mean Corpuscular HGB Conc 34 g/dL (31-36); Mean Corpuscular Hemoglobin 32 pg (27-31); Mean Corpuscular Volume 95 fL (80-97); Mean Platelet Volume 7.9 fL (7.4-10.4); Platelet Count 314 10^3/uL (150-450); Red Blood Count 4.42 10^6 /uL (3.70-4.87); Red Cell Distribution Width 16 % (10-15); White Blood Count 11.8 10^3/uL (3.5-10.8)
[2020-03-29 08:27] LABS: Albumin 3.1 g/dL (3.2-5.2); BUN/Creatinine Ratio 5.4 (8-20); Calcium 8.7 mg/dL (8.6-10.3); EGFR African American 113.9 (>60); EGFR Non-African American 94.1 (>60); Globulin 3.2 g/dL (2-4); Potassium 3.6 mmol/L (3.5-5.0); Total Bilirubin 2.4 mg/dL (0.2-1.0); Total Protein 6.3 g/dL (6.4-8.9)
[2020-03-29 08:29] LABS: ABS Basophils 0.2 10^3/ul (0-0.2); ABS Eosinophils 0.2 10^3/ul (0-0.6); ABS Lymphocytes 6.1 10^3/ul (1.0-4.8); ABS Monocytes 1.1 10^3/ul (0-0.8); ABS Neutrophils 4.2 10^3/ul (1.5-7.7); Eosinophil % 1.9 %; Lymphocyte % 51.4 %; Nucleated Red Blood Cells % 0.2
[2020-03-29] MEDS ORDERED: Lidocaine 4% GEL 10 GM TUBE TOPICAL SCH (09:30)
[2020-03-29 10:02] LABS: INR 1.48 (0.82-1.09)
[2020-03-29 11:17] VITALS: BP 117/65
[2020-03-29 12:22] LABS: Magnesium 1.6 mg/dL (1.9-2.7)
[2020-03-29] MEDS ORDERED: Lidocaine 4% GEL 10 GM TUBE TOPICAL ONE (12:57)
[2020-03-30 11:13] LABS: Ceruloplasmin 27.4 mg/dL
[2020-03-30 14:05] LABS: Smooth Muscle Antibody Negative (Negative)
== END 2020-03-29 13:30 | disposition home or self-care (01) | DRG 433 ==
LOC: ED 22:55 → MEDTELE 03-28 04:20
PROVIDERS: ADMIT Pediatrics; ATTEND Internal Medicine

== ENCOUNTER 2020-06-07 06:40 | Inpatient (IN) ==
[2020-06-07] MEDS ORDERED: cefTRIAXone 1 gm/50 mL NS BAG 1 GM/50 ML BAG IV ONE (07:09)
[2020-06-07] MEDS ORDERED: Ondansetron 4 mg VIAL 2 MG/ML 2 ml VIAL IV ONE (07:09)
[2020-06-07] MEDS ORDERED: NS 0.9% 1000 ml BAG 1,000 ML IV.FLUID IV ONE (07:09)
[2020-06-07 07:35] LABS: ABS Lymphocytes 0.4 10^3/ul (1.0-4.8); ABS Monocytes 0.9 10^3/ul (0-0.8); ABS Neutrophils 13.8 10^3/ul (1.5-7.7); Hematocrit 37 % (35-47); Hemoglobin 12.7 g/dL (12.0-16.0); Lymphocyte % 2.7 %; Mean Corpuscular HGB Conc 34 g/dL (31-36); Mean Corpuscular Hemoglobin 33 pg (27-31); Mean Corpuscular Volume 96 fL (80-97); Mean Platelet Volume 6.8 fL (7.4-10.4); Platelet Count 211 10^3/uL (150-450); Red Blood Count 3.88 10^6 /uL (3.70-4.87); Red Cell Distribution Width 13 % (10-15); White Blood Count 15.2 10^3/uL (3.5-10.8)
[2020-06-07 07:57] LABS: ALT 46 U/L (7-52); AST 86 U/L (13-39); Albumin 3.9 g/dL (3.2-5.2); Albumin/Globulin Ratio 1.1 (1-3); Alkaline Phosphatase 255 U/L (34-104); Anion Gap 12 mmol/L (2-11); BUN/Creatinine Ratio 6.5 (8-20); Blood Urea Nitrogen 5 mg/dL (6-24); C Reactive Protein 11.65 mg/L (<8.01); CO2 Carbon Dioxide 27 mmol/L (22-32); Calcium 8.9 mg/dL (8.6-10.3); Chloride 101 mmol/L (101-111); EGFR African American 108.8 (>60); EGFR Non-African American 89.9 (>60); Globulin 3.6 g/dL (2-4); Glucose 120 mg/dL (70-100); Potassium 3.4 mmol/L (3.5-5.0); Sodium 140 mmol/L (135-145); Total Protein 7.5 g/dL (6.4-8.9)
[2020-06-07] MEDS ORDERED: Morphine 4 MG/ML VIAL (1 ml) IV ONE ×2 (08:07→10:11)
[2020-06-07 08:14] LABS: Activated Partial Thrombo Time 34.8 seconds (26.0-38.0); INR 1.15 (0.82-1.09)
[2020-06-07 08:23] LABS: Acetaminophen < 15 mcg/mL
[2020-06-07 08:36] LABS: Urine Appearance Cloudy; Urine Bilirubin Negative (Negative); Urine Blood Negative (Negative); Urine Color Yellow; Urine Glucose Negative (Negative); Urine Ketones Negative (Negative); Urine Nitrite Positive (Negative); Urine Protein 2+(100 mg/dL) (Negative); Urine Specific Gravity 1.014 (1.010-1.030); Urine Urobilinogen Negative (Negative)
[2020-06-07 08:55] LABS: Urine Benzodiazepine Screen None Detected (None Detect); Urine Cannabinoids Screen None Detected (None Detect); Urine Opiates Screen None Detected (None Detect)
[2020-06-07 09:29] LABS: Urine Bacteria 1+ (Absent); Urine Red Blood Cell Trace(0-2/hpf) (Absent); Urine Squamous Epithelial Cell Present (Absent); Urine White Blood Cell 3+(>20/hpf) (Absent)
[2020-06-07] MEDS ORDERED: Lactated Ringers 1000 ml BAG 1,000 ML IV ONE ×2 (10:00→13:00)
[2020-06-07] MEDS ORDERED: Iohexol 300 (CONTRAST) 10 ML SDV IV ONE (10:10)
[2020-06-07] MEDS ORDERED: Ondansetron 4 mg VIAL 2 MG/ML 2 ml VIAL IV PRN (10:43)
[2020-06-07] MEDS ORDERED: NS 0.9% 1000 ml BAG 1,000 ML IV SCH (10:45)
[2020-06-07] MEDS: KCL 20 MEQ/100 ML IVPREMIX 20 MEQ/100 ML BAG IV SCH ×2 (10:51→16:00)
[2020-06-07] MEDS ORDERED: Prochlorperazine 5 mg/ml 2 ml VIAL (10 mg) IV ONE (11:06)
[2020-06-07] MEDS ORDERED: diPHENhydraMINE IV 50 MG/ML 1 ml VIAL (BENADRYL) IV ONE (11:09)
[2020-06-07] MEDS ORDERED: LORazepam 2 mg VIAL 1 ml IV PUSH ONE ×2 (11:12→21:21)
[2020-06-07] MEDS ORDERED: Lorazepam PYXIS KEY PRN ×2 (11:12→21:21)
[2020-06-07 11:23] LABS: Magnesium 1.2 mg/dL (1.9-2.7)
[2020-06-07] MEDS ORDERED: Magnesium Sulf 4 GM/100 ML IV 4,000 MG/100 ML BAG IVPB ONE (11:25)
[2020-06-07] MEDS ORDERED: LoraTADine 10 mg TAB (NF) PO PRN (11:38)
[2020-06-07 12:39] LABS: Phosphorus 4.5 mg/dL (2.5-5.0)
[2020-06-07 12:41] LABS: Alcohol, S 37 mg/dL (<10)
[2020-06-07] MEDS ORDERED: Buprenorp/Nalox 8-2 MG FILM SL FILM SCH (14:00)
[2020-06-07] MEDS: Nicotine GUM 2MG FRUIT FLAVOR PO PRN (14:22)
[2020-06-07] MEDS: NS 0.9% 1000 ml BAG 1,000 ML IV SCH (14:31)
[2020-06-07] MEDS ORDERED: Morphine 2 MG/ML SYRINGE IV ONE (18:05)
[2020-06-07] MEDS: Buprenorp/Nalox 4-1 MG FILM SL FILM SCH (20:02)
[2020-06-07] MEDS: Potassium Chlor 20 meq TAB.ER PO SCH (21:20)
[2020-06-08] MEDS ORDERED: Lorazepam PYXIS KEY PRN (00:32)
[2020-06-08] MEDS ORDERED: LORazepam 2 mg VIAL 1 ml IV PUSH ONE (00:32)
[2020-06-08] MEDS: Buprenorp/Nalox 4-1 MG FILM SL FILM SCH ×5 (02:52→22:57)
[2020-06-08 06:47] LABS: ABS Monocytes 0.7 10^3/ul (0-0.8); ABS Neutrophils 11.9 10^3/ul (1.5-7.7); Eosinophil % 0.1 %; Hematocrit 30 % (35-47); Hemoglobin 10.3 g/dL (12.0-16.0); Mean Corpuscular HGB Conc 35 g/dL (31-36); Mean Corpuscular Hemoglobin 34 pg (27-31); Mean Corpuscular Volume 97 fL (80-97); Mean Platelet Volume 6.9 fL (7.4-10.4); Platelet Count 116 10^3/uL (150-450); Red Blood Count 3.05 10^6 /uL (3.70-4.87); Red Cell Distribution Width 13 % (10-15); White Blood Count 13.6 10^3/uL (3.5-10.8)
[2020-06-08 07:11] LABS: Albumin 2.6 g/dL (3.2-5.2); BUN/Creatinine Ratio 12.9 (8-20); Calcium 7.6 mg/dL (8.6-10.3); EGFR African American 139.7 (>60); EGFR Non-African American 115.5 (>60); Globulin 2.7 g/dL (2-4); Total Bilirubin 0.8 mg/dL (0.2-1.0); Total Protein 5.3 g/dL (6.4-8.9)
[2020-06-08] MEDS: cefTRIAXone 1 gm/50 mL NS BAG 1 GM/50 ML BAG IVPB SCH (07:39)
[2020-06-08] MEDS: Potassium Chlor 20 meq TAB.ER PO SCH ×2 (09:19→22:56)
[2020-06-08] MEDS: Multivitamins/Minerals TAB PO SCH (09:19)
[2020-06-08] MEDS ORDERED: Lactated Ringers 1000 ml BAG 500 ML IV ONE (10:00)
[2020-06-08] MEDS ORDERED: Lactated Ringers 1000 ml BAG 1,000 ML IV ONE (13:00)
[2020-06-08] MEDS: NS 0.9% 1000 ml BAG 1,000 ML IV SCH ×2 (14:17→23:31)
[2020-06-09 07:08] LABS: ABS Neutrophils 12.2 10^3/ul (1.5-7.7); Eosinophil % 0.1 %; Hematocrit 29 % (35-47); Lymphocyte % 7.3 %; Mean Corpuscular HGB Conc 35 g/dL (31-36); Mean Corpuscular Hemoglobin 34 pg (27-31); Mean Corpuscular Volume 98 fL (80-97); Mean Platelet Volume 8.5 fL (7.4-10.4); Platelet Count 110 10^3/uL (150-450); Red Blood Count 2.97 10^6 /uL (3.70-4.87); Red Cell Distribution Width 14 % (10-15); White Blood Count 14.2 10^3/uL (3.5-10.8)
[2020-06-09 07:23] LABS: BUN/Creatinine Ratio 13.6 (8-20); Calcium 7.8 mg/dL (8.6-10.3); EGFR African American 147.9 (>60); EGFR Non-African American 122.3 (>60)
[2020-06-09] MEDS: NS 0.9% 1000 ml BAG 1,000 ML IV SCH ×2 (08:01→19:32)
[2020-06-09] MEDS: cefTRIAXone 1 gm/50 mL NS BAG 1 GM/50 ML BAG IVPB SCH (08:56)
[2020-06-09] MEDS: Buprenorp/Nalox 4-1 MG FILM SL FILM SCH ×3 (09:17→21:52)
[2020-06-09] MEDS: Multivitamins/Minerals TAB PO SCH (09:18)
[2020-06-09] MEDS: Potassium Chlor 20 meq TAB.ER PO SCH ×2 (09:18→21:49)
[2020-06-09] MEDS: Nicotine GUM 2MG FRUIT FLAVOR PO PRN (12:03)
[2020-06-10] MEDS: NS 0.9% 1000 ml BAG 1,000 ML IV SCH (03:43)
[2020-06-10] MEDS: cefTRIAXone 1 gm/50 mL NS BAG 1 GM/50 ML BAG IVPB SCH (07:45)
[2020-06-10] MEDS: Multivitamins/Minerals TAB PO SCH (07:58)
[2020-06-10] MEDS: Potassium Chlor 20 meq TAB.ER PO SCH (07:58)
[2020-06-10] MEDS: Buprenorp/Nalox 4-1 MG FILM SL FILM SCH (07:58)
[2020-06-10 10:37] VITALS: BP 148/95
[2020-06-10 16:13] LABS: Urine Collection Duration 24 h
== END 2020-06-10 10:40 | disposition home or self-care (01) | DRG 872 ==
LOC: ED 06:40 → MED 06:40
PROVIDERS: ADMIT Internal Medicine; ATTEND Student in an Organized Health Care Education/Training Program

== ENCOUNTER 2020-06-28 06:52 | Observation (INO) ==
[2020-06-28] MEDS ORDERED: NS 0.9% 1000 ml BAG 1,000 ML IV.FLUID IV ONE (07:09)
[2020-06-28] MEDS ORDERED: Piperacillin/Tazobac ADVAN 3.375 GM in NS 0.9% 100 ml BAG 100 ML IVPB ONE (07:09)
[2020-06-28] MEDS ORDERED: Lorazepam PYXIS KEY PRN ×2 (07:13→07:54)
[2020-06-28] MEDS ORDERED: LORazepam 2 mg VIAL 1 ml IV PUSH ONE ×2 (07:13→07:54)
[2020-06-28] MEDS ORDERED: Lorazepam PYXIS KEY ONE (07:16)
[2020-06-28 07:23] LABS: ABS Lymphocytes 1.5 10^3/ul (1.0-4.8); ABS Monocytes 0.6 10^3/ul (0-0.8); Eosinophil % 0.1 %; Hematocrit 39 % (35-47); Hemoglobin 13.8 g/dL (12.0-16.0); Lymphocyte % 18.5 %; Mean Corpuscular HGB Conc 35 g/dL (31-36); Mean Corpuscular Hemoglobin 33 pg (27-31); Mean Corpuscular Volume 94 fL (80-97); Mean Platelet Volume 6.8 fL (7.4-10.4); Platelet Count 321 10^3/uL (150-450); Red Blood Count 4.22 10^6 /uL (3.70-4.87); Red Cell Distribution Width 13 % (10-15); White Blood Count 8.2 10^3/uL (3.5-10.8)
[2020-06-28 07:32] LABS: Activated Partial Thrombo Time 32.3 seconds (26.0-38.0); INR 1.06 (0.82-1.09)
[2020-06-28 07:40] LABS: ALT 32 U/L (7-52); AST 81 U/L (13-39); Albumin 4.1 g/dL (3.2-5.2); Albumin/Globulin Ratio 1.1 (1-3); Alkaline Phosphatase 229 U/L (34-104); Anion Gap 21 mmol/L (2-11); BUN/Creatinine Ratio 9.6 (8-20); Blood Urea Nitrogen 8 mg/dL (6-24); C Reactive Protein < 1.00 mg/L (<8.01); CO2 Carbon Dioxide 23 mmol/L (22-32); Calcium 9.4 mg/dL (8.6-10.3); Chloride 92 mmol/L (101-111); Creatine Kinase 42 U/L (10-223); EGFR Non-African American 81.9 (>60); Globulin 3.9 g/dL (2-4); Glucose 86 mg/dL (70-100); Potassium 3.2 mmol/L (3.5-5.0); Sodium 136 mmol/L (135-145)
[2020-06-28 07:42] LABS: Troponin I 0.01 ng/mL (<0.03)
[2020-06-28] MEDS ORDERED: Vancomycin 750 MG in NS 0.9% 250 ml 250 ML IVPB ONE (08:00)
[2020-06-28] MEDS ORDERED: Thiamine 100 MG/ML 2 ml VIAL (200 mg) IM ONE (09:14)
[2020-06-28 09:23] LABS: Magnesium 1.6 mg/dL (1.9-2.7)
[2020-06-28] MEDS: LORazepam 2 mg VIAL 1 ml IV PUSH SCH ×5 (09:27→23:30)
[2020-06-28] MEDS: Multivitamins/Minerals TAB PO SCH (10:23)
[2020-06-28] MEDS ORDERED: Iohexol 350 (CONTRAST) 500 ML MDV IV ONE (11:07)
[2020-06-28] MEDS ORDERED: Potassium Chlor 20 meq TAB.ER PO ONE (12:15)
[2020-06-28] MEDS ORDERED: Magnesium Sulfate IV 3 GM in NS 0.9% 100 ml BAG 100 ML IVPB ONE (12:15)
[2020-06-28] MEDS ORDERED: Ondansetron 4 mg VIAL 2 MG/ML 2 ml VIAL ONE (12:23)
[2020-06-28] MEDS ORDERED: Ondansetron 4 mg VIAL 2 MG/ML 2 ml VIAL IV ONE (12:23)
[2020-06-28 13:10] LABS: Urine Appearance Cloudy; Urine Bilirubin Negative (Negative); Urine Blood Negative (Negative); Urine Color Yellow; Urine Glucose Negative (Negative); Urine Ketones Trace (Negative); Urine Nitrite Negative (Negative); Urine Protein Negative (Negative); Urine Urobilinogen Negative (Negative)
[2020-06-28 14:15] LABS: Urine Bacteria Absent (Absent); Urine Red Blood Cell Absent (Absent); Urine Squamous Epithelial Cell Present (Absent); Urine White Blood Cell 3+(>20/hpf) (Absent)
[2020-06-28] MEDS: NS 0.9% 1000 ml BAG 1,000 ML IV SCH ×2 (15:10→23:37)
[2020-06-28] MEDS: Nicotine GUM 4MG FRUIT FLAVOR PO PRN (21:55)
[2020-06-29] MEDS: Buprenorp/Nalox 8-2 MG FILM SL FILM SCH ×2 (00:08→12:04)
[2020-06-29] MEDS: Nicotine GUM 4MG FRUIT FLAVOR PO PRN (03:13)
[2020-06-29] MEDS: LORazepam 2 mg VIAL 1 ml IV PUSH SCH ×3 (03:13→14:59)
[2020-06-29 04:22] LABS: ABS Eosinophils 0.1 10^3/ul (0-0.6); ABS Monocytes 0.4 10^3/ul (0-0.8); ABS Neutrophils 3.7 10^3/ul (1.5-7.7); Eosinophil % 1.3 %; Hematocrit 32 % (35-47); Hemoglobin 11.1 g/dL (12.0-16.0); Lymphocyte % 19.7 %; Mean Corpuscular HGB Conc 35 g/dL (31-36); Mean Corpuscular Hemoglobin 33 pg (27-31); Mean Corpuscular Volume 96 fL (80-97); Mean Platelet Volume 6.8 fL (7.4-10.4); Platelet Count 178 10^3/uL (150-450); Red Blood Count 3.32 10^6 /uL (3.70-4.87); Red Cell Distribution Width 13 % (10-15); White Blood Count 5.2 10^3/uL (3.5-10.8)
[2020-06-29 04:38] LABS: EGFR African American 90.2 (>60); EGFR Non-African American 74.6 (>60); Potassium 4.1 mmol/L (3.5-5.0)
[2020-06-29] MEDS ORDERED: Buprenorp/Nalox 8-2 MG FILM SL FILM SCH ×2 (09:00→12:00)
[2020-06-29] MEDS ORDERED: Buprenorp/Nalox 4-1 MG FILM SL FILM SCH (09:00)
[2020-06-29] MEDS ORDERED: MAGNESIUM 250 MG PO SCH (09:00)
[2020-06-29] MEDS ORDERED: Nicotine PATCH 21 MG/24 HR PATCH TRANSDERM SCH (09:00)
[2020-06-29] MEDS ORDERED: Potassium Chlor 20 meq TAB.ER PO SCH (09:00)
[2020-06-29] MEDS: Multivitamins/Minerals TAB PO SCH (09:52)
[2020-06-29] MEDS: NS 0.9% 1000 ml BAG 1,000 ML IV SCH (10:57)
[2020-06-29] MEDS ORDERED: Famotidine IV 10 MG/ML 2 ml VIAL (20 mg) IV SLOW PU ONE (11:54)
[2020-06-29 12:53] LABS: Urine Benzodiazepine Screen None Detected (None Detect); Urine Buprenorphine Screen Presumptive Positive (None Detect); Urine Cannabinoids Screen None Detected (None Detect); Urine Fentanyl Screen None Detected (None Detect); Urine Hydrocodone Screen None Detected (None Detect); Urine Opiates Screen None Detected (None Detect)
[2020-06-29 16:01] VITALS: BP 156/112
== END 2020-06-29 17:31 | disposition home or self-care (01) ==
LOC: MEDTELE 06:52 → ED 06:52 → MEDTELE 14:40
PROVIDERS: ADMIT Hospitalist; ATTEND Student in an Organized Health Care Education/Training Program

== ENCOUNTER 2020-11-05 19:29 | Inpatient (IN) ==
[2020-11-05] MEDS ORDERED: NS 0.9% 1000 ml BAG 1,000 ML IV.FLUID IV ONE (20:27)
[2020-11-05] MEDS ORDERED: Cefepime 2 GM in NS 0.9% 50 ML 50 ML IVPB ONE (20:27)
[2020-11-05 20:53] LABS: ABS Basophils 0.1 10^3/ul (0-0.2); ABS Eosinophils 0.1 10^3/ul (0-0.6); ABS Lymphocytes 2.2 10^3/ul (1.0-4.8); ABS Monocytes 0.4 10^3/ul (0-0.8); ABS Neutrophils 2.5 10^3/ul (1.5-7.7); Eosinophil % 2.2 %; Hematocrit 35 % (35-47); Hemoglobin 11.9 g/dL (12.0-16.0); Lymphocyte % 40.5 %; Mean Corpuscular HGB Conc 34 g/dL (31-36); Mean Corpuscular Hemoglobin 32 pg (27-31); Mean Corpuscular Volume 94 fL (80-97); Mean Platelet Volume 6.6 fL (7.4-10.4); Platelet Count 344 10^3/uL (150-450); Red Blood Count 3.69 10^6 /uL (3.70-4.87); Red Cell Distribution Width 13 % (10-15); White Blood Count 5.3 10^3/uL (3.5-10.8)
[2020-11-05] MEDS ORDERED: Vancomycin 750 MG in NS 0.9% 250 ml 250 ML IVPB ONE (21:00)
[2020-11-05] MEDS ORDERED: Ondansetron 4 mg VIAL 2 MG/ML 2 ml VIAL IV ONE (21:00)
[2020-11-05 21:02] LABS: Activated Partial Thrombo Time 38.6 seconds (26.0-38.0); INR 1.01 (0.82-1.09)
[2020-11-05 21:11] LABS: ALT 13 U/L (7-52); AST 28 U/L (13-39); Albumin 3.6 g/dL (3.2-5.2); Alkaline Phosphatase 200 U/L (34-104); Anion Gap 8 mmol/L (2-11); BUN/Creatinine Ratio 7.1 (8-20); Blood Urea Nitrogen 7 mg/dL (6-24); C Reactive Protein 9.09 mg/L (<8.01); CO2 Carbon Dioxide 23 mmol/L (22-32); Calcium 8.9 mg/dL (8.6-10.3); Chloride 100 mmol/L (101-111); EGFR African American 80.8 (>60); EGFR Non-African American 66.8 (>60); Globulin 3.7 g/dL (2-4); Glucose 85 mg/dL (70-100); Potassium 3.7 mmol/L (3.5-5.0); Sodium 131 mmol/L (135-145); Total Protein 7.3 g/dL (6.4-8.9)
[2020-11-05] MEDS ORDERED: LORazepam 2 mg VIAL 1 ml IV PUSH ONE (21:12)
[2020-11-05] MEDS ORDERED: Lorazepam PYXIS KEY PRN (21:12)
[2020-11-05] MEDS ORDERED: Iohexol 300 (CONTRAST) 10 ML SDV IV ONE (21:22)
[2020-11-05 21:42] LABS: Alcohol, S 159 mg/dL (<10)
[2020-11-05 21:48] LABS: Urine Appearance Cloudy; Urine Bilirubin Negative (Negative); Urine Blood Negative (Negative); Urine Color Straw; Urine Glucose Negative (Negative); Urine Ketones Negative (Negative); Urine Nitrite Negative (Negative); Urine Protein Negative (Negative); Urine Specific Gravity 1.003 (1.010-1.030); Urine Urobilinogen Negative (Negative)
[2020-11-05] MEDS ORDERED: Cefepime 2 GM IV - ED ONCE IV ONE (22:00)
[2020-11-05] MEDS ORDERED: Vancomycin per Pharmacy 1 EA NOTE FOLLOW UP SCH (23:00)
[2020-11-05 23:41] LABS: Magnesium 1.8 mg/dL (1.9-2.7)
[2020-11-05] MEDS ORDERED: LORazepam 2 mg VIAL 1 ml IV PUSH SCH (23:45)
[2020-11-06] MEDS ORDERED: Thiamine 100 MG/ML 2 ml VIAL 100 MG, Folic Acid 1 MG, Multiple Vitamin IV ADULT 10 ML i... IV ONE
[2020-11-06] MEDS: Ondansetron 4 mg VIAL 2 MG/ML 2 ml VIAL IV PRN ×3 (01:53→22:16)
[2020-11-06 02:24] LABS: % Iron Saturation 46 % (15-55); Iron 143 ug/dL (50-212); Total Iron Binding Capacity 308 mcg/dL (250-450); Transferrin 220 mg/dL (203-362); Unsaturated Iron Binding < 293 ug/dL
[2020-11-06 02:44] LABS: Ferritin 48.2 ng/mL (11-307)
[2020-11-06 05:15] LABS: ABS Basophils 0.1 10^3/ul (0-0.2); ABS Eosinophils 0.1 10^3/ul (0-0.6); ABS Lymphocytes 1.9 10^3/ul (1.0-4.8); ABS Monocytes 0.3 10^3/ul (0-0.8); Eosinophil % 3.9 %; Hematocrit 35 % (35-47); Hemoglobin 11.4 g/dL (12.0-16.0); Mean Corpuscular HGB Conc 33 g/dL (31-36); Mean Corpuscular Hemoglobin 32 pg (27-31); Mean Corpuscular Volume 98 fL (80-97); Mean Platelet Volume 7.1 fL (7.4-10.4); Nucleated Red Blood Cells % 0.1; Platelet Count 314 10^3/uL (150-450); Red Blood Count 3.59 10^6 /uL (3.70-4.87); Red Cell Distribution Width 13 % (10-15); White Blood Count 3.4 10^3/uL (3.5-10.8)
[2020-11-06 05:29] LABS: BUN/Creatinine Ratio 7.8 (8-20); C Reactive Protein 6.14 mg/L (<8.01); EGFR African American 90.2 (>60); EGFR Non-African American 74.6 (>60); Potassium 4.4 mmol/L (3.5-5.0)
[2020-11-06] MEDS: Vancomycin 750 MG in NS 0.9% 250 ML IVPB SCH ×3 (06:05→21:11)
[2020-11-06] MEDS: Multivitamins/Minerals TAB PO SCH (08:44)
[2020-11-06] MEDS: Buprenorp/Nalox 8-2 MG FILM SL FILM SCH ×2 (08:44→21:14)
[2020-11-06] MEDS: Nicotine PATCH 21 MG/24 HR PATCH TRANSDERM SCH (08:45)
[2020-11-06] MEDS: Potassium Chlor 20 meq TAB.ER PO SCH (08:45)
[2020-11-06 08:46] LABS: Magnesium 1.7 mg/dL (1.9-2.7)
[2020-11-06] MEDS: Mupirocin 2% OINT TUBE TOPICAL SCH ×3 (08:46→21:11)
[2020-11-06] MEDS ORDERED: LORazepam 2 mg VIAL 1 ml IV PUSH SCH (09:40)
[2020-11-07] MEDS: Vancomycin 750 MG in NS 0.9% 250 ML IVPB SCH ×2 (05:57→15:43)
[2020-11-07 06:02] LABS: ABS Eosinophils 0.2 10^3/ul (0-0.6); ABS Lymphocytes 1.6 10^3/ul (1.0-4.8); ABS Monocytes 0.4 10^3/ul (0-0.8); Eosinophil % 4.1 %; Hematocrit 33 % (35-47); Hemoglobin 11.2 g/dL (12.0-16.0); Mean Corpuscular HGB Conc 34 g/dL (31-36); Mean Corpuscular Hemoglobin 33 pg (27-31); Mean Corpuscular Volume 96 fL (80-97); Mean Platelet Volume 6.7 fL (7.4-10.4); Nucleated Red Blood Cells % 0.1; Platelet Count 294 10^3/uL (150-450); Red Blood Count 3.42 10^6 /uL (3.70-4.87); Red Cell Distribution Width 13 % (10-15); White Blood Count 4.3 10^3/uL (3.5-10.8)
[2020-11-07] MEDS ORDERED: Magnesium Sulfate 2 gm BAG 2 GM/50 ML BAG IVPB ONE (07:40)
[2020-11-07] MEDS: Nicotine PATCH 21 MG/24 HR PATCH TRANSDERM SCH (08:08)
[2020-11-07] MEDS: Multivitamins/Minerals TAB PO SCH (08:11)
[2020-11-07] MEDS: Buprenorp/Nalox 8-2 MG FILM SL FILM SCH (08:11)
[2020-11-07] MEDS: Potassium Chlor 20 meq TAB.ER PO SCH (08:11)
[2020-11-07] MEDS: Mupirocin 2% OINT TUBE TOPICAL SCH ×2 (08:48→14:15)
[2020-11-07] MEDS: Ondansetron 4 mg VIAL 2 MG/ML 2 ml VIAL IV PRN (10:37)
[2020-11-07] MEDS ORDERED: Vancomycin Trough Check NOTE FOLLOW UP ONE (12:30)
[2020-11-07 16:31] VITALS: BP 112/73
== END 2020-11-07 16:32 | disposition home or self-care (01) ==
LOC: SSU 19:29 → ED 19:29 → SSU 23:25
PROVIDERS: ADMIT Internal Medicine; ATTEND Internal Medicine

== ENCOUNTER 2021-03-24 16:51 | Inpatient (IN) ==
[2021-03-24] MEDS ORDERED: Naloxone 0.4 mg VIAL 0.4 mg/ml 1 ml VIAL ONE (17:02)
[2021-03-24] MEDS ORDERED: Naloxone Nasal Spray 4 MG/0.1 ML NASAL.SPR INTRANASAL ONE (17:02)
[2021-03-24] MEDS ORDERED: Naloxone 0.4 mg VIAL 0.4 mg/ml 1 ml VIAL IV PUSH ONE ×2 (17:06→17:33)
[2021-03-24 17:23] LABS: ABS Basophils 0.1 10^3/ul (0-0.2); ABS Eosinophils 0.1 10^3/ul (0-0.6); ABS Lymphocytes 2.9 10^3/ul (1.0-4.8); ABS Monocytes 0.3 10^3/ul (0-0.8); ABS Neutrophils 3.8 10^3/ul (1.5-7.7); Eosinophil % 1.4 %; Hematocrit 44 % (35-47); Lymphocyte % 40.6 %; Mean Corpuscular HGB Conc 34 g/dL (31-36); Mean Corpuscular Hemoglobin 31 pg (27-31); Mean Corpuscular Volume 91 fL (80-97); Mean Platelet Volume 7.3 fL (7.4-10.4); Platelet Count 373 10^3/uL (150-450); Red Blood Count 4.79 10^6 /uL (3.70-4.87); Red Cell Distribution Width 14 % (10-15); White Blood Count 7.2 10^3/uL (3.5-10.8)
[2021-03-24 17:39] LABS: ALT 13 U/L (7-52); AST 22 U/L (13-39); Albumin 4.3 g/dL (3.2-5.2); Albumin/Globulin Ratio 1.3 (1-3); Alkaline Phosphatase 170 U/L (35-149); Anion Gap 10 mmol/L (2-11); Blood Urea Nitrogen 9 mg/dL (6-24); CO2 Carbon Dioxide 27 mmol/L (22-32); Calcium 8.8 mg/dL (8.6-10.3); Chloride 103 mmol/L (101-111); EGFR Non-African American 81.9 (>60); Globulin 3.3 g/dL (2-4); Glucose 99 mg/dL (70-100); Potassium 3.1 mmol/L (3.5-5.0); Sodium 140 mmol/L (135-145); Total Protein 7.6 g/dL (6.4-8.9)
[2021-03-24 17:39] LABS: Urine Appearance Clear; Urine Bilirubin Negative (Negative); Urine Blood Negative (Negative); Urine Color Straw; Urine Glucose Negative (Negative); Urine Ketones Negative (Negative); Urine Nitrite Negative (Negative); Urine Protein Negative (Negative); Urine Specific Gravity 1.004 (1.002-1.030); Urine Urobilinogen Negative (Negative)
[2021-03-24 17:45] LABS: HCG Pregnancy < 0.60 mIU/mL
[2021-03-24 17:49] LABS: Urine Benzodiazepine Screen None Detected (None Detect); Urine Cannabinoids Screen None Detected (None Detect); Urine Opiates Screen None Detected (None Detect)
[2021-03-24] MEDS ORDERED: Naloxone 0.4 mg VIAL 2 MG in NS 0.9% 250 ml 245 ML IV SCH (18:00)
[2021-03-24] MEDS ORDERED: NALOXONE DRIP for Opiate Reversal - ED ONLY IV ONE (18:00)
[2021-03-24 18:02] LABS: Creatine Kinase 52 U/L (10-223)
[2021-03-24 18:09] LABS: Acetaminophen < 15 mcg/mL; Salicylate < 2.50 mg/dL (<30)
[2021-03-24 18:23] LABS: TSH Ultra Thyroid Stim Horm 1.78 mcIU/mL (0.34-5.60)
[2021-03-24] MEDS ORDERED: NS 0.9% 1000 ml BAG 1,000 ML IV SCH (20:30)
[2021-03-24] MEDS ORDERED: Ondansetron 4 mg VIAL 2 MG/ML 2 ml VIAL IV PRN (20:41)
[2021-03-24 21:36] LABS: Alcohol, S 325 mg/dL (<10)
[2021-03-24] MEDS: KCL 20 MEQ/100 ML IVPREMIX 20 MEQ/100 ML BAG IV SCH ×2 (21:45→23:43)
[2021-03-24] MEDS: NALOXONE DRIP for Opiate Reversal - ED ONLY IV SCH (22:17)
[2021-03-25] MEDS: NALOXONE DRIP for Opiate Reversal - ED ONLY IV SCH ×2 (01:49→05:28)
[2021-03-25] MEDS ORDERED: LORazepam 2 mg VIAL 1 ml IV PUSH ONE (02:28)
[2021-03-25] MEDS ORDERED: Lorazepam PYXIS KEY PRN (02:28)
[2021-03-25] MEDS: KCL 20 MEQ/100 ML IVPREMIX 20 MEQ/100 ML BAG IV SCH (03:08)
[2021-03-25 04:58] LABS: ABS Lymphocytes 2.1 10^3/ul (1.0-4.8); ABS Monocytes 0.3 10^3/ul (0-0.8); ABS Neutrophils 3.9 10^3/ul (1.5-7.7); Eosinophil % 0.3 %; Hematocrit 37 % (35-47); Hemoglobin 12.4 g/dL (12.0-16.0); Lymphocyte % 33.1 %; Mean Corpuscular HGB Conc 33 g/dL (31-36); Mean Corpuscular Hemoglobin 31 pg (27-31); Mean Corpuscular Volume 92 fL (80-97); Mean Platelet Volume 7.2 fL (7.4-10.4); Platelet Count 334 10^3/uL (150-450); Red Blood Count 4.05 10^6 /uL (3.70-4.87); Red Cell Distribution Width 14 % (10-15); White Blood Count 6.4 10^3/uL (3.5-10.8)
[2021-03-25 05:19] LABS: Albumin 3.6 g/dL (3.2-5.2); Albumin/Globulin Ratio 1.4 (1-3); Calcium 8.5 mg/dL (8.6-10.3); EGFR African American 122.6 (>60); EGFR Non-African American 101.3 (>60); Globulin 2.6 g/dL (2-4); Magnesium 1.5 mg/dL (1.9-2.7); Potassium 4.2 mmol/L (3.5-5.0); Total Bilirubin 0.3 mg/dL (0.2-1.0); Total Protein 6.2 g/dL (6.4-8.9)
[2021-03-25] MEDS ORDERED: Ondansetron ODT 4 mg TAB 4 MG TAB SL PRN (05:25)
[2021-03-25] MEDS ORDERED: LORazepam 2 mg VIAL 1 ml IV PUSH SCH (06:00)
[2021-03-25] MEDS ORDERED: Magnesium Sulf 4 GM/100 ML IV 4,000 MG/100 ML BAG IVPB ONE (07:51)
[2021-03-25] MEDS ORDERED: Lactated Ringers 1000 ml BAG 1,000 ML IV SCH (08:00)
[2021-03-25 08:41] LABS: Phosphorus 1.8 mg/dL (2.5-5.0)
[2021-03-25] MEDS ORDERED: Multivitamins/Minerals TAB PO SCH (09:00)
[2021-03-25] MEDS ORDERED: Potassium Chloride LIQUID 20 MEQ/15 ML LIQUID PO SCH (09:00)
[2021-03-25] MEDS ORDERED: Buprenorp/Nalox 8-2 MG FILM SL FILM SCH ×2 (09:42→14:00)
[2021-03-25 11:00] VITALS: BP 118/73
== END 2021-03-25 11:32 | disposition home or self-care (01) | DRG 897 ==
LOC: ED 16:51 → ICU 20:41
PROVIDERS: ADMIT Internal Medicine; ATTEND Internal Medicine Critical Care Medicine

== ENCOUNTER 2021-10-24 08:30 | Inpatient (IN) ==
[2021-10-24] MEDS ORDERED: Al Hydrox/Mg Hydrox/Simet LIQ 30 ML UDC PO ONE (08:49)
[2021-10-24] MEDS ORDERED: diPHENhydraMINE IV 50 MG/ML 1 ml VIAL (BENADRYL) IV ONE (08:49)
[2021-10-24] MEDS ORDERED: Metoclopramide 5 MG/ML VIAL (10 mg) IV ONE (08:49)
[2021-10-24] MEDS ORDERED: Famotidine IV 10 MG/ML 2 ml VIAL (20 mg) IV SLOW PU ONE (08:49)
[2021-10-24 09:14] LABS: ABS Eosinophils 0.1 10^3/ul (0-0.6); ABS Lymphocytes 2.3 10^3/ul (1.0-4.8); ABS Neutrophils 7.3 10^3/ul (1.5-7.7); Eosinophil % 1.1 %; Hematocrit 36 % (35-47); Lymphocyte % 21.5 %; Mean Corpuscular HGB Conc 36 g/dL (31-36); Mean Corpuscular Hemoglobin 32 pg (27-31); Mean Corpuscular Volume 91 fL (80-97); Mean Platelet Volume 7.3 fL (7.4-10.4); Platelet Count 471 10^3/uL (150-450); Red Blood Count 4.02 10^6 /uL (3.70-4.87); Red Cell Distribution Width 14 % (10-15); White Blood Count 10.7 10^3/uL (3.5-10.8)
[2021-10-24 09:34] LABS: ALT 11 U/L (7-52); AST 17 U/L (13-39); Albumin 3.6 g/dL (3.2-5.2); Albumin/Globulin Ratio 1.1 (1-3); Alkaline Phosphatase 140 U/L (35-149); Blood Urea Nitrogen 5 mg/dL (6-24); Calcium 9.6 mg/dL (8.6-10.3); Chloride 67 mmol/L (101-111); Creatine Kinase 39 U/L (10-223); Globulin 3.2 g/dL (2-4); Glucose 92 mg/dL (70-100); INR 1.2 (0.86-1.15); Magnesium 1.7 mg/dL (1.9-2.7); Sodium 129 mmol/L (135-145); Total Protein 6.8 g/dL (6.4-8.9); eGFR CKD-EPI 110.5 (>60)
[2021-10-24 09:35] LABS: Troponin I 0.01 ng/mL (<0.03)
[2021-10-24 09:39] LABS: HCG Pregnancy < 0.60 mIU/mL
[2021-10-24 11:03] LABS: CO2 Carbon Dioxide 51 mmol/L (22-32); Potassium 1.9 mmol/L (3.5-5.0)
[2021-10-24] MEDS ORDERED: KCL 20 MEQ/100 ML IVPREMIX 20 MEQ/100 ML BAG ONE (11:15)
[2021-10-24] MEDS: KCL 20 MEQ/100 ML IVPREMIX 20 MEQ/100 ML BAG IV SCH ×3 (11:23→19:03)
[2021-10-24] MEDS ORDERED: Potassium Chlor 20 meq TAB.ER PO ONE ×3 (11:33→15:43)
[2021-10-24 11:47] LABS: PCO2 Arterial 62 mmHg (35-45); PO2 Arterial 74 mmHg (80-100)
[2021-10-24] MEDS ORDERED: Lactated Ringers 1000 ml BAG 1,000 ML IV ONE (11:52)
[2021-10-24 13:51] LABS: Phosphorus 2.5 mg/dL (2.5-5.0)
[2021-10-24] MEDS ORDERED: Morphine 4 MG/ML VIAL (1 ml) IV ONE (14:25)
[2021-10-24] MEDS ORDERED: Nicotine GUM 4MG FRUIT FLAVOR PO PRN (15:29)
[2021-10-24] MEDS ORDERED: NS 0.9% 1000 ml BAG 1,000 ML IV SCH (15:30)
[2021-10-24] MEDS ORDERED: cefTRIAXone 1 gm/50 mL NS BAG 1 GM/50 ML BAG IV ONE (15:39)
[2021-10-24] MEDS ORDERED: Magnesium Sulfate IV 3 GM in NS 0.9% 100 ml BAG 100 ML IVPB ONE (15:39)
[2021-10-24] MEDS ORDERED: LORazepam 2 mg VIAL 1 ml IV PUSH PRN (17:18)
[2021-10-24] MEDS ORDERED: Lorazepam PYXIS KEY PRN (17:18)
[2021-10-24] MEDS: Nicotine PATCH 14 MG/24 HR PATCH TRANSDERM SCH (18:48)
[2021-10-24 19:04] LABS: Blood Urea Nitrogen 6 mg/dL (6-24); Calcium 9.3 mg/dL (8.6-10.3); Chloride 80 mmol/L (101-111); Glucose 93 mg/dL (70-100); Sodium 135 mmol/L (135-145); eGFR CKD-EPI 68.3 (>60)
[2021-10-24] MEDS: Lidocaine PATCH 5% PATCH TRANSDERM SCH (19:06)
[2021-10-24 19:12] LABS: Potassium 2.5 mmol/L (3.5-5.0)
[2021-10-24 19:53] LABS: CO2 Carbon Dioxide 49 mmol/L (22-32)
[2021-10-24] MEDS: Mupirocin 2% OINT TUBE TOPICAL SCH ×2 (19:58→22:16)
[2021-10-24] MEDS ORDERED: Buprenorp/Nalox 8-2 MG FILM SL FILM SCH (21:00)
[2021-10-25 00:05] LABS: Blood Urea Nitrogen 10 mg/dL (6-24); Calcium 8.1 mg/dL (8.6-10.3); Chloride 89 mmol/L (101-111); Glucose 126 mg/dL (70-100); Sodium 137 mmol/L (135-145); eGFR CKD-EPI 92.4 (>60)
[2021-10-25 00:35] LABS: CO2 Carbon Dioxide 46 mmol/L (22-32)
[2021-10-25] MEDS ORDERED: Potassium Chlor 20 meq TAB.ER PO ONE ×3 (00:38→08:41)
[2021-10-25 01:05] LABS: Urine Benzodiazepine Screen None Detected (None Detect); Urine Cannabinoids Screen None Detected (None Detect); Urine Opiates Screen Presumptive Positive (None Detect)
[2021-10-25] MEDS: Lidocaine Patch REMOVE NOTE PATCH OFF SCH ×2 (02:15→20:48)
[2021-10-25 03:58] LABS: Calcium 8.1 mg/dL (8.6-10.3)
[2021-10-25 04:04] LABS: eGFR CKD-EPI 95.1 (>60)
[2021-10-25] MEDS ORDERED: NS 0.9% 1000 ml BAG 1,000 ML IV SCH (07:15)
[2021-10-25 07:58] LABS: Magnesium 2.3 mg/dL (1.9-2.7)
[2021-10-25 08:16] LABS: Hematocrit 30 % (35-47); Hemoglobin 10.3 g/dL (12.0-16.0); Mean Corpuscular HGB Conc 34 g/dL (31-36); Mean Corpuscular Hemoglobin 31 pg (27-31); Mean Corpuscular Volume 93 fL (80-97); Mean Platelet Volume 7.3 fL (7.4-10.4); Platelet Count 383 10^3/uL (150-450); Red Blood Count 3.28 10^6 /uL (3.70-4.87); Red Cell Distribution Width 14 % (10-15); White Blood Count 8.7 10^3/uL (3.5-10.8)
[2021-10-25] MEDS: Mupirocin 2% OINT TUBE TOPICAL SCH ×3 (08:16→20:43)
[2021-10-25] MEDS: Lidocaine PATCH 5% PATCH TRANSDERM SCH (08:16)
[2021-10-25] MEDS: Nicotine PATCH 14 MG/24 HR PATCH TRANSDERM SCH (08:17)
[2021-10-25 08:33] LABS: Calcium 7.9 mg/dL (8.6-10.3); Potassium 3.5 mmol/L (3.5-5.0); eGFR CKD-EPI 121.3 (>60)
[2021-10-25] MEDS ORDERED: Potassium Phosphate IV 15 MMOLE in NS 0.9% 250 ml 250 ML IVPB ONE ×2 (09:18→18:00)
[2021-10-25] MEDS ORDERED: NS 0.9% 250 ml 250 ML ONE (10:15)
[2021-10-25 13:28] LABS: Blood Urea Nitrogen 10 mg/dL (6-24); CO2 Carbon Dioxide 36 mmol/L (22-32); Calcium 8.1 mg/dL (8.6-10.3); Chloride 102 mmol/L (101-111); Glucose 115 mg/dL (70-100); Sodium 138 mmol/L (135-145); eGFR CKD-EPI 123.5 (>60)
[2021-10-25 15:12] LABS: Urine Appearance Cloudy; Urine Bilirubin Negative (Negative); Urine Blood Negative (Negative); Urine Color Straw; Urine Glucose Negative (Negative); Urine Ketones Negative (Negative); Urine Nitrite Negative (Negative); Urine Protein Negative (Negative); Urine Specific Gravity 1.006 (1.002-1.030); Urine Urobilinogen Negative (Negative)
[2021-10-25 16:55] LABS: TSH Ultra Thyroid Stim Horm 1.14 mcIU/mL (0.34-5.60)
[2021-10-25] MEDS ORDERED: Ondansetron 4 mg VIAL 2 MG/ML 2 ml VIAL IV PRN (19:56)
[2021-10-25] MEDS ORDERED: Sodium Phosphate IV 15 MMOLE in NS 0.9% 250 ml 250 ML IV ONE (20:36)
[2021-10-26 07:23] LABS: Calcium 8.7 mg/dL (8.6-10.3); Magnesium 1.6 mg/dL (1.9-2.7); Phosphorus 2.8 mg/dL (2.5-5.0)
[2021-10-26] MEDS ORDERED: Magnesium Sulfate IV 3 GM in NS 0.9% 100 ml BAG 100 ML IVPB ONE (08:00)
[2021-10-26] MEDS: Nicotine PATCH 14 MG/24 HR PATCH TRANSDERM SCH (08:16)
[2021-10-26] MEDS: Mupirocin 2% OINT TUBE TOPICAL SCH (08:17)
[2021-10-26] MEDS: Lidocaine PATCH 5% PATCH TRANSDERM SCH (08:17)
[2021-10-26 13:23] LABS: Calcium 8.9 mg/dL (8.6-10.3); eGFR CKD-EPI 99.2 (>60)
[2021-10-26 13:34] LABS: Potassium 5.1 mmol/L (3.5-5.0)
[2021-10-26 13:49] VITALS: BP 112/58
[2021-10-26 14:19] LABS: Magnesium 2.6 mg/dL (1.9-2.7); Phosphorus 3.3 mg/dL (2.5-5.0)
== END 2021-10-26 15:11 | disposition home or self-care (01) | DRG 425 ==
LOC: ED 08:30 → EDHOLD 16:14 → SUATTDRO 16:14 → ICU 16:39 → MEDTELE 10-25 18:00
PROVIDERS: ADMIT Surgery Surgical Critical Care; ATTEND Internal Medicine

== ENCOUNTER 2021-11-28 15:20 | Inpatient (IN) ==
[2021-11-28] MEDS ORDERED: NS 0.9% 1000 ml BAG 1,000 ML IV ONE ×2 (15:41→17:43)
[2021-11-28] MEDS ORDERED: Magnesium Sulfate 2 gm BAG 2 GM/50 ML BAG IVPB ONE (15:56)
[2021-11-28 16:02] LABS: PCO2 Arterial 24 mmHg (35-45); PO2 Arterial 114 mmHg (80-100)
[2021-11-28] MEDS ORDERED: LORazepam 2 mg VIAL 1 ml ONE ×2 (16:28→20:29)
[2021-11-28] MEDS ORDERED: Lorazepam PYXIS KEY PRN ×3 (16:33→23:53)
[2021-11-28] MEDS ORDERED: LORazepam 2 mg VIAL 1 ml IM ONE (16:33)
[2021-11-28 16:39] LABS: ABS Lymphocytes 0.9 10^3/ul (1.0-4.8); ABS Monocytes 1.5 10^3/ul (0-0.8); ABS Neutrophils 17.6 10^3/ul (1.5-7.7); Hematocrit 43 % (35-47); Hemoglobin 14.6 g/dL (12.0-16.0); Lymphocyte % 4.7 %; Mean Corpuscular HGB Conc 34 g/dL (31-36); Mean Corpuscular Hemoglobin 31 pg (27-31); Mean Corpuscular Volume 90 fL (80-97); Mean Platelet Volume 7.6 fL (7.4-10.4); Nucleated Red Blood Cells % 0.1; Platelet Count 370 10^3/uL (150-450); Red Blood Count 4.76 10^6 /uL (3.70-4.87); Red Cell Distribution Width 13 % (10-15); White Blood Count 20.1 10^3/uL (3.5-10.8)
[2021-11-28] MEDS ORDERED: Etomidate 40 mg/20 ml (2 MG/ML) 20 ml VIAL (40 mg) ONE (16:46)
[2021-11-28] MEDS ORDERED: Rocuronium 50 mg VIAL 10 mg/ml 5 ml VIAL (50 mg) ONE (16:48)
[2021-11-28] MEDS ORDERED: Propofol 10 mg/ml 100 ML BTL 100 ML ONE (16:54)
[2021-11-28 16:56] LABS: Troponin I 0.02 ng/mL (<0.03)
[2021-11-28 16:58] LABS: ALT 33 U/L (7-52); AST 66 U/L (13-39); Alkaline Phosphatase 147 U/L (35-149); Blood Urea Nitrogen 25 mg/dL (6-24); C Reactive Protein 239.41 mg/L (<8.01); CO2 Carbon Dioxide 38 mmol/L (22-32); Calcium 10.1 mg/dL (8.6-10.3); Chloride 74 mmol/L (101-111); Creatine Kinase 1921 U/L (10-223); Glucose 94 mg/dL (70-100); Sodium 128 mmol/L (135-145)
[2021-11-28 16:59] LABS: HCG Pregnancy < 0.60 mIU/mL
[2021-11-28 17:03] LABS: Activated Partial Thrombo Time 35.3 seconds (26.0-38.0); INR 1.5 (0.86-1.15)
[2021-11-28] MEDS ORDERED: Propofol 10 mg/ml 100 ML BTL 100 ML IV ONE (17:03)
[2021-11-28] MEDS ORDERED: Etomidate 20 mg/10 ml 2 MG/ML 10 ml VIAL IV ONE (17:05)
[2021-11-28] MEDS ORDERED: Rocuronium 50 mg VIAL 10 mg/ml 5 ml VIAL (50 mg) IV ONE (17:06)
[2021-11-28] MEDS ORDERED: Propofol 10 MG/ML 20 ML BTL IV PUSH ONE (17:06)
[2021-11-28 17:19] LABS: Anion Gap 16 mmol/L (2-11); Potassium 2.1 mmol/L (3.5-5.0)
[2021-11-28] MEDS ORDERED: KCL 20 MEQ/100 ML IVPREMIX 20 MEQ/100 ML BAG ONE (17:19)
[2021-11-28 17:23] LABS: Acetaminophen < 15 mcg/mL; Alcohol, S < 13 mg/dL (<13); Salicylate < 2.50 mg/dL (<30)
[2021-11-28] MEDS ORDERED: KCL 20 MEQ/100 ML IVPREMIX 20 MEQ/100 ML BAG IV ONE (17:31)
[2021-11-28] MEDS ORDERED: Piperacillin/Tazobac ADVAN 3.375 GM in NS 0.9% 100 ml BAG 100 ML IV ONE (17:32)
[2021-11-28] MEDS ORDERED: Vancomycin 1,000 MG in NS 0.9% 250 ml 250 ML IVPB ONE (17:32)
[2021-11-28] MEDS ORDERED: Potassium Chloride LIQUID 20 MEQ/15 ML LIQUID PO ONE (17:44)
[2021-11-28] MEDS ORDERED: Vancomycin per Pharmacy 1 EA NOTE FOLLOW UP SCH (18:00)
[2021-11-28] MEDS ORDERED: Zosyn per Pharmacy NOTE FOLLOW UP SCH (18:00)
[2021-11-28 18:35] LABS: Myoglobin 905.4 ng/mL (14.3-65.8)
[2021-11-28] MEDS ORDERED: Midazolam 2 mg/2 ml VIAL 1 mg/ml 2 ml VIAL (2 mg) IV SLOW PU ONE (18:55)
[2021-11-28 19:28] LABS: Urine Appearance Turbid; Urine Bilirubin Negative (Negative); Urine Blood 2+ (Negative); Urine Color Amber; Urine Glucose Negative (Negative); Urine Ketones Trace (Negative); Urine Nitrite Negative (Negative); Urine Protein 2+(100 mg/dL) (Negative); Urine Specific Gravity 1.017 (1.002-1.030); Urine Urobilinogen Negative (Negative)
[2021-11-28] MEDS: NS 0.9% 1000 ml BAG 2,000 ML IV ONE (19:28)
[2021-11-28 19:32] LABS: Venous Bicarbonate HCO3 34.4 mmol/L (24-28)
[2021-11-28] MEDS: fentaNYL 100 mcg/2 ml 50 MCG/ML VIAL IV SLOW PU PRN (19:32)
[2021-11-28] MEDS ORDERED: Propofol 10 mg/ml 100 ML BTL 100 ML IV SCH (19:49)
[2021-11-28 19:55] LABS: Urine Bacteria Absent (Absent); Urine Red Blood Cell 2+(6-10/hpf) (Absent); Urine Transitional Epithelial Present (Absent); Urine White Blood Cell 3+(>20/hpf) (Absent)
[2021-11-28 20:00] LABS: Albumin 2.8 g/dL (3.2-5.2); Calcium 7.7 mg/dL (8.6-10.3); Globulin 2.7 g/dL (2-4); Magnesium 2.3 mg/dL (1.9-2.7); Phosphorus 3.4 mg/dL (2.5-5.0); Total Bilirubin 0.9 mg/dL (0.2-1.0); Total Protein 5.5 g/dL (6.4-8.9); eGFR CKD-EPI 95.1 (>60)
[2021-11-28 20:01] LABS: Urine Benzodiazepine Screen None Detected (None Detect); Urine Cannabinoids Screen None Detected (None Detect); Urine Opiates Screen None Detected (None Detect)
[2021-11-28] MEDS ORDERED: LORazepam 2 mg VIAL 1 ml IV PUSH PRN (20:12)
[2021-11-28] MEDS ORDERED: Thiamine 100 MG/ML 2 ml VIAL 100 MG, Folic Acid IV 1 MG, Multiple Vitamin IV ADULT 10 M... IV ONE (20:15)
[2021-11-28 20:18] LABS: Potassium 2.2 mmol/L (3.5-5.0)
[2021-11-28] MEDS: Heparin 5000 UNITS/ML 1 mL VIAL SUBCUT SCH (20:50)
[2021-11-28] MEDS ORDERED: Midazolam 50 MG VIAL IV DRIP 50 ML IV SCH (21:00)
[2021-11-28] MEDS: ZOSYN 3.375 GM Q8H per EXTENDED INFUSION IV SCH (23:28)
[2021-11-28 23:31] LABS: Calcium 7.6 mg/dL (8.6-10.3); Magnesium 2.2 mg/dL (1.9-2.7); Phosphorus 2.6 mg/dL (2.5-5.0); Potassium 2.9 mmol/L (3.5-5.0); eGFR CKD-EPI 99.2 (>60)
[2021-11-28 23:41] LABS: PCO2 Arterial 52 mmHg (35-45); PO2 Arterial 191 mmHg (80-100)
[2021-11-29] MEDS ORDERED: Potassium Chloride LIQUID 20 MEQ/15 ML LIQUID PO ONE (00:15)
[2021-11-29] MEDS: Chlorhexidine MOUTHWASH 0.12% 15 ML UDC SWISH SPIT SCH ×7 (00:34→22:59)
[2021-11-29] MEDS: KCL 20 MEQ/100 ML IVPREMIX 20 MEQ/100 ML BAG IV SCH ×2 (00:54→03:08)
[2021-11-29] MEDS: LORazepam 2 mg VIAL 1 ml IV PUSH PRN ×2 (03:05→22:49)
[2021-11-29] MEDS: fentaNYL 100 mcg/2 ml 50 MCG/ML VIAL IV SLOW PU PRN ×2 (03:06→06:20)
[2021-11-29] MEDS: Propofol 10 mg/ml 100 ML BTL 100 ML IV SCH ×2 (03:48→09:53)
[2021-11-29] MEDS: Vancomycin 750 MG in NS 0.9% 250 ML IVPB SCH ×3 (06:09→20:48)
[2021-11-29 06:16] LABS: ABS Lymphocytes 1.8 10^3/ul (1.0-4.8); ABS Neutrophils 11.2 10^3/ul (1.5-7.7); Eosinophil % 0.3 %; Hematocrit 29 % (35-47); Hemoglobin 9.7 g/dL (12.0-16.0); Lymphocyte % 12.9 %; Mean Corpuscular HGB Conc 34 g/dL (31-36); Mean Corpuscular Hemoglobin 31 pg (27-31); Mean Corpuscular Volume 93 fL (80-97); Mean Platelet Volume 7.5 fL (7.4-10.4); Platelet Count 260 10^3/uL (150-450); Red Blood Count 3.09 10^6 /uL (3.70-4.87); Red Cell Distribution Width 13 % (10-15); White Blood Count 14.1 10^3/uL (3.5-10.8)
[2021-11-29 06:32] LABS: Albumin 2.5 g/dL (3.2-5.2); Calcium 7.8 mg/dL (8.6-10.3); Globulin 2.4 g/dL (2-4); Potassium 3.9 mmol/L (3.5-5.0); Total Bilirubin 0.6 mg/dL (0.2-1.0); Total Protein 4.9 g/dL (6.4-8.9)
[2021-11-29] MEDS ORDERED: Potassium & Sodium Phos 250 mg = 1 PACKET PO ONE (08:07)
[2021-11-29] MEDS ORDERED: KCL 20 MEQ/100 ML IVPREMIX 20 MEQ/100 ML BAG IV ONE ×2 (08:07→15:03)
[2021-11-29 08:28] LABS: Phosphorus 1.5 mg/dL (2.5-5.0)
[2021-11-29] MEDS: KETOCONAZOLE 2% TOPICAL SCH (08:29)
[2021-11-29] MEDS: ZOSYN 3.375 GM Q8H per EXTENDED INFUSION IV SCH ×3 (08:55→22:53)
[2021-11-29] MEDS: Pantoprazole VIAL 40 MG VIAL IV SCH (08:56)
[2021-11-29] MEDS: Heparin 5000 UNITS/ML 1 mL VIAL SUBCUT SCH ×2 (08:56→20:44)
[2021-11-29] MEDS: Mupirocin 2% OINT TUBE TOPICAL SCH ×3 (08:56→20:48)
[2021-11-29] MEDS ORDERED: Potassium Phosphate IV 15 MMOLE in NS 0.9% 250 ml 250 ML IVPB ONE (10:00)
[2021-11-29 14:29] LABS: Venous Bicarbonate HCO3 26.1 mmol/L (24-28)
[2021-11-29 14:45] LABS: Calcium 7.9 mg/dL (8.6-10.3); Phosphorus 2.3 mg/dL (2.5-5.0); Potassium 3.9 mmol/L (3.5-5.0)
[2021-11-30] MEDS: LORazepam 2 mg VIAL 1 ml IV PUSH PRN ×4 (03:15→21:50)
[2021-11-30] MEDS: Chlorhexidine MOUTHWASH 0.12% 15 ML UDC SWISH SPIT SCH (03:21)
[2021-11-30] MEDS ORDERED: Vancomycin Trough Check NOTE FOLLOW UP ONE (05:30)
[2021-11-30] MEDS: Vancomycin 750 MG in NS 0.9% 250 ML IVPB SCH ×3 (07:09→21:55)
[2021-11-30] MEDS: KETOCONAZOLE 2% TOPICAL SCH (07:55)
[2021-11-30] MEDS: Pantoprazole VIAL 40 MG VIAL IV SCH (08:02)
[2021-11-30] MEDS: Heparin 5000 UNITS/ML 1 mL VIAL SUBCUT SCH ×2 (08:02→21:51)
[2021-11-30] MEDS: Mupirocin 2% OINT TUBE TOPICAL SCH ×3 (08:07→21:59)
[2021-11-30] MEDS: ZOSYN 3.375 GM Q8H per EXTENDED INFUSION IV SCH ×3 (08:31→23:32)
[2021-11-30 08:47] LABS: ABS Basophils 0.1 10^3/ul (0-0.2); ABS Eosinophils 0.3 10^3/ul (0-0.6); ABS Lymphocytes 2.7 10^3/ul (1.0-4.8); ABS Monocytes 0.7 10^3/ul (0-0.8); Eosinophil % 2.9 %; Hematocrit 30 % (35-47); Lymphocyte % 22.6 %; Mean Corpuscular HGB Conc 34 g/dL (31-36); Mean Corpuscular Hemoglobin 31 pg (27-31); Mean Corpuscular Volume 93 fL (80-97); Mean Platelet Volume 7.6 fL (7.4-10.4); Platelet Count 274 10^3/uL (150-450); Red Blood Count 3.17 10^6 /uL (3.70-4.87); Red Cell Distribution Width 13 % (10-15); White Blood Count 11.8 10^3/uL (3.5-10.8)
[2021-11-30 09:03] LABS: Calcium 8.3 mg/dL (8.6-10.3); Magnesium 1.5 mg/dL (1.9-2.7); Phosphorus 2.7 mg/dL (2.5-5.0); Potassium 3.5 mmol/L (3.5-5.0); eGFR CKD-EPI 121.3 (>60)
[2021-11-30] MEDS ORDERED: Potassium Chlor 20 meq TAB.ER PO ONE (09:15)
[2021-11-30] MEDS ORDERED: Magnesium Sulfate 2 gm BAG 2 GM/50 ML BAG IVPB ONE (09:15)
[2021-11-30] MEDS: KCL 20 MEQ/100 ML IVPREMIX 20 MEQ/100 ML BAG IV ONE ×2 (10:37→12:03)
[2021-11-30] MEDS ORDERED: Acetaminophen IV 1 GM/100ML 100 ML IV PRN (14:44)
[2021-11-30] MEDS: Ondansetron 4 mg VIAL 2 MG/ML 2 ml VIAL IV PRN (19:40)
[2021-12-01] MEDS: Vancomycin 750 MG in NS 0.9% 250 ML IVPB SCH (05:24)
[2021-12-01] MEDS: ZOSYN 3.375 GM Q8H per EXTENDED INFUSION IV SCH (08:36)
[2021-12-01] MEDS: Pantoprazole VIAL 40 MG VIAL IV SCH (08:36)
[2021-12-01] MEDS: Heparin 5000 UNITS/ML 1 mL VIAL SUBCUT SCH ×2 (08:37→22:06)
[2021-12-01] MEDS: LORazepam 2 mg VIAL 1 ml IV PUSH PRN ×3 (09:28→22:35)
[2021-12-01 09:30] LABS: C Reactive Protein 76.22 mg/L (<8.01); Calcium 8.3 mg/dL (8.6-10.3); Magnesium 1.7 mg/dL (1.9-2.7); Potassium 3.8 mmol/L (3.5-5.0); eGFR CKD-EPI 122.6 (>60)
[2021-12-01] MEDS: ceFAZolin 2 GM in NS PREMIX 2 GM/100 ML BAG IVPB SCH ×2 (13:06→17:44)
[2021-12-01] MEDS: KETOCONAZOLE 2% TOPICAL SCH (13:17)
[2021-12-01] MEDS: Mupirocin 2% OINT TUBE TOPICAL SCH ×3 (13:17→22:05)
[2021-12-01] MEDS: Nicotine PATCH 21 MG/24 HR PATCH TRANSDERM SCH (16:52)
[2021-12-01] MEDS: Ondansetron 4 mg VIAL 2 MG/ML 2 ml VIAL IV PRN (17:45)
[2021-12-01] MEDS ORDERED: Vancomycin 750 MG in NS 0.9% 250 ML IVPB SCH (22:00)
[2021-12-02] MEDS: Ondansetron 4 mg VIAL 2 MG/ML 2 ml VIAL IV PRN ×3 (00:38→21:49)
[2021-12-02] MEDS: ceFAZolin 2 GM in NS PREMIX 2 GM/100 ML BAG IVPB SCH ×3 (02:39→19:06)
[2021-12-02 07:22] LABS: ABS Eosinophils 0.3 10^3/ul (0-0.6); ABS Lymphocytes 2.6 10^3/ul (1.0-4.8); ABS Monocytes 0.6 10^3/ul (0-0.8); ABS Neutrophils 2.8 10^3/ul (1.5-7.7); Eosinophil % 5.3 %; Hematocrit 29 % (35-47); Hemoglobin 9.6 g/dL (12.0-16.0); Lymphocyte % 40.9 %; Mean Corpuscular HGB Conc 34 g/dL (31-36); Mean Corpuscular Hemoglobin 32 pg (27-31); Mean Corpuscular Volume 94 fL (80-97); Mean Platelet Volume 7.1 fL (7.4-10.4); Platelet Count 337 10^3/uL (150-450); Red Blood Count 3.05 10^6 /uL (3.70-4.87); Red Cell Distribution Width 13 % (10-15); White Blood Count 6.3 10^3/uL (3.5-10.8)
[2021-12-02] MEDS: Mupirocin 2% OINT TUBE TOPICAL SCH ×3 (08:09→21:48)
[2021-12-02] MEDS: Heparin 5000 UNITS/ML 1 mL VIAL SUBCUT SCH (08:11)
[2021-12-02] MEDS: Pantoprazole VIAL 40 MG VIAL IV SCH (08:11)
[2021-12-02] MEDS: Nicotine PATCH 21 MG/24 HR PATCH TRANSDERM SCH (08:16)
[2021-12-02] MEDS: KETOCONAZOLE 2% TOPICAL SCH (08:17)
[2021-12-02 11:02] LABS: Ferritin 119.4 ng/mL (11-307)
[2021-12-02] MEDS: LORazepam 2 mg VIAL 1 ml IV PUSH PRN (11:23)
[2021-12-02] MEDS ORDERED: Al Hydrox/Mg Hydrox/Simet LIQ 30 ML UDC PO PRN (13:09)
[2021-12-02] MEDS ORDERED: Enoxaparin 40 MG/0.4 ML SYR SUBCUT SCH (14:00)
[2021-12-03] MEDS: ceFAZolin 2 GM in NS PREMIX 2 GM/100 ML BAG IVPB SCH ×2 (02:30→10:55)
[2021-12-03] MEDS ORDERED: Multivitamins/Minerals TAB PO SCH (09:00)
[2021-12-03] MEDS: KETOCONAZOLE 2% TOPICAL SCH (10:02)
[2021-12-03] MEDS: Mupirocin 2% OINT TUBE TOPICAL SCH (10:03)
[2021-12-03] MEDS: Nicotine PATCH 21 MG/24 HR PATCH TRANSDERM SCH (10:04)
[2021-12-03 10:56] VITALS: BP 133/74
[2021-12-03] MEDS: Ondansetron 4 mg VIAL 2 MG/ML 2 ml VIAL IV PRN (10:56)
[2021-12-04] MEDS ORDERED: Vancomycin Trough Check NOTE FOLLOW UP ONE (06:00)
== END 2021-12-03 13:24 | disposition left against medical advice (07) | DRG 720 ==
LOC: ED 15:20 → ICU 20:25 → MED 11-30 16:23
PROVIDERS: ADMIT Internal Medicine; ATTEND Internal Medicine

== ENCOUNTER 2022-03-31 10:51 | Observation (INO) ==
[2022-03-31] MEDS ORDERED: NS 0.9% 1000 ml BAG 1,000 ML IV ONE ×2 (12:32→19:49)
[2022-03-31 13:57] LABS: ABS Eosinophils 0.2 10^3/ul (0-0.6); ABS Lymphocytes 1.8 10^3/ul (1.0-4.8); ABS Monocytes 0.7 10^3/ul (0-0.8); ABS Neutrophils 4.5 10^3/ul (1.5-7.7); Eosinophil % 3.3 %; Hematocrit 42 % (35-47); Hemoglobin 13.9 g/dL (12.0-16.0); Lymphocyte % 24.9 %; Mean Corpuscular HGB Conc 33 g/dL (31-36); Mean Corpuscular Hemoglobin 31 pg (27-31); Mean Corpuscular Volume 95 fL (80-97); Mean Platelet Volume 7.1 fL (7.4-10.4); Nucleated Red Blood Cells % 0.1; Platelet Count 409 10^3/uL (150-450); Red Blood Count 4.45 10^6 /uL (3.70-4.87); Red Cell Distribution Width 13 % (10-15); White Blood Count 7.3 10^3/uL (3.5-10.8)
[2022-03-31 14:34] LABS: ALT 14 U/L (7-52); AST 21 U/L (13-39); Albumin/Globulin Ratio 1.2 (1-3); Alkaline Phosphatase 115 U/L (35-149); Blood Urea Nitrogen 26 mg/dL (6-24); Calcium 10.3 mg/dL (8.6-10.3); Chloride 78 mmol/L (101-111); Globulin 3.4 g/dL (2-4); Glucose 116 mg/dL (70-100); Lipase 10 U/L (11.0-82.0); Magnesium 2.1 mg/dL (1.9-2.7); Sodium 137 mmol/L (135-145); Total Protein 7.4 g/dL (6.4-8.9); eGFR CKD-EPI 30.9 (>60)
[2022-03-31 14:41] LABS: HCG Pregnancy < 0.60 mIU/mL
[2022-03-31 14:53] LABS: CO2 Carbon Dioxide 53 mmol/L (22-32); Potassium 2.6 mmol/L (3.5-5.0)
[2022-03-31 14:59] LABS: Urine Appearance Cloudy; Urine Bilirubin Negative (Negative); Urine Blood Negative (Negative); Urine Color Yellow; Urine Glucose Negative (Negative); Urine Ketones Negative (Negative); Urine Nitrite Negative (Negative); Urine Protein 1+(30 mg/dL) (Negative); Urine Specific Gravity 1.013 (1.002-1.030); Urine Urobilinogen Negative (Negative)
[2022-03-31] MEDS ORDERED: Potassium Chlor 20 meq TAB.ER PO ONE (15:02)
[2022-03-31 15:08] LABS: Urine Bacteria Absent (Absent); Urine Red Blood Cell 1+(3-5/hpf) (Absent); Urine Squamous Epithelial Cell Present (Absent); Urine White Blood Cell Trace(0-5/hpf) (Absent)
[2022-03-31 15:09] LABS: Urine Benzodiazepine Screen None Detected (None Detect); Urine Cannabinoids Screen None Detected (None Detect); Urine Opiates Screen None Detected (None Detect)
[2022-03-31] MEDS: KCL 10 MEQ/50 ML IVPREMIX 10 MEQ/50 ML BAG IV SCH ×3 (15:44→19:30)
[2022-03-31 16:20] VITALS: BP 104/65
[2022-03-31] MEDS ORDERED: NS 0.9% 1000 ml BAG 1,000 ML IV SCH (16:30)
[2022-03-31 16:55] LABS: Venous Bicarbonate HCO3 46.2 mmol/L (24-28)
[2022-03-31] MEDS: Potassium Chlor 20 meq TAB.ER PO ONE ×2 (16:56→19:18)
[2022-03-31] MEDS ORDERED: Senna TAB 8.6 mg TAB PO PRN (17:59)
[2022-03-31] MEDS ORDERED: Magnesium Hydroxide LIQ 30 ML UDC PO PRN (17:59)
[2022-03-31] MEDS ORDERED: Polyethylene Glycol 3350 17 GM PACKET PO PRN (17:59)
[2022-03-31] MEDS ORDERED: Rizatriptan ODT 10 mg TAB (NF) PO PRN (19:38)
[2022-03-31] MEDS ORDERED: Nicotine PATCH 14 MG/24 HR PATCH TRANSDERM SCH (21:00)
[2022-03-31] MEDS ORDERED: Nicotine PATCH 21 MG/24 HR PATCH TRANSDERM SCH (21:00)
[2022-03-31] MEDS ORDERED: Magnesium Hydroxide LIQ 30 ML UDC PO SCH (21:00)
[2022-04-01] MEDS ORDERED: Potassium Chloride LIQUID 20 MEQ/15 ML LIQUID PO SCH (09:00)
== END 2022-04-01 02:34 | disposition left against medical advice (07) ==
LOC: ED 10:51 → EDHOLD 10:51
PROVIDERS: ADMIT Internal Medicine; ATTEND Internal Medicine

== ENCOUNTER 2023-09-05 03:19 | Observation (INO) ==
[2023-09-05] MEDS ORDERED: Lactated Ringers 1000 ml BAG 1,000 ML IV ONE ×5 (03:51→23:29)
[2023-09-05 04:49] LABS: Hematocrit 40.7 % (35-45); Hemoglobin 13.9 g/dL (11.5-14.3); Mean Corpuscular Hemoglobin 31.3 pg (27-33); Mean Platelet Volume 6.2 fL (7.5-11.2); Platelet Count 609 10^3/uL (150-450); Red Blood Count 4.43 10^6/uL (3.63-4.92); Red Cell Distribution Width 15.5 % (12-17); White Blood Count 26.5 10^3/uL (3.8-11.8)
[2023-09-05] MEDS ORDERED: Ondansetron 4 mg VIAL 2 MG/ML 2 ml VIAL IV ONE (05:00)
[2023-09-05 05:02] LABS: INR 1.16 (0.83-1.13)
[2023-09-05 05:07] LABS: ALT 10 U/L (7-52); AST 21 U/L (13-39); Albumin 3.7 g/dL (3.2-5.2); Alkaline Phosphatase 189 U/L (35-149); Anion Gap 28 mmol/L (2-16); Blood Urea Nitrogen 8 mg/dL (6-24); C Reactive Protein 22.72 mg/L (<8.01); CO2 Carbon Dioxide 18 mmol/L (22-32); Calcium 8.9 mg/dL (8.6-10.3); Chloride 83 mmol/L (101-111); Globulin 3.8 g/dL (2-4); Glucose 160 mg/dL (70-100); Potassium 3.2 mmol/L (3.5-5.0); Sodium 129 mmol/L (135-145); Total Bilirubin 0.5 mg/dL (0.2-1.0); Total Protein 7.5 g/dL (6.4-8.9)
[2023-09-05 05:13] LABS: Alcohol, S 97 mg/dL (<13); High Sens Troponin Baseline 3 pg/mL (<15)
[2023-09-05 05:15] LABS: HCG Pregnancy < 0.60 mIU/mL
[2023-09-05] MEDS ORDERED: Ondansetron 4 mg VIAL 2 MG/ML 2 ml VIAL ONE (05:35)
[2023-09-05 05:51] LABS: Creatine Kinase 94 U/L (10-223)
[2023-09-05 05:55] LABS: Venous Bicarbonate HCO3 22.8 mmol/L (24-28)
[2023-09-05 06:00] LABS: ABS Monocytes 1.1 10^3/uL (0.0-0.9); ABS Neutrophils 24.4 10^3/uL (1.5-7.6); ABS Nucleated RBC 0.01 10^3/ul; Eosinophil % 0.1 %; Lymphocyte % 3.6 %
[2023-09-05] MEDS ORDERED: LORazepam 2 mg VIAL 1 ml IV PUSH ONE ×3 (06:15→11:14)
[2023-09-05] MEDS ORDERED: Lorazepam PYXIS KEY PRN ×3 (06:15→11:14)
[2023-09-05 06:30] LABS: High Sensitivity Troponin 1 Hr < 3 pg/mL (<15)
[2023-09-05] MEDS ORDERED: Iohexol 350 (CONTRAST) 500 ML MDV IV ONE (06:46)
[2023-09-05 06:47] LABS: Urine Benzodiazepine Screen None Detected (None Detect); Urine Cannabinoids Screen None Detected (None Detect); Urine Opiates Screen None Detected (None Detect)
[2023-09-05 07:14] LABS: Urine Appearance Cloudy; Urine Bilirubin Negative (Negative); Urine Blood Negative (Negative); Urine Color Yellow; Urine Glucose Negative (Negative); Urine Ketones Negative (Negative); Urine Nitrite Negative (Negative); Urine Protein 1+(30 mg/dL) (Negative); Urine Specific Gravity 1.013 (1.002-1.030); Urine Urobilinogen Negative (Negative)
[2023-09-05 07:21] LABS: Urine Bacteria Absent (Absent); Urine Red Blood Cell Absent (Absent); Urine Squamous Epithelial Cell Present (Absent); Urine White Blood Cell 3+(>20/hpf) (Absent)
[2023-09-05] MEDS ORDERED: Prochlorperazine 5 mg/ml 2 ml VIAL (10 mg) IV ONE (07:22)
[2023-09-05] MEDS: Benzocaine/Menthol LOZ PO PRN ×3 (07:59→23:06)
[2023-09-05 12:15] LABS: Lipase 351 U/L (11.0-82.0)
[2023-09-05 13:03] LABS: Magnesium 1.7 mg/dL (1.9-2.7); Phosphorus 4.9 mg/dL (2.5-5.0)
[2023-09-05] MEDS: Enoxaparin 40 MG/0.4 ML SYR SUBCUT SCH (13:17)
[2023-09-05] MEDS ORDERED: Potassium Chlor 20 meq TAB.ER PO ONE (13:21)
[2023-09-05] MEDS ORDERED: Magnesium Sulfate 2 gm BAG 2 GM/50 ML BAG IVPB ONE (13:21)
[2023-09-05] MEDS ORDERED: Thiamine 100 MG/ML 2 ml VIAL (200 mg) IM ONE (13:43)
[2023-09-05] MEDS ORDERED: LORazepam 2 mg VIAL 1 ml IV PUSH SCH (14:00)
[2023-09-05] MEDS ORDERED: Ondansetron 4 mg VIAL 2 MG/ML 2 ml VIAL IV PRN (14:59)
[2023-09-05] MEDS: Multivitamins/Minerals TAB PO SCH (17:01)
[2023-09-05] MEDS: Pantoprazole VIAL 40 MG VIAL IV SCH (17:02)
[2023-09-05] MEDS: Al Hydrox/Mg Hydrox/Simet LIQ 30 ML UDC PO PRN (17:02)
[2023-09-05] MEDS: cefTRIAXone 1 gm/50 mL D5W 1 GM/50 ML BAG IV SCH (17:11)
[2023-09-05] MEDS: Sucralfate 1 gm SUSP 1 GM/10 ML UDC PO SCH (21:09)
[2023-09-05] MEDS: Ondansetron ODT 4 mg TAB 4 MG TAB SL PRN (21:37)
[2023-09-06 05:42] LABS: ABS Lymphocytes 1.5 10^3/uL (1.0-4.8); ABS Monocytes 0.6 10^3/uL (0.0-0.9); ABS Neutrophils 9.2 10^3/uL (1.5-7.6); ABS Nucleated RBC 0.01 10^3/ul; Eosinophil % 0.1 %; Hematocrit 29.3 % (35-45); Mean Corpuscular Hemoglobin 31.4 pg (27-33); Mean Corpuscular Hgb Conc 34.1 g/dL (31-36); Mean Corpuscular Volume 92.2 fL (80-97); Mean Platelet Volume 6.9 fL (7.5-11.2); Nucleated Red Blood Cells % 0.1 %/100WBC (0.0-0.8); Platelet Count 287 10^3/uL (150-450); Red Blood Count 3.18 10^6/uL (3.63-4.92); Red Cell Distribution Width 15.7 % (12-17); White Blood Count 11.3 10^3/uL (3.8-11.8)
[2023-09-06 06:02] LABS: Calcium 7.6 mg/dL (8.6-10.3); Creatinine, Serum 0.68 mg/dL (0.51-0.95); Magnesium 1.9 mg/dL (1.9-2.7); Potassium 3.4 mmol/L (3.5-5.0); eGFR CKD-EPI 119.3 (>60)
[2023-09-06] MEDS: Benzocaine/Menthol LOZ PO PRN ×2 (06:33→12:45)
[2023-09-06] MEDS ORDERED: Potassium Chloride LIQUID 20 MEQ/15 ML LIQUID PO ONE (07:41)
[2023-09-06] MEDS: Sucralfate 1 gm SUSP 1 GM/10 ML UDC PO SCH ×2 (07:48→10:54)
[2023-09-06] MEDS: Multivitamins/Minerals TAB PO SCH (08:04)
[2023-09-06] MEDS: Ondansetron ODT 4 mg TAB 4 MG TAB SL PRN (08:20)
[2023-09-06] MEDS: Enoxaparin 40 MG/0.4 ML SYR SUBCUT SCH (10:58)
[2023-09-06] MEDS: Al Hydrox/Mg Hydrox/Simet LIQ 30 ML UDC PO PRN (11:05)
[2023-09-06] MEDS ORDERED: Ondansetron 4 mg VIAL 2 MG/ML 2 ml VIAL IV PRN (11:52)
[2023-09-06] MEDS ORDERED: Nicotine PATCH 7 MG/24 HR PATCH TRANSDERM SCH (12:00)
[2023-09-06] MEDS: cefTRIAXone 1 gm/50 mL D5W 1 GM/50 ML BAG IV SCH (13:10)
[2023-09-06 15:10] VITALS: BP 126/72
[2023-09-06] MEDS: Pantoprazole VIAL 40 MG VIAL IV SCH (15:15)
== END 2023-09-06 16:10 | disposition home or self-care (01) ==
LOC: ED 03:19 → EDHOLD 03:19 → MEDTELE 13:28
PROVIDERS: ADMIT Student in an Organized Health Care Education/Training Program; ATTEND Student in an Organized Health Care Education/Training Program

== ENCOUNTER 2023-10-04 17:21 | Inpatient (IN) ==
[2023-10-04] MEDS ORDERED: Lactated Ringers 1000 ml BAG 1,000 ML IV ONE ×2 (17:34→20:17)
[2023-10-04] MEDS ORDERED: Acetaminophen IV 1 GM/100ML 1,000 MG/100 ML BAG IV ONE (17:38)
[2023-10-04] MEDS ORDERED: Ondansetron 4 mg VIAL 2 MG/ML 2 ml VIAL IV ONE ×2 (17:38→20:18)
[2023-10-04] MEDS ORDERED: Lorazepam PYXIS KEY PRN ×2 (17:38→21:07)
[2023-10-04] MEDS ORDERED: LORazepam 2 mg VIAL 1 ml IV PUSH ONE ×2 (17:38→21:07)
[2023-10-04 18:13] LABS: Urine Appearance Turbid; Urine Bilirubin 2+ (Negative); Urine Blood Negative (Negative); Urine Color Amber; Urine Glucose Negative (Negative); Urine Ketones Negative (Negative); Urine Nitrite Negative (Negative); Urine Protein 1+(30 mg/dL) (Negative); Urine Specific Gravity 1.027 (1.002-1.030); Urine Urobilinogen Positive (Negative)
[2023-10-04 18:34] LABS: Urine Bacteria Absent (Absent); Urine Red Blood Cell Trace(0-2/hpf) (Absent); Urine Squamous Epithelial Cell Present (Absent); Urine White Blood Cell 3+(>20/hpf) (Absent)
[2023-10-04] MEDS ORDERED: Morphine 4 MG/ML VIAL (1 ml) IV ONE (19:29)
[2023-10-04 20:01] LABS: ABS Lymphocytes 0.7 10^3/uL (1.0-4.8); ABS Monocytes 1.1 10^3/uL (0.0-0.9); ABS Neutrophils 15.1 10^3/uL (1.5-7.6); ABS Nucleated RBC 0.01 10^3/ul; Hematocrit 39.9 % (35-45); Hemoglobin 13.3 g/dL (11.5-14.3); Lymphocyte % 4.4 %; Mean Corpuscular Hemoglobin 31.9 pg (27-33); Mean Corpuscular Hgb Conc 33.4 g/dL (31-36); Mean Corpuscular Volume 95.5 fL (80-97); Mean Platelet Volume 6.8 fL (7.5-11.2); Platelet Count 221 10^3/uL (150-450); Red Blood Count 4.18 10^6/uL (3.63-4.92); Red Cell Distribution Width 16.5 % (12-17)
[2023-10-04 20:19] LABS: Anion Gap 16 mmol/L (2-16); Blood Urea Nitrogen 9 mg/dL (6-24); C Reactive Protein 2.32 mg/L (<8.01); CO2 Carbon Dioxide 24 mmol/L (22-32); Calcium 7.5 mg/dL (8.6-10.3); Chloride 101 mmol/L (101-111); Creatinine, Serum 0.74 mg/dL (0.51-0.95); Glucose 97 mg/dL (70-100); Potassium 3.7 mmol/L (3.5-5.0); Sodium 141 mmol/L (135-145); eGFR CKD-EPI 110.9 (>60)
[2023-10-04 20:25] LABS: HCG Pregnancy < 0.60 mIU/mL
[2023-10-04 20:26] LABS: ALT 195 U/L (7-52); AST 41 U/L (13-39); Albumin 2.8 g/dL (3.2-5.2); Alkaline Phosphatase 245 U/L (35-149); Globulin 2.7 g/dL (2-4); Magnesium 1.2 mg/dL (1.9-2.7); Total Bilirubin 0.4 mg/dL (0.2-1.0); Total Protein 5.5 g/dL (6.4-8.9)
[2023-10-04] MEDS ORDERED: Magnesium Sulfate 2 gm BAG 2 GM/50 ML BAG IVPB ONE (20:28)
[2023-10-04 20:34] LABS: Lipase 885 U/L (11.0-82.0)
[2023-10-04] MEDS ORDERED: LORazepam 2 mg VIAL 1 ml IV PUSH SCH (21:00)
[2023-10-04 21:01] LABS: Alcohol, S 79 mg/dL (<13)
[2023-10-04] MEDS ORDERED: Al Hydrox/Mg Hydrox/Simet LIQ 30 ML UDC PO PRN (21:40)
[2023-10-04] MEDS ORDERED: Lactated Ringers 1000 ml BAG 1,000 ML IV SCH ×2 (22:00)
[2023-10-04] MEDS ORDERED: Magnesium Sulf 4 GM/100 ML IV 4,000 MG/100 ML BAG IVPB ONE (22:02)
[2023-10-04 23:02] LABS: Amylase 213 U/L (29-103)
[2023-10-04] MEDS: Morphine 2 MG/ML SYRINGE IV PRN (23:45)
[2023-10-05] MEDS: Ondansetron 4 mg VIAL 2 MG/ML 2 ml VIAL IV PRN ×2 (02:16→13:56)
[2023-10-05] MEDS: Morphine 2 MG/ML SYRINGE IV PRN ×5 (02:16→16:53)
[2023-10-05 03:29] LABS: Urine Appearance Cloudy; Urine Bilirubin Negative (Negative); Urine Blood Negative (Negative); Urine Color Yellow; Urine Glucose Negative (Negative); Urine Ketones Negative (Negative); Urine Nitrite Negative (Negative); Urine Protein 1+(30 mg/dL) (Negative); Urine Specific Gravity 1.033 (1.002-1.030); Urine Urobilinogen Negative (Negative)
[2023-10-05 03:33] LABS: Urine Bacteria Absent (Absent); Urine Red Blood Cell Absent (Absent); Urine Squamous Epithelial Cell Present (Absent); Urine White Blood Cell 1+(6-10/hpf) (Absent)
[2023-10-05 07:11] LABS: ABS Lymphocytes 0.9 10^3/uL (1.0-4.8); ABS Monocytes 0.5 10^3/uL (0.0-0.9); ABS Neutrophils 5.1 10^3/uL (1.5-7.6); ABS Nucleated RBC 0.02 10^3/ul; Eosinophil % 0.1 %; Hematocrit 38.8 % (35-45); Hemoglobin 12.5 g/dL (11.5-14.3); Lymphocyte % 13.7 %; Mean Corpuscular Hemoglobin 32.2 pg (27-33); Mean Corpuscular Hgb Conc 32.1 g/dL (31-36); Mean Corpuscular Volume 100.1 fL (80-97); Mean Platelet Volume 7.2 fL (7.5-11.2); Nucleated Red Blood Cells % 0.2 %/100WBC (0.0-0.8); Platelet Count 135 10^3/uL (150-450); Red Blood Count 3.88 10^6/uL (3.63-4.92); Red Cell Distribution Width 16.7 % (12-17); White Blood Count 6.5 10^3/uL (3.8-11.8)
[2023-10-05] MEDS: Multivitamins/Minerals TAB PO SCH (07:56)
[2023-10-05] MEDS ORDERED: Lactated Ringers 1000 ml BAG 1,000 ML IV SCH ×2 (08:00→09:56)
[2023-10-05 08:41] LABS: Albumin 2.9 g/dL (3.2-5.2); Albumin/Globulin Ratio 1.1 (1-3); Calcium 7.3 mg/dL (8.6-10.3); Creatinine, Serum 0.78 mg/dL (0.51-0.95); Globulin 2.7 g/dL (2-4); Magnesium 2.4 mg/dL (1.9-2.7); Potassium 3.6 mmol/L (3.5-5.0); Total Bilirubin 0.9 mg/dL (0.2-1.0); Total Protein 5.6 g/dL (6.4-8.9); eGFR CKD-EPI 104.1 (>60)
[2023-10-05] MEDS ORDERED: Lactated Ringers 1000 ml BAG 1,000 ML IV ONE (10:42)
[2023-10-05] MEDS ORDERED: Azithromycin 500 mg/250 ml NS 500 MG/250 ML BAG IVPB SCH (11:00)
[2023-10-05] MEDS: LORazepam 2 mg VIAL 1 ml IV PUSH SCH ×3 (11:22→20:45)
[2023-10-05] MEDS: diazePAM INJ CARPUJECT 5 MG/ML SYRINGE IV SCH ×2 (11:37→20:25)
[2023-10-05] MEDS ORDERED: cefTRIAXone 1 gm/50 mL D5W 1 GM/50 ML BAG IV SCH (12:30)
[2023-10-05] MEDS ORDERED: Iohexol 350 (CONTRAST) 500 ML MDV IV ONE (14:08)
[2023-10-05] MEDS ORDERED: Zosyn per Pharmacy NOTE FOLLOW UP SCH (16:00)
[2023-10-05] MEDS ORDERED: Piperacillin/Tazobac 3.375 BAG 3.375 GM/100 ML BAG IV ONE (16:30)
[2023-10-05] MEDS ORDERED: ZOSYN 3.375 GM Q8H per EXTENDED INFUSION IV SCH (22:00)
[2023-10-05 23:10] LABS: Rapid COVID-19 Molecular Undetected (Undetected)
[2023-10-06] MEDS: diazePAM INJ CARPUJECT 5 MG/ML SYRINGE IV SCH ×2 (03:47→09:01)
[2023-10-06 06:29] LABS: ABS Lymphocytes 1.5 10^3/uL (1.0-4.8); ABS Monocytes 0.6 10^3/uL (0.0-0.9); ABS Neutrophils 10.2 10^3/uL (1.5-7.6); ABS Nucleated RBC 0.01 10^3/ul; Eosinophil % 0.2 %; Hematocrit 36.6 % (35-45); Hemoglobin 12.3 g/dL (11.5-14.3); Lymphocyte % 12.2 %; Mean Corpuscular Hemoglobin 32.2 pg (27-33); Mean Corpuscular Hgb Conc 33.5 g/dL (31-36); Mean Corpuscular Volume 96.2 fL (80-97); Mean Platelet Volume 7.6 fL (7.5-11.2); Platelet Count 131 10^3/uL (150-450); Red Blood Count 3.81 10^6/uL (3.63-4.92); Red Cell Distribution Width 16.5 % (12-17); White Blood Count 12.4 10^3/uL (3.8-11.8)
[2023-10-06 06:48] LABS: Albumin 2.4 g/dL (3.2-5.2); Albumin/Globulin Ratio 1.1 (1-3); Calcium 7.4 mg/dL (8.6-10.3); Creatinine, Serum 0.69 mg/dL (0.51-0.95); Globulin 2.1 g/dL (2-4); Magnesium 1.8 mg/dL (1.9-2.7); Potassium 3.6 mmol/L (3.5-5.0); Total Bilirubin 1.2 mg/dL (0.2-1.0); Total Protein 4.5 g/dL (6.4-8.9); eGFR CKD-EPI 118.9 (>60)
[2023-10-06 06:51] VITALS: BP 129/92
[2023-10-06] MEDS ORDERED: Lactated Ringers 1000 ml BAG 1,000 ML IV ONE (07:25)
[2023-10-06] MEDS ORDERED: ZOSYN 3.375 GM Q8H per EXTENDED INFUSION IV SCH (08:00)
[2023-10-06] MEDS: Morphine 2 MG/ML SYRINGE IV PRN (08:03)
[2023-10-06] MEDS: Multivitamins/Minerals TAB PO SCH (08:07)
[2023-10-06] MEDS: Ondansetron 4 mg VIAL 2 MG/ML 2 ml VIAL IV PRN (09:02)
== END 2023-10-06 09:23 | disposition short-term general hospital (02) | DRG 282 ==
LOC: EDHOLD 17:21 → ED 17:21 → MEDTELE 10-05 00:43
PROVIDERS: ADMIT Internal Medicine; ATTEND Internal Medicine

== ENCOUNTER 2024-05-17 11:22 | Observation (INO) ==
[2024-05-17 11:46] LABS: ABS Eosinophils 0.1 10^3/uL (0.0-0.5); ABS Lymphocytes 3.2 10^3/uL (1.0-4.8); ABS Monocytes 0.6 10^3/uL (0.0-0.9); ABS Neutrophils 4.1 10^3/uL (1.5-7.6); ABS Nucleated RBC 0.01 10^3/ul; Eosinophil % 0.8 %; Hematocrit 38.5 % (35-45); Hemoglobin 13.1 g/dL (11.5-14.3); Lymphocyte % 40.1 %; Mean Corpuscular Volume 91.3 fL (80-97); Mean Platelet Volume 6.7 fL (7.5-11.2); Nucleated Red Blood Cells % 0.1 %/100WBC (0.0-0.8); Platelet Count 403 10^3/uL (150-450); Red Blood Count 4.22 10^6/uL (3.63-4.92); Red Cell Distribution Width 14.1 % (12-17)
[2024-05-17 12:22] LABS: Albumin 3.1 g/dL (3.2-5.2); Calcium 8.3 mg/dL (8.6-10.3); Creatinine, Serum 0.72 mg/dL (0.51-0.95); Globulin 3.2 g/dL (2-4); Potassium 3.7 mmol/L (3.5-5.0); Total Bilirubin 0.4 mg/dL (0.2-1.0); Total Protein 6.3 g/dL (6.4-8.9); eGFR CKD-EPI 114.6 (>60)
[2024-05-17 12:22] LABS: Urine Benzodiazepine Screen None Detected (None Detect); Urine Buprenorphine Screen None Detected (None Detect); Urine Cannabinoids Screen None Detected (None Detect); Urine Fentanyl Screen None Detected (None Detect); Urine Hydrocodone Screen None Detected (None Detect); Urine Opiates Screen None Detected (None Detect)
[2024-05-17] MEDS: Lactated Ringers 1000 ml BAG 1,000 ML IV ONE ×2 (12:25→16:58)
[2024-05-17 12:27] LABS: CKMB ng/mL 15.5 ng/mL (0.6-6.3)
[2024-05-17] MEDS: Ondansetron 4 mg VIAL 2 MG/ML 2 ml VIAL IV ONE (12:29)
[2024-05-17] MEDS: Thiamine 100 MG/ML 2 ml VIAL 100 MG, Folic Acid IV 1 MG, Multiple Vitamin IV ADULT 10 M... IV ONE (13:28)
[2024-05-17] MEDS ORDERED: Lorazepam PYXIS KEY PRN ×2 (16:51→22:01)
[2024-05-17] MEDS: LORazepam 2 mg VIAL 1 ml IV PUSH ONE (16:57)
[2024-05-17] MEDS: Thiamine 100 MG/ML 2 ml VIAL (200 mg) IM ONE (22:08)
[2024-05-17] MEDS: LORazepam 2 mg VIAL 1 ml IV ONE (22:09)
[2024-05-18] MEDS: Enoxaparin 40 MG/0.4 ML SYR SUBCUT SCH (00:48)
[2024-05-18] MEDS: LORazepam 2 mg VIAL 1 ml IV PUSH SCH (02:24)
[2024-05-18] MEDS: Multivitamins/Minerals TAB PO SCH (09:14)
[2024-05-18 09:38] LABS: Anion Gap 7 mmol/L (2-16); Blood Urea Nitrogen 5 mg/dL (6-24); CO2 Carbon Dioxide 34 mmol/L (22-32); Calcium 7.5 mg/dL (8.6-10.3); Chloride 101 mmol/L (101-111); Creatinine, Serum 0.72 mg/dL (0.51-0.95); Glucose 91 mg/dL (70-100); Potassium 3.5 mmol/L (3.5-5.0); Sodium 142 mmol/L (135-145); eGFR CKD-EPI 114.6 (>60)
[2024-05-18 10:34] LABS: Folate > 20.00 ng/mL (5.90-24.80)
[2024-05-18 19:21] LABS: High Sensitivity Troponin 1 Hr < 3 pg/mL (<15)
[2024-05-19] MEDS: Al Hydrox/Mg Hydrox/Simet LIQ 30 ML UDC PO PRN (14:50)
[2024-05-20 06:13] LABS: Calcium 7.6 mg/dL (8.6-10.3); Creatinine, Serum 0.79 mg/dL (0.51-0.95); Magnesium 1.6 mg/dL (1.9-2.7); Potassium 3.2 mmol/L (3.5-5.0); eGFR CKD-EPI 102.5 (>60)
[2024-05-20] MEDS ORDERED: Potassium Chlor 20 meq TAB.ER PO ONE (08:07)
[2024-05-20] MEDS ORDERED: Calcium Carb (TUMS) 500 mg CHEW TAB PO PRN (08:12)
[2024-05-20] MEDS: KCL 20 MEQ/100 ML IVPREMIX 20 MEQ/100 ML BAG IV SCH (08:46)
[2024-05-20 09:44] VITALS: BP 145/93
[2024-05-20] MEDS: Potassium Chloride LIQUID 20 MEQ/15 ML LIQUID PO ONE (10:39)
== END 2024-05-20 11:37 | disposition home or self-care (01) ==
LOC: EDHOLD 11:22 → ED 11:22 → SUATTDRO 21:58 → MEDTELE 05-18 00:59
PROVIDERS: ADMIT Internal Medicine; ATTEND Internal Medicine

== ENCOUNTER 2024-06-26 11:41 | Inpatient (IN) ==
[2024-06-26] MEDS ORDERED: Lorazepam PYXIS KEY PRN ×2 (13:07→15:30)
[2024-06-26] MEDS: LORazepam 2 mg VIAL 1 ml IV PUSH ONE ×2 (13:21→16:14)
[2024-06-26] MEDS: Lactated Ringers 1000 ml BAG 1,000 ML IV ONE ×2 (13:22→14:36)
[2024-06-26 13:23] LABS: INR 1.15 (0.85-1.14)
[2024-06-26 13:35] LABS: ALT 33 U/L (7-52); AST 118 U/L (13-39); Albumin 3.3 g/dL (3.2-5.2); Albumin/Globulin Ratio 1.1 (1-3); Alcohol, S 183 mg/dL (<13); Alkaline Phosphatase 141 U/L (35-149); Anion Gap 14 mmol/L (2-16); Blood Urea Nitrogen 8 mg/dL (6-24); CO2 Carbon Dioxide 29 mmol/L (22-32); Calcium 8.2 mg/dL (8.6-10.3); Chloride 103 mmol/L (101-111); Creatinine, Serum 0.68 mg/dL (0.51-0.95); Glucose 71 mg/dL (70-100); Magnesium 1.7 mg/dL (1.9-2.7); Potassium 3.9 mmol/L (3.5-5.0); Sodium 146 mmol/L (135-145); Total Bilirubin 0.2 mg/dL (0.2-1.0); Total Protein 6.3 g/dL (6.4-8.9); eGFR CKD-EPI 118.6 (>60)
[2024-06-26 13:37] LABS: High Sens Troponin Baseline < 3 pg/mL (<15)
[2024-06-26 13:58] LABS: ABS Eosinophils 0.1 10^3/uL (0.0-0.5); ABS Lymphocytes 0.6 10^3/uL (1.0-4.8); ABS Monocytes 0.3 10^3/uL (0.0-0.9); ABS Neutrophils 4.3 10^3/uL (1.5-7.6); Eosinophil % 1.1 %; Hematocrit 33.4 % (35-45); Hemoglobin 11.2 g/dL (11.5-14.3); Lymphocyte % 11.9 %; Mean Corpuscular Hemoglobin 30.5 pg (27-33); Mean Corpuscular Hgb Conc 33.6 g/dL (31-36); Mean Corpuscular Volume 90.9 fL (80-97); Mean Platelet Volume 6.4 fL (7.5-11.2); Nucleated Red Blood Cells % 0.1 %/100WBC (0.0-0.8); Platelet Count 393 10^3/uL (150-450); Red Blood Count 3.67 10^6/uL (3.63-4.92); Red Cell Distribution Width 15.1 % (12-17); White Blood Count 5.3 10^3/uL (3.8-11.8)
[2024-06-26 14:21] LABS: High Sensitivity Troponin 1 Hr < 3 pg/mL (<15)
[2024-06-26] MEDS: Multivitamins/Minerals TAB PO SCH (16:14)
[2024-06-26] MEDS: Thiamine 100 MG/ML 2 ml VIAL (200 mg) IM ONE (16:16)
[2024-06-26 16:25] LABS: Lipase 14 U/L (11.0-82.0)
[2024-06-26] MEDS: Magnesium Sulfate 2 gm BAG 2 GM/50 ML BAG IVPB ONE (19:34)
[2024-06-26] MEDS: LORazepam 2 mg VIAL 1 ml IV PUSH SCH (20:32)
[2024-06-26] MEDS: Magnesium Sulfate IV 1GM/100ML 1 GM/100 ML BAG IV ONE (20:33)
[2024-06-26] MEDS: Calcium Carb (TUMS) 500 mg CHEW TAB PO PRN (22:14)
[2024-06-27 06:33] LABS: ABS Lymphocytes 1.1 10^3/uL (1.0-4.8); ABS Monocytes 0.2 10^3/uL (0.0-0.9); ABS Nucleated RBC 0.02 10^3/ul; Eosinophil % 0.4 %; Hematocrit 30.1 % (35-45); Hemoglobin 10.3 g/dL (11.5-14.3); Lymphocyte % 24.9 %; Mean Corpuscular Hemoglobin 30.9 pg (27-33); Mean Corpuscular Hgb Conc 34.2 g/dL (31-36); Mean Corpuscular Volume 90.4 fL (80-97); Mean Platelet Volume 6.5 fL (7.5-11.2); Nucleated Red Blood Cells % 0.4 %/100WBC (0.0-0.8); Platelet Count 300 10^3/uL (150-450); Red Blood Count 3.32 10^6/uL (3.63-4.92); Red Cell Distribution Width 15.1 % (12-17); White Blood Count 4.3 10^3/uL (3.8-11.8)
[2024-06-27 07:20] LABS: Calcium 7.3 mg/dL (8.6-10.3); Creatinine, Serum 0.97 mg/dL (0.51-0.95); Potassium 3.5 mmol/L (3.5-5.0); eGFR CKD-EPI 79.6 (>60)
[2024-06-27] MEDS: Potassium Chlor 20 meq TAB.ER PO ONE (18:21)
[2024-06-29 16:18] LABS: Ferritin 48.8 ng/mL (11-307)
[2024-06-30 06:13] VITALS: BP 122/77
== END 2024-06-30 10:54 | disposition home or self-care (01) | DRG 773 ==
LOC: ED 11:41 → EDHOLD 11:41 → MEDTELE 06-27 14:20 → SUATTDRO 06-28 14:01
PROVIDERS: ADMIT Internal Medicine; ATTEND Student in an Organized Health Care Education/Training Program

== ENCOUNTER 2024-07-04 00:23 | Observation (INO) ==
[2024-07-04] MEDS ORDERED: Ondansetron ODT 4 mg TAB 4 MG TAB ONE (00:31)
[2024-07-04] MEDS: Ondansetron 4 mg VIAL 2 MG/ML 2 ml VIAL IV ONE ×2 (02:17→04:02)
[2024-07-04] MEDS: Lactated Ringers 1000 ml BAG 1,000 ML IV ONE ×3 (02:19→04:06)
[2024-07-04 02:32] LABS: ABS Monocytes 1.1 10^3/uL (0.0-0.9); ABS Neutrophils 10.9 10^3/uL (1.5-7.6); ABS Nucleated RBC 0.01 10^3/ul; Hematocrit 41.7 % (35-45); Hemoglobin 13.7 g/dL (11.5-14.3); Lymphocyte % 7.3 %; Mean Corpuscular Hemoglobin 29.4 pg (27-33); Mean Corpuscular Volume 89.3 fL (80-97); Mean Platelet Volume 7.3 fL (7.5-11.2); Platelet Count 447 10^3/uL (150-450); Red Blood Count 4.67 10^6/uL (3.63-4.92); Red Cell Distribution Width 15.4 % (12-17)
[2024-07-04 02:42] LABS: INR 1.3 (0.85-1.14)
[2024-07-04 03:13] LABS: ALT 52 U/L (7-52); AST 27 U/L (13-39); Albumin 4.1 g/dL (3.2-5.2); Albumin/Globulin Ratio 1.1 (1-3); Alcohol, S 120 mg/dL (<13); Alkaline Phosphatase 216 U/L (35-149); Anion Gap 23 mmol/L (2-16); Blood Urea Nitrogen 17 mg/dL (6-24); CO2 Carbon Dioxide 26 mmol/L (22-32); Calcium 8.9 mg/dL (8.6-10.3); Chloride 92 mmol/L (101-111); Creatinine, Serum 0.79 mg/dL (0.51-0.95); Globulin 3.6 g/dL (2-4); Glucose 118 mg/dL (70-100); Magnesium 1.8 mg/dL (1.9-2.7); Potassium 4.1 mmol/L (3.5-5.0); Sodium 141 mmol/L (135-145); Total Bilirubin 0.4 mg/dL (0.2-1.0); Total Protein 7.7 g/dL (6.4-8.9); eGFR CKD-EPI 101.9 (>60)
[2024-07-04 03:20] LABS: HCG Pregnancy < 0.60 mIU/mL
[2024-07-04] MEDS: Prochlorperazine 5 mg/ml 2 ml VIAL (10 mg) IV ONE (03:48)
[2024-07-04] MEDS: Magnesium Sulfate IV 1GM/100ML 1 GM/100 ML BAG IV ONE (03:49)
[2024-07-04] MEDS ORDERED: LORazepam 2 mg VIAL 1 ml ONE (04:01)
[2024-07-04] MEDS: LORazepam 2 mg VIAL 1 ml IV PUSH ONE ×3 (04:02→21:31)
[2024-07-04] MEDS ORDERED: Ondansetron 4 mg VIAL 2 MG/ML 2 ml VIAL ONE (04:02)
[2024-07-04] MEDS ORDERED: Lorazepam PYXIS KEY PRN ×4 (04:17→20:43)
[2024-07-04 05:07] LABS: C Reactive Protein < 1.00 mg/L (<8.01); Lipase 19 U/L (11.0-82.0)
[2024-07-04 05:15] LABS: ABS Lymphocytes 0.7 10^3/uL (1.0-4.8); ABS Monocytes 0.7 10^3/uL (0.0-0.9); ABS Neutrophils 7.2 10^3/uL (1.5-7.6); ABS Nucleated RBC 0.01 10^3/ul; Hematocrit 32.3 % (35-45); Hemoglobin 11.1 g/dL (11.5-14.3); Lymphocyte % 8.6 %; Mean Corpuscular Hemoglobin 30.6 pg (27-33); Mean Corpuscular Hgb Conc 34.3 g/dL (31-36); Mean Corpuscular Volume 89.4 fL (80-97); Mean Platelet Volume 7.3 fL (7.5-11.2); Nucleated Red Blood Cells % 0.1 %/100WBC (0.0-0.8); Platelet Count 332 10^3/uL (150-450); Red Blood Count 3.62 10^6/uL (3.63-4.92); Red Cell Distribution Width 15.3 % (12-17); White Blood Count 8.6 10^3/uL (3.8-11.8)
[2024-07-04] MEDS: Ondansetron 4 mg VIAL 2 MG/ML 2 ml VIAL IV PRN ×2 (05:20→16:44)
[2024-07-04 05:39] LABS: Calcium 7.8 mg/dL (8.6-10.3); Creatinine, Serum 0.71 mg/dL (0.51-0.95); Magnesium 1.2 mg/dL (1.9-2.7); Potassium 4.4 mmol/L (3.5-5.0); eGFR CKD-EPI 115.8 (>60)
[2024-07-04 05:57] LABS: Erythrocyte Sed Rate 12 mm/Hr (0-19)
[2024-07-04] MEDS: Iohexol 350 (CONTRAST) 500 ML MDV IV ONE (06:04)
[2024-07-04 07:57] LABS: Urine Appearance Clear; Urine Bilirubin Negative (Negative); Urine Blood Negative (Negative); Urine Color Light-Yellow; Urine Glucose Negative (Negative); Urine Ketones Negative (Negative); Urine Nitrite Negative (Negative); Urine Protein 1+ (>=30 mg/dL) (Negative); Urine Specific Gravity 1.031 (1.002-1.030); Urine Urobilinogen Negative (Negative)
[2024-07-04 08:05] LABS: Urine Benzodiazepine Screen None Detected (None Detect); Urine Cannabinoids Screen None Detected (None Detect); Urine Opiates Screen None Detected (None Detect)
[2024-07-04 08:30] LABS: Urine Bacteria Absent /HPF (Absent); Urine Red Blood Cell Absent /HPF (0-Trace); Urine Squamous Epithelial Cell Present /HPF (Absent); Urine White Blood Cell Absent /HPF (0-Trace)
[2024-07-04] MEDS: Magnesium Sulf 4 GM/100 ML IV 4,000 MG/100 ML BAG IVPB ONE (08:31)
[2024-07-04] MEDS: Lactated Ringers 1000 ml BAG 1,000 ML IV SCH (08:32)
[2024-07-04] MEDS: Thiamine 100 MG/ML 2 ml VIAL 100 MG, Folic Acid IV 1 MG, Multiple Vitamin IV ADULT 10 M... IV ONE (11:44)
[2024-07-04] MEDS: Multivitamins/Minerals TAB PO SCH (15:03)
[2024-07-04] MEDS: LORazepam 2 mg VIAL 1 ml IV PUSH PRN ×2 (15:12→17:59)
[2024-07-05 08:29] LABS: Hematocrit 30.4 % (35-45); Hemoglobin 10.3 g/dL (11.5-14.3); Mean Corpuscular Hemoglobin 30.9 pg (27-33); Mean Corpuscular Hgb Conc 33.9 g/dL (31-36); Mean Corpuscular Volume 91.1 fL (80-97); Mean Platelet Volume 7.8 fL (7.5-11.2); Platelet Count 260 10^3/uL (150-450); Red Blood Count 3.33 10^6/uL (3.63-4.92); Red Cell Distribution Width 15.4 % (12-17); White Blood Count 5.4 10^3/uL (3.8-11.8)
[2024-07-05 09:00] LABS: Creatinine, Serum 0.8 mg/dL (0.51-0.95); Potassium 3.4 mmol/L (3.5-5.0); eGFR CKD-EPI 100.3 (>60)
[2024-07-05] MEDS: Potassium Chlor 20 meq TAB.ER PO ONE (10:03)
[2024-07-05] MEDS: KCL 20 MEQ/100 ML IVPREMIX 20 MEQ/100 ML BAG IV ONE (10:04)
[2024-07-05] MEDS: Nicotine PATCH 21 MG/24 HR PATCH TRANSDERM SCH (12:21)
[2024-07-05] MEDS: CMC:Acamprosate DR 333 mg TAB (NF) PO SCH (15:10)
[2024-07-05] MEDS: Calcium Carb (TUMS) 500 mg CHEW TAB PO PRN (16:20)
[2024-07-06 07:26] LABS: ABS Eosinophils 0.1 10^3/uL (0.0-0.5); ABS Monocytes 0.5 10^3/uL (0.0-0.9); ABS Neutrophils 1.9 10^3/uL (1.5-7.6); ABS Nucleated RBC 0.02 10^3/ul; Eosinophil % 2.6 %; Hemoglobin 10.5 g/dL (11.5-14.3); Lymphocyte % 43.7 %; Mean Corpuscular Hemoglobin 30.8 pg (27-33); Mean Corpuscular Volume 90.4 fL (80-97); Mean Platelet Volume 7.5 fL (7.5-11.2); Nucleated Red Blood Cells % 0.5 %/100WBC (0.0-0.8); Platelet Count 283 10^3/uL (150-450); Red Blood Count 3.43 10^6/uL (3.63-4.92); Red Cell Distribution Width 14.9 % (12-17); White Blood Count 4.5 10^3/uL (3.8-11.8)
[2024-07-06 09:02] LABS: Calcium 8.1 mg/dL (8.6-10.3); Creatinine, Serum 0.76 mg/dL (0.51-0.95); Potassium 3.3 mmol/L (3.5-5.0); eGFR CKD-EPI 106.7 (>60)
[2024-07-06] MEDS: KCL 20 MEQ/100 ML IVPREMIX 20 MEQ/100 ML BAG IV ONE (09:41)
[2024-07-06 10:16] LABS: Magnesium 1.9 mg/dL (1.9-2.7)
[2024-07-06] MEDS: Potassium Chlor 20 meq TAB.ER PO ONE (10:16)
[2024-07-06] MEDS: Ondansetron 4 mg VIAL 2 MG/ML 2 ml VIAL IV PRN (10:16)
[2024-07-07 05:56] LABS: Hematocrit 33.4 % (35-45); Hemoglobin 11.4 g/dL (11.5-14.3); Mean Corpuscular Hgb Conc 34.1 g/dL (31-36); Mean Corpuscular Volume 90.9 fL (80-97); Platelet Count 335 10^3/uL (150-450); Red Blood Count 3.68 10^6/uL (3.63-4.92); Red Cell Distribution Width 15.1 % (12-17)
[2024-07-07 06:15] LABS: Calcium 8.6 mg/dL (8.6-10.3); Creatinine, Serum 0.77 mg/dL (0.51-0.95); Magnesium 1.9 mg/dL (1.9-2.7); Potassium 3.2 mmol/L (3.5-5.0)
[2024-07-07] MEDS: Potassium Chlor 20 meq TAB.ER PO ONE (08:26)
[2024-07-07 10:03] VITALS: BP 99/61
== END 2024-07-07 11:30 | disposition home or self-care (01) ==
LOC: EDHOLD 00:23 → ED 00:23 → SUATTDRO 04:40 → MEDTELE 10:39
PROVIDERS: ADMIT Student in an Organized Health Care Education/Training Program; ATTEND Hospitalist

== ENCOUNTER 2024-07-09 14:15 | Observation (INO) ==
[2024-07-09] MEDS: Lactated Ringers 1000 ml BAG 1,000 ML IV ONE ×2 (14:42→15:30)
[2024-07-09 14:56] LABS: ABS Lymphocytes 1.9 10^3/uL (1.0-4.8); ABS Monocytes 0.5 10^3/uL (0.0-0.9); ABS Neutrophils 3.2 10^3/uL (1.5-7.6); ABS Nucleated RBC 0.01 10^3/ul; Eosinophil % 0.3 %; Hematocrit 38.8 % (35-45); Hemoglobin 13.3 g/dL (11.5-14.3); Lymphocyte % 33.6 %; Mean Corpuscular Hgb Conc 34.2 g/dL (31-36); Mean Corpuscular Volume 90.7 fL (80-97); Mean Platelet Volume 7.5 fL (7.5-11.2); Nucleated Red Blood Cells % 0.1 %/100WBC (0.0-0.8); Platelet Count 529 10^3/uL (150-450); Red Blood Count 4.28 10^6/uL (3.63-4.92); Red Cell Distribution Width 16.1 % (12-17); White Blood Count 5.6 10^3/uL (3.8-11.8)
[2024-07-09 15:35] LABS: Albumin/Globulin Ratio 1.2 (1-3); Calcium 9.1 mg/dL (8.6-10.3); Creatinine, Serum 0.7 mg/dL (0.51-0.95); Globulin 3.4 g/dL (2-4); Potassium 3.5 mmol/L (3.5-5.0); Total Bilirubin 0.3 mg/dL (0.2-1.0); Total Protein 7.4 g/dL (6.4-8.9); eGFR CKD-EPI 117.8 (>60)
[2024-07-09] MEDS: Ondansetron 4 mg VIAL 2 MG/ML 2 ml VIAL IV ONE ×2 (17:01→18:00)
[2024-07-09] MEDS: Thiamine 100 MG/ML 2 ml VIAL (200 mg) IM ONE (18:00)
[2024-07-09] MEDS: Multivitamins/Minerals TAB PO SCH (18:31)
[2024-07-09] MEDS ORDERED: LORazepam 2 mg VIAL 1 ml IV PUSH PRN (23:10)
[2024-07-09] MEDS ORDERED: Lorazepam PYXIS KEY PRN (23:10)
[2024-07-10] MEDS: Ondansetron 4 mg VIAL 2 MG/ML 2 ml VIAL IV PRN ×2 (00:48→08:32)
[2024-07-10 01:09] LABS: High Sensitivity Troponin 1 Hr < 3 pg/mL (<15)
[2024-07-10 01:18] LABS: Calcium 8.4 mg/dL (8.6-10.3); Creatinine, Serum 0.79 mg/dL (0.51-0.95); Potassium 3.2 mmol/L (3.5-5.0); eGFR CKD-EPI 101.9 (>60)
[2024-07-10] MEDS: Lactated Ringers 1000 ml BAG 1,000 ML IV SCH (04:50)
[2024-07-10] MEDS: Potassium Chloride LIQUID 20 MEQ/15 ML LIQUID PO ONE ×2 (04:52→05:57)
[2024-07-10] MEDS ORDERED: Lorazepam PYXIS KEY PRN (05:44)
[2024-07-10] MEDS ORDERED: LORazepam 2 mg VIAL 1 ml IV PUSH PRN (05:47)
[2024-07-10 06:15] LABS: ABS Eosinophils 0.1 10^3/uL (0.0-0.5); ABS Lymphocytes 2.4 10^3/uL (1.0-4.8); ABS Monocytes 1.2 10^3/uL (0.0-0.9); Eosinophil % 0.7 %; Hematocrit 31.2 % (35-45); Hemoglobin 10.4 g/dL (11.5-14.3); Lymphocyte % 24.4 %; Mean Corpuscular Hemoglobin 30.2 pg (27-33); Mean Corpuscular Hgb Conc 33.3 g/dL (31-36); Mean Corpuscular Volume 90.7 fL (80-97); Mean Platelet Volume 7.3 fL (7.5-11.2); Platelet Count 389 10^3/uL (150-450); Red Blood Count 3.44 10^6/uL (3.63-4.92); Red Cell Distribution Width 15.5 % (12-17); White Blood Count 9.6 10^3/uL (3.8-11.8)
[2024-07-10 06:29] LABS: Albumin 3.3 g/dL (3.2-5.2); Albumin/Globulin Ratio 1.2 (1-3); Calcium 8.4 mg/dL (8.6-10.3); Creatinine, Serum 0.93 mg/dL (0.51-0.95); Globulin 2.7 g/dL (2-4); Phosphorus 4.1 mg/dL (2.5-5.0); Potassium 3.4 mmol/L (3.5-5.0); Total Bilirubin 0.5 mg/dL (0.2-1.0); eGFR CKD-EPI 83.7 (>60)
[2024-07-10 08:04] LABS: Magnesium 1.6 mg/dL (1.9-2.7)
[2024-07-10] MEDS: Potassium Chlor 20 meq TAB.ER PO ONE ×2 (08:34→08:35)
[2024-07-10] MEDS: Magnesium Sulfate 2 gm BAG 2 GM/50 ML BAG IVPB ONE (09:41)
[2024-07-10] MEDS: Thiamine 100 MG/ML 2 ml VIAL (200 mg) IM ONE (10:59)
[2024-07-10] MEDS ORDERED: LORazepam 2 mg VIAL 1 ml IV PUSH SCH (14:00)
[2024-07-11 06:03] LABS: Hematocrit 31.9 % (35-45); Hemoglobin 10.7 g/dL (11.5-14.3); Mean Corpuscular Hemoglobin 30.7 pg (27-33); Mean Corpuscular Hgb Conc 33.7 g/dL (31-36); Mean Corpuscular Volume 91.2 fL (80-97); Mean Platelet Volume 7.7 fL (7.5-11.2); Platelet Count 325 10^3/uL (150-450); Red Blood Count 3.49 10^6/uL (3.63-4.92); Red Cell Distribution Width 15.4 % (12-17); White Blood Count 5.2 10^3/uL (3.8-11.8)
[2024-07-11 06:29] LABS: Calcium 8.5 mg/dL (8.6-10.3); Creatinine, Serum 0.86 mg/dL (0.51-0.95); Potassium 2.7 mmol/L (3.5-5.0)
[2024-07-11] MEDS: KCL 20 MEQ/100 ML IVPREMIX 20 MEQ/100 ML BAG IV SCH (07:54)
[2024-07-11] MEDS: Potassium Chloride LIQUID 20 MEQ/15 ML LIQUID PO ONE (07:56)
[2024-07-11] MEDS: Multivitamins/Minerals TAB PO SCH (07:58)
[2024-07-11] MEDS: Potassium Chlor 20 meq TAB.ER PO ONE (08:32)
[2024-07-11] MEDS: Nicotine Lozenge mini 2 MG LOZNG.MINI MT PRN (11:05)
[2024-07-11 11:51] LABS: Calcium 8.1 mg/dL (8.6-10.3); Creatinine, Serum 0.82 mg/dL (0.51-0.95); Potassium 3.1 mmol/L (3.5-5.0); eGFR CKD-EPI 97.4 (>60)
[2024-07-11] MEDS: Potassium Chloride LIQUID 20 MEQ/15 ML LIQUID PO SCH (12:20)
[2024-07-11 14:11] VITALS: BP 114/76
[2024-07-14 15:00] LABS: Urine Collection Duration 24 h; Urine Volume 2000 mL
== END 2024-07-11 16:36 | disposition home or self-care (01) ==
LOC: ED 14:15 → EDHOLD 14:15 → SUATTDRO 22:02 → MEDTELE 07-10 03:09
PROVIDERS: ADMIT Internal Medicine; ATTEND Hospitalist